=== PATIENT | female | born 1970 | race Caucasian/White ===

== ENCOUNTER → 2019-12-22 14:39 | Outpatient (BNVA) | payer OTHER, SELFPAY | PROVIDERS: Family Provider Nurse Practitioner; PCP Nurse Practitioner Family; Visit Provider Nurse Practitioner Family | DX: E11.9 Type 2 diabetes mellitus without complications (principal); R63.5 Abnormal weight gain; R53.83 Other fatigue; R31.9 Hematuria, unspecified; B00.9 Herpesviral infection, unspecified; I10 Essential (primary) hypertension | CPT/HCPCS: 80053; 80061; 81003; 82306; 82607; 83001; 83002; 83036; 84146; 84443; 85025 ==

== ENCOUNTER 2020-06-03 07:58 | Outpatient (CLI) | payer OTHER, SELFPAY ==
--- NOTE | 2020-06-03 08:00 | USCV_ITS ---
Yesenia Patel Age: 49 Gender: F : 1970 Exam Date: 06/03/2020 08:19 Ordering Phys: Court Ramsey MD ([email or web address]) Technologist: Nancy Brumfield Exam Location: [facility] – [place] Indication: BICUSPID VALVE BP: 128 / 83 HR: 67 Rhythm: Sinus Technical Quality: Adequate MEASUREMENTS (Male / Female) Normal Values 2D ECHO LV Diastolic Diameter PLAX 4.1 cm 4.2 - 5.9 / 3.9 - 5.3 cm LV Systolic Diameter PLAX 2.3 cm LV Chamber Size 3.5 cm IVS Diastolic Thickness 1.1 cm 0.6 - 1.0 / 0.6 - 0.9 cm IVS Systolic Thickness 1.4 cm LVPW Diastolic Thickness 0.9 cm 0.6 - 1.0 / 0.6 - 0.9 cm LVPW Systolic Thickness 1.5 cm RV Chamber Size 2.8 cm LVOT Diameter 2.0 cm LV Ejection Fraction 2D Teich 75.9 % LV Ejection Fraction MOD 2C 60.3 % LV Ejection Fraction 2C AL 60.0 % LA Diameter 2.8 cm LA Width 1.8 cm LA Height 3.0 cm RA Width 3.1 cm RA Height 4.0 cm Aorta at Sinotubular Diameter 2.7 cm M-MODE LV Diastolic Diameter MM 4.4 cm 4.2 - 5.9 / 3.9 - 5.3 cm LV Systolic Diameter MM 3.2 cm LV Ejection Fraction MM Teich 53.5 % IVS Diastolic Thickness MM 1.0 cm 0.6 - 1.0 / 0.6 - 0.9 cm IVS Systolic Thickness MM 1.2 cm LVPW Diastolic Thickness MM 1.1 cm 0.6 - 1.0 / 0.6 - 0.9 cm LVPW Systolic Thickness MM 1.3 cm RV Diastolic Diameter MM 0.9 cm Aortic Annulus Diameter 2.9 cm LA Ao Ratio MM 1.1 MV E Point Septal Separation 0.2 cm DOPPLER AV Peak Velocity 171.0 cm/s LVOT Peak Velocity 90.3 cm/s AV Area Cont Eq vti 2.1 cm squared AV Area Cont Eq pk 1.7 cm squared MV Area PHT 4.4 cm squared Mitral E to A Ratio 1.2 MV E' Velocity 48.0 cm/s Mitral E to MV E' Ratio 6.7 Mitral E to LV E' Lateral Ratio 6.6 Mitral E to LV E' Septal Ratio 6.8 TR Peak Velocity 167.3 cm/s TR Peak Gradient 11.2 mmHg TR Mean Velocity 110.9 cm/s TR Mean Gradient 5.9 mmHg TR Velocity Time Integral 38.5 cm TV Peak E Velocity 73.0 cm/s Right Atrial Pressure 3.0 mmHg Pulmonary Artery Systolic Pressu 14.2 mmHg PV Peak Velocity 80.0 cm/s RV Acceleration Time 0.2 s RV Ejection Time 0.3 s RV AcT/ET 0.5 FINDINGS Left Ventricle Normal left ventricular size and systolic function, EF 61 %. No regional wall motion abnormalities. Right Ventricle The right ventricle is normal in size and function. Right Atrium The right atrium is normal in size. Left Atrium The left atrium is normal in size. Mitral Valve Thickened mitral valve. Mild mitral annular calcification. Aortic Valve Aortic valve leaflets could not be visualized properly. Possibly bicuspid with a peak velocity of 1.71 m/s Tricuspid Valve No gross abnormalities noted Pulmonic Valve No gross abnormalities noted Pericardium Normal pericardium without effusion. Aorta Normal ascending aorta dimension. CONCLUSIONS Normal left ventricular size and systolic function, EF 61 %. No regional wall motion abnormalities. Thickened mitral valve. Mild mitral annular calcification. Aortic valve leaflets could not be visualized well. Possibly bicuspid. Peak velocity across the valve was 1. 71 m/s No significant stenotic or regurgitant lesions. Normal cardiac chamber sizes. No intracardiac shunts, based on color flow Doppler examination. Compared to the previous study from 04/19/2015, there may not be a significant change Dr Court Ramsey MD FACC (Electronically Signed) Final Date: 03 June 2020 10:25 S
== END 2020-06-03 07:59 | disposition home or self-care (01) ==
LOC: RAD 08:03
PROVIDERS: PCP Nurse Practitioner Family; Visit Provider Internal Medicine Cardiovascular Disease
DX: Q23.1 Congenital insufficiency of aortic valve (principal); I05.9 Rheumatic mitral valve disease, unspecified
CPT/HCPCS: 93306

== ENCOUNTER → 2022-05-08 10:41 | Outpatient (BNVA) | payer OTHER, SELFPAY | PROVIDERS: PCP Nurse Practitioner Family; Visit Provider Internal Medicine Cardiovascular Disease | DX: Q23.1 Congenital insufficiency of aortic valve (principal); R06.02 Shortness of breath; R00.2 Palpitations; N18.9 Chronic kidney disease, unspecified; R25.2 Cramp and spasm; I10 Essential (primary) hypertension; E11.65 Type 2 diabetes mellitus with hyperglycemia; R42 Dizziness and giddiness | CPT/HCPCS: 36415; 80048; 83735; 84443 ==

== ENCOUNTER 2022-11-30 07:57 | Outpatient (CLI) | payer OTHER, SELFPAY ==
--- NOTE | 2022-11-30 08:00 | USCV_ITS ---
Yesenia Patel Age: 52 Gender: F : 1970 Exam Date: 11/30/2022 08:19 Ordering Phys: Court Ramsey MD ([email or web address]) Technologist: CT Exam Location: [facility] – [place] Indication: BICUSP VALVE BP: 135 / 83 HR: 73 Rhythm: Sinus Technical Quality: Adequate MEASUREMENTS (Male / Female) Normal Values 2D ECHO LV Diastolic Diameter PLAX 4.0 cm 4.2 - 5.9 / 3.9 - 5.3 cm LV Systolic Diameter PLAX 2.4 cm IVS Diastolic Thickness 1.2 cm 0.6 - 1.0 / 0.6 - 0.9 cm IVS Systolic Thickness 1.5 cm LVPW Diastolic Thickness 0.9 cm 0.6 - 1.0 / 0.6 - 0.9 cm LVPW Systolic Thickness 1.7 cm LVOT Diameter 2.0 cm LV Ejection Fraction 2D Teich 67.1 % LV Ejection Fraction MOD 2C 65.8 % LV Ejection Fraction 2C AL 65.9 % LA Diameter 2.1 cm Aorta at Sinotubular Diameter 2.3 cm IVC Diameter 1.2 cm M-MODE Aortic Annulus Diameter 2.8 cm LA Ao Ratio MM 0.8 MV E Point Septal Separation 0.7 cm DOPPLER AV Peak Velocity 150.0 cm/s LVOT Peak Velocity 142.0 cm/s AV Area Cont Eq vti 3.4 cm squared AV Area Cont Eq pk 2.9 cm squared MV Peak Velocity 85.0 cm/s MV Area PHT 5.0 cm squared Mitral E to A Ratio 0.9 MV E' Velocity 34.0 cm/s Mitral E to MV E' Ratio 9.0 Mitral E to LV E' Lateral Ratio 8.9 Mitral E to LV E' Septal Ratio 9.3 TR Peak Velocity 131.0 cm/s TR Peak Gradient 6.9 mmHg TV Peak E Velocity 71.0 cm/s Right Atrial Pressure 3.0 mmHg Pulmonary Artery Systolic Pressu 9.9 mmHg PV Peak Velocity 126.0 cm/s RV Acceleration Time 0.3 s FINDINGS Left Ventricle Normal left ventricular size and systolic function, EF 60 %. No regional wall motion abnormalities. Grade I/IV diastolic dysfunction (abnormal relaxation filling pattern), normal to mildly elevated filling pressures. Normal left ventricular size and systolic function, EF 60 %. Mild left ventricular hypertrophy. Right Ventricle Normal right ventricular size and systolic function. Right Atrium Normal right atrial size. Left Atrium The left atrium is normal in size. Mitral Valve No gross abnormalities noted Aortic Valve The leaflets could not be visualized well. Peak velocity across the valve is 1.5 m/s Tricuspid Valve Structurally normal tricuspid valve. Pulmonic Valve No gross abnormalities noted Pericardium No pericardial effusion. Aorta Normal aortic annulus size. IVC Normal inferior vena cava. CONCLUSIONS Normal left ventricular size and systolic function, EF 60 %. No regional wall motion abnormalities. Grade I/IV diastolic dysfunction (abnormal relaxation filling pattern), normal to mildly elevated filling pressures. Normal left ventricular size and systolic function, EF 60 %. Mild left ventricular hypertrophy. Aortic valve leaflets could not be visualized well. Peak velocity across the valve is 1.5 m/s. Normal chamber sizes. There is no pericardial effusion. There are no intracardiac masses. Compared to the study from 06/03/2020, no significant change in the aortic valve peak velocity. Dr Court Ramsey MD FACC (Electronically Signed) Final Date: 01 December 2022 17:57 S
== END 2022-11-30 07:58 | disposition home or self-care (01) ==
PROVIDERS: PCP Nurse Practitioner Family; Visit Provider Internal Medicine Cardiovascular Disease
DX: R06.09 Other forms of dyspnea (principal)
CPT/HCPCS: 93306

== ENCOUNTER 2023-04-27 01:43 | Inpatient (IN) | payer OTHER, SELFPAY ==
[2023-04-27] VITALS (13 sets, daily range): BP systolic 119–152; BP diastolic 66–87; PULSE 44–86; RESP 15–22; TEMP 36.3–36.9; O2SAT 96–98; BMI 28.3
--- NOTE | 2023-04-27 01:51 | XRR_ITS ---
PROCEDURE INFORMATION: Exam: XR Chest Exam date and time: 04/27/2023 1:56 AM Age: 52 years old Clinical indication: Prior surgery; Surgery date: 6+ months; Surgery type: Breast reduction; Patient HX: Epigastric pain with n/v TECHNIQUE: Imaging protocol: Radiologic exam of the chest. Views: 1 view. COMPARISON: CR XR chest 1V [id number] 10/23/2017 7:50 PM FINDINGS: Lungs: Unremarkable. No consolidation. Pleural spaces: Unremarkable. No pleural effusion. No pneumothorax. Heart/Mediastinum: Unremarkable. No cardiomegaly. Bones/joints: Degenerative changes are noted in the bones. XR/XR chest 1V portable [id number] IMPRESSION: No acute cardiopulmonary disease.
--- NOTE | 2023-04-27 02:01 | ECG_ITS ---
[facility] Test Date: 2023-04-27 Pat Name: Yesenia Patel Department: Room: Gender: Female Blood Coordinator: : 1970 Requested By: Ovidio Singh Order Number: [id number] Lasha MD: Essence Carrillo M.D. Measurements Intervals [place] Rate: 79 P: 63 RI: 204 QRS: 90 QRSD: 98 T: 59 QT: 377 QTc: 432 Interpretive Statements SINUS RHYTHM Compared to ECG 10/23/2017 22:04:55 No significant changes Electronically Signed On 04-27-2023 12:11:23 CDT by Essence Carrillo M.D. [id number] f
--- NOTE | 2023-04-27 02:02 | CTR_ITS ---
PROCEDURE INFORMATION: Exam: CT Abdomen And Pelvis With Contrast Exam date and time: 04/27/2023 2:29 AM Age: 52 years old Clinical indication: Nausea and vomiting; Abdominal pain; Prior surgery; Surgery date: 6+ months; Surgery type: Breast reduction. Hysterectomy; Patient HX: Epigastric pain with n/v. TECHNIQUE: Imaging protocol: Computed tomography of the abdomen and pelvis with contrast. Radiation optimization: All CT scans at this facility use at least one of these dose optimization techniques: automated exposure control; mA and/or kV adjustment per patient size (includes targeted exams where dose is matched to clinical indication); or iterative reconstruction. Contrast material: OMNI 350; Contrast volume: 100 ml; Contrast route: INTRAVENOUS (IV); REPORTING DATA: Count of CT and Cardiac NM exams in prior 12 months: This patient has received 0 known CTs and 0 known cardiac nuclear medicine studies in the 12 months prior to the current study. COMPARISON: CR (CHEST, ) 04/27/2023 1:56 AM RADIATION DOSE METRICS: Total DLP (mGy-cm): 1141.62 FINDINGS: Liver: There is a small area of geographic relative hypodensity/hypoenhancement along the falciform ligament most likely representing focal fatty infiltration. Gallbladder and bile ducts: The gallbladder is distended. Pancreas: Normal. No ductal dilation. Spleen: Normal. No splenomegaly. Adrenal glands: Normal. No mass. Kidneys and ureters: The kidneys enhance symmetrically and there is no hydronephrosis. Probable parapelvic cysts are noted in the left. This could be confirmed with delayed postcontrast CT of the abdomen. Stomach and bowel: The colon is relatively contracted with scattered stool in the cecum and ascending segments. Appendix: No evidence of appendicitis. Intraperitoneal space: Unremarkable. No free air. No significant fluid collection. Vasculature: Unremarkable. No abdominal aortic aneurysm. Lymph nodes: Unremarkable. No enlarged lymph nodes. Urinary bladder: The urinary bladder is contracted. Reproductive: Gynecologic structures are not well seen and may be atrophic or surgically absent. There is a 4-5 mm enhancing nodule in the apex of the cervix at the level of the oversewn cuff on the left please correlate clinically . Consider MRI of the pelvis with and without intravenous contrast to further assess. Bones/joints: Mild degenerative change is noted in the bones. There is a questionable vague lucency in the right side of L5. Please correlate with nuclear bone scan. Soft tissues: Unremarkable. CT/CT abdomen pelvis w con* [id number] IMPRESSION: No acute intra-abdominal process. Query small focal fatty infiltration of the liver. Probable left-sided parapelvic renal cysts versus caliectasis may be differentiated with delayed postcontrast CT imaging of the abdomen. Apparent hysterectomy with a small enhancing nodule along the left apex of the cervical cuff. Please correlate with MRI of the pelvis with and without intravenous contrast. Vague lucency within the right side of L5. Recommend nuclear bone scan to further assess.
--- NOTE | 2023-04-27 02:05 | W.ED.ABDPA2 ---
HPI - Abdominal Pain General: Chief Complaint: Abdominal Pain Stated Complaint: ABD PAIN Time Seen by Provider: 04/27/23 01:47 Source: patient and family History of Present Illness: 52-year-old female with sudden onset abdominal pain around an hour ago. She is nauseated, and has been vomiting. No known starting event. She has been having these pains on and off, but not nearly as severe, according to her . She presents by ambulance. She was given 50 mcg of fentanyl in route, without relief. No fever. MD elicited complaint: abdominal pain Associated Symptoms: Reports diarrhea, nausea and vomiting; Denies chills, fever(s) and hematochezia Review of Systems Const: Denies: fever(s), chills or body aches Card: Denies: chest pain or palpitations Resp: Denies: dyspnea, productive cough, non-productive cough or wheezing GI: Reports: abdominal pain, nausea, vomiting and diarrhea; Denies: hematochezia : Denies: difficulty voiding Skin/Breast: Denies: rash Neuro: Denies: headache(s), weakness in extremities, dizziness or confusion PFSH ED PFSH: Medical History (Updated 04/27/23 @ 04:04 by Ovidio Cancino DO) Benign essential HTN Bicuspid aortic valve Herpes Leg swelling Palpitations Type 2 diabetes mellitus Surgical History Hx of breast reduction, elective S/P hysterectomy Family History Mother Cancer THYROID Diabetes CAD (coronary artery disease) Stroke Brother CAD (coronary artery disease) Diabetes Denies family history of Clotting disorder Dementia Chronic kidney disease (CKD) Suicide Anesthesia complication Bleeding disorder Lung disease Social History Smoking and tobacco status: former smoker Second hand smoke exposure: No Alcohol intake: never Substance/Drug Use: never Household members: spouse Marital status: Physical Exam Const: COMMON NORMALS: no acute distress GENERAL APPEARANCE: cooperative and ill appearing HENMT: COMMON NORMALS: normocephalic, atraumatic and Normal external nose present HEAD & SCALP: normocephalic and atraumatic FACE & SINUS: normal facial exam and face symmetric NOSE: Normal external nose present Eye: COMMON NORMALS: Equal, round and reactive pupils present and EOMs intact bilaterally PUPIL: Yes Equal, round and reactive pupils present Neck/C-Spine: GENERAL: Yes trachea midline Chest: CHEST: Yes Symmetrical chest wall rise Resp: COMMON NORMALS: normal respiratory effort, No retractions, No use of accessory muscles and clear to auscultation bilaterally AUSCULTATION: clear to auscultation bilaterally Cardio: COMMON NORMALS: regular rate and regular rhythm RATE: regular rate RHYTHM: regular rhythm GI: COMMON NORMALS: Normal to inspection, nondistended, normoactive bowel sounds present and Soft to palpation PALPATION: Yes Soft to palpation and Yes Tenderness to palpation present (GI) Extremity: COMMON NORMALS: no pedal edema Neuro: ISAÍAS COMA SCALE: document GCS findings Isaías coma scale eye opening: Spontaneous [place] coma scale verbal response: Orientated Isaías coma scale motor response: Obey commands Isaías coma scale total score: 15 SENSORY EXAM: Yes extremities (intact) Psych: COMMON NORMALS: speech normal SPEECH: Yes normal speech Skin: COMMON NORMALS: no rashes or lesions noted GENERAL SKIN EXAM: no rashes or lesions noted Course Vital Signs: Vital signs: Vital Signs Temperature 98.3 F 04/27/23 01:45 Pulse Rate 78 04/27/23 01:53 Respiratory Rate 20 H 04/27/23 01:53 Blood Pressure 147/87 04/27/23 01:53 Pulse Oximetry 98 04/27/23 01:53 MDM - Abdominal Pain Medical Decision Making 52-year-old female with epigastric pain vomiting. No fever. She is bradycardic now with heart rates in the 45-60s. She is very tender in her epigastrium. CBC is normal. BMP is normal. Liver enzymes are essentially normal. Lipase is greater than 4000. Chest x-ray is negative. CT shows no acute intra-abdominal process. No definite stranding around the pancreas. Gallbladder is mildly distended. She is improved to some degree after Dilaudid, Haldol, and Zofran, but still very nauseated, continuing to vomit, and still in pain. She will be admitted for pancreatitis. This could be pancreatitis related to Ozempic as she started that a couple of months ago, versus another unknown cause, but does not appear to be obstructive given her normal bilirubin of 0.4. Lab Data 04/27/23 01:30 04/27/23 01:30 Labs/Radiology: Radiology Impressions Chest X-Ray 04/27/23 01:51 IMPRESSION: No acute cardiopulmonary disease. Abdomen/Pelvis CT 04/27/23 02:02 IMPRESSION: No acute intra-abdominal process. Query small focal fatty infiltration of the liver. Probable left-sided parapelvic renal cysts versus caliectasis may be differentiated with delayed postcontrast CT imaging of the abdomen. Apparent hysterectomy with a small enhancing nodule along the left apex of the cervical cuff. Please correlate with MRI of the pelvis with and without intravenous contrast. Vague lucency within the right side of L5. Recommend nuclear bone scan to further assess. Laboratory Results WBC 10.09 10^3/uL (3.29-11.43) 04/27/23 01:30 RBC 4.89 10^6/uL (3.85-5.65) 04/27/23 01:30 Hgb 13.80 g/dL (11.27-16.99) 04/27/23 01:30 Hct 40.8 % (36-47) 04/27/23 01:30 MCV 83.4 fl (85-98) L 04/27/23 01:30 MCH 28.2 pg (27-33) 04/27/23 01:30 MCHC 33.8 g/dL (30-55) 04/27/23 01:30 RDW 13.2 % (12.1-15.1) 04/27/23 01:30 Plt Count 310 10^3/cmm (157-399) 04/27/23 01:30 MPV 10.3 fL (7.4-10.4) 04/27/23 01:30 Neut % (Auto) 49.0 % 04/27/23 01:30 Lymph % (Auto) 40.6 % 04/27/23 01:30 [place]cock % (Auto) 7.9 % 04/27/23 01:30 Eos % (Auto) 1.6 % 04/27/23 01:30 Baso % (Auto) 0.6 % 04/27/23 01:30 Neut # (Auto) 4.94 10^3/uL (1.8-7.7) 04/27/23 01:30 Lymph # (Auto) 4.1 10^3/uL (0.8-4.8) 04/27/23 01:30 Hitchcock # (Auto) 0.8 10^3/uL (0.2-0.9) 04/27/23 01:30 Eos # (Auto) 0.2 10^3/uL (0.0-0.8) 04/27/23 01:30 Baso # (Auto) 0.1 10^3/uL (0.0-0.1) 04/27/23 01:30 Nucleated RBC % (auto) 0 % 04/27/23 01:30 Nucleated RBCs # 0.0 /100WBC 04/27/23 01:30 PT 12.00 SECONDS (12.1-14.9) L 04/27/23 01:30 INR 0.86 (0.8-1.2) 04/27/23 01:30 Sodium 139 mmol/L (136-145) 04/27/23 01:30 Potassium 3.9 mmol/L (3.5-5.1) 04/27/23 01:30 Chloride 102 mmol/L (98-107) 04/27/23 01:30 Carbon Dioxide 23 mmol/L (22-29) 04/27/23 01:30 Anion Gap 17.9 (5-19) 04/27/23 01:30 BUN 12 mg/dL (6-20) 04/27/23 01:30 Creatinine 0.8 mg/dL (0.5-0.9) 04/27/23 01:30 GFR Calculation 75.9 mL/min (90-130) L 04/27/23 01:30 Glucose 136 mg/dL (65-115) H 04/27/23 01:30 Calculated Osmolality 290 mOsm/kg (285-295) 04/27/23 01:30 Calcium 9.7 mg/dL (8.5-10.5) 04/27/23 01:30 Total Bilirubin 0.4 mg/dL (0.15-1.2) 04/27/23 01:30 AST 41 U/L (0-32) H 04/27/23 01:30 ALT 34 U/L (0-33) H 04/27/23 01:30 Alkaline Phosphatase 144 U/L (35-105) H 04/27/23 01:30 Troponin T Baseline 6 ng/L (0-10) 04/27/23 01:30 NT-Pro-B Natriuret Pep 36 pg/mL (0-125) 04/27/23 01:30 Total Protein 7.2 g/dL (6.6-8.7) 04/27/23 01:30 Albumin 4.4 g/dL (3.5-5.2) 04/27/23 01:30 Globulin 2.8 g/dL (1.3-4.6) 04/27/23 01:30 Lipase > 4040 U/L (13-60) H 04/27/23 01:30 Urine Color Yellow (Yellow) 04/27/23 03:30 Urine Appearance Clear (CLEAR) 04/27/23 03:30 Urine pH 6.5 (5-7) 04/27/23 03:30 Ur Specific [place] 1.015 (1.005-1.030) 04/27/23 03:30 Urine Protein Trace (Negative) 04/27/23 03:30 Urine Glucose (UA) 1+ (Normal) H 04/27/23 03:30 Urine Ketones 1+ (Negative) H 04/27/23 03:30 Urine Blood Neg (Negative) 04/27/23 03:30 Urine Nitrate Negative (Negative) 04/27/23 03:30 Urine Bilirubin Neg (Negative) 04/27/23 03:30 Urine Urobilinogen Neg mg/dL (Negative) 04/27/23 03:30 Ur Leukocyte Esterase Negative (Negative) 04/27/23 03:30 Urine RBC Rare /hpf (0-2) 04/27/23 03:30 Urine WBC Rare /hpf (0-5) 04/27/23 03:30 Ur Squamous Epith Cells 5-10 /hpf (0-5) H 04/27/23 03:30 Amorphous Sediment Not Reportable 04/27/23 03:30 Urine Bacteria Trace /hpf (NONE) 04/27/23 03:30 Urine Opiates Screen Positive ng/mL (Negative) H 04/27/23 03:30 Ur Barbiturates Screen Negative ng/mL (Negative) 04/27/23 03:30 Ur Phencyclidine Scrn Negative ng/mL (Negative) 04/27/23 03:30 Ur Amphetamines Screen Negative ng/mL (Negative) 04/27/23 03:30 U Benzodiazepines Scrn Positive ng/mL (Negative) H 04/27/23 03:30 Urine Cocaine Screen Negative ng/mL (Negative) 04/27/23 03:30 U Marijuana (THC) Screen Negative ng/mL (Negative) 04/27/23 03:30 XR interpretation done by ED provider, pending radiology final review Discharge Plan Discharge Patient Disposition: Admitted As Inpatient Clinical Impression: Pancreatitis Condition: Stable Coding Level of Care Code ED Clinical Operations Specialist for Candice Stewart
[2023-04-27] MEDS: ondansetron 2 mg/ML SDV 2 mL 4 MG IVP ×2 (02:14→06:29)
[2023-04-27 02:16] LABS: Basophils # 0.1 10^3/uL (0.0-0.1); Basophils % 0.6 %; Eosinophils # 0.2 10^3/uL (0.0-0.8); Eosinophils % 1.6 %; Hematocrit 40.8 % (36-47); Lymphocytes # 4.1 10^3/uL (0.8-4.8); Lymphocytes % 40.6 %; Mean Corpuscular HGB Conc 33.8 g/dL (30-55); Mean Corpuscular Hemoglobin 28.2 pg (27-33); Mean Corpuscular Volume 83.4 fl (85-98); Mean Platelet Volume 10.3 fL (7.4-10.4); Monocytes # 0.8 10^3/uL (0.2-0.9); Monocytes % 7.9 %; Neutrophils # 4.94 10^3/uL (1.8-7.7); Nucleated Red Blood Cells % 0 %; Platelet Count 310 10^3/cmm (157-399); Red Blood Count 4.89 10^6/uL (3.85-5.65); Red Cell Distribution Width 13.2 % (12.1-15.1); White Blood Count 10.09 10^3/uL (3.29-11.43)
[2023-04-27] MEDS: HYDROmorphone 1 mg/mL INJ 1 mL 0.5 MG IVP (02:17)
[2023-04-27] MEDS: iohexol 350 mg/mL 500 mL Btl (per mL) IV (02:30)
[2023-04-27 02:34] LABS: Troponin(5th) Baseline 6 ng/L (0-10)
[2023-04-27 02:44] LABS: Alanine Aminotransferase 34 U/L (0-33); Albumin Level 4.4 g/dL (3.5-5.2); Alkaline Phosphatase 144 U/L (35-105); Anion Gap 17.9 (5-19); Aspartate Amino Transferase 41 U/L (0-32); Blood Urea Nitrogen 12 mg/dL (6-20); Calcium 9.7 mg/dL (8.5-10.5); Carbon Dioxide 23 mmol/L (22-29); Chloride 102 mmol/L (98-107); Globulin 2.8 g/dL (1.3-4.6); Glomerular Filtration Rate 75.9 mL/min (90-130); Glucose 136 mg/dL (65-115); NT Pro B Type Natriuretic Pept 36 pg/mL (0-125); Osmolality Calculated 290 mOsm/kg (285-295); Potassium 3.9 mmol/L (3.5-5.1); Sodium 139 mmol/L (136-145); Total Bilirubin 0.4 mg/dL (0.15-1.2); Total Protein 7.2 g/dL (6.6-8.7)
[2023-04-27] MEDS: haloperidol inj 5 mg/mL INJ 1 mL 3 MG IVP (02:44)
[2023-04-27] MEDS: sodium chloride 0.9% 1,000 ML 999 ML IV (03:33)
[2023-04-27 03:39] LABS: INR 0.86 (0.8-1.2)
[2023-04-27 03:46] LABS: Add Urine Microscopic? YES; Bacteria Urine TRACE /hpf; Bilirubin Urine Neg (Negative); Blood Urine Neg (Negative); Glucose Urine UA 1+ (Normal); Ketones Urine 1+ (Negative); Leukocyte Esterase Urine Negative (Negative); Nitrate Urine Negative (Negative); Protein Urine Trace (Negative); RBC Urine RARE /hpf (0-2); Specific Gravity, Urine 1.015 (1.005-1.030); Urine Appearance Clear (CLEAR); Urine Color Yellow (Yellow); Urobilinogen Urine Neg (Negative); WBC Urine RARE /hpf (0-5); pH Urine 6.5 (5-7)
[2023-04-27 03:47] LABS: Add Urine Culture? No; Amphetamines Screen Urine Negative (Negative); Barbiturates Screen Urine Negative (Negative); Benzodiazepines Screen Urine Positive (Negative); Cocaine Screen Urine Negative (Negative); Opiate Screen Urine Positive (Negative); PCP Screen Urine Negative (Negative); THC Screen Urine Negative (Negative)
[2023-04-27 04:12] LABS: Troponin 5 2HR Delta 0 ABS# (0-10)
--- NOTE | 2023-04-27 05:14 | ECG_ITS ---
[facility] Test Date: 2023-04-27 Pat Name: Yesenia Patel Department: Room: 259 Gender: Female Drawbridge Operator: : 1970 Requested By: Ovidio Singh Order Number: [id number] Colby MD: Essence Carrillo M.D. Measurements Intervals [place] Rate: 56 P: 58 [place]: 213 QRS: 73 QRSD: 101 T: 60 QT: 437 QTc: 425 Interpretive Statements SINUS BRADYCARDIA WITH SINUS ARRHYTHMIA WITH FIRST DEGREE AV BLOCK Compared to ECG 04/27/2023 02:01:46 First degree AV block now present Sinus rhythm no longer present Electronically Signed On 04-27-2023 12:12:06 CDT by Essence Carrillo M.D. [id number]
--- NOTE | 2023-04-27 05:26 | P.HP_ITS ---
Providers/Chief Complaint Admitting Physician: Barbara Laguerre MD Primary Care Provider: Stefanie Roy APN Chief Complaint: ABD PAIN History of Present Illness Yesenia Patel is a 52 year old female with history of type II diabetes hypertension presented with complaint of nausea vomiting and severe abdominal pain since 12 hours. She reports pain in epigastric and right upper quadrant severe 10/10 crampy radiating to back aggravated by nausea and vomiting no relieving factors. She denies any alcohol abuse. She did not have similar complaints in the past. On further questioning she mentions she was recently started on Ozempic 3 months ago and since then she has been having off-and-on gastric issues. She denies any history of fever cold cough chest pain or urina ry complaints. Also reports eating catered food 2 days ago. Review of Systems Narrative: As per HPI Medications/Allergies Home Medications Medication Instructions Recorded Confirmed Last Taken Type bupropion HCl 150 mg 24 hr tablet, See Rx Instructions .Route 11/25/20 04/27/23 04/26/23 21:00 Rx extended release .COMPLEX #30 tabs acyclovir 400 mg tablet 400 mg PO TID PRN fever blister 05/09/21 04/27/23 Unknown History albuterol sulfate 90 mcg/actuation 1 puff inhalation Q4H PRN 05/08/22 04/27/23 Unknown History aerosol inhaler Shortness Of Breath lisinopril 40 mg tablet 20 mg PO BEDTIME 05/08/22 04/27/23 04/26/23 21:00 History semaglutide 0.25 mg or 0.5 mg (2 0.5 mg SUBCUT Q7D 04/27/23 04/27/23 04/22/23 History mg/3 mL) subcutaneous pen injector (Ozempic) Allergies Allergy/AdvReac Type Severity Reaction Status Date / Time codeine AdvReac Severe NAUSEA Verified 11/05/22 10:14 PFSH Acute PFSH: Medical History Benign essential HTN Bicuspid aortic valve Herpes Leg swelling Palpitations Type 2 diabetes mellitus Surgical History Hx of breast reduction, elective S/P hysterectomy Family History Mother Cancer THYROID Diabetes CAD (coronary artery disease) Stroke Brother CAD (coronary artery disease) Diabetes Denies family history of Clotting disorder Dementia Chronic kidney disease (CKD) Suicide Anesthesia complication Bleeding disorder Lung disease Social History Smoking and tobacco status: former smoker Second hand smoke exposure: No Alcohol intake: never Substance/Drug Use: never Household members: spouse Marital status: Vitals/I&O/Wt Last Vital Signs Temp 98.3 F 04/27/23 01:45 Pulse 79 04/27/23 04:54 Resp 22 H 04/27/23 04:24 BP 119/66 04/27/23 04:24 Pulse Ox 96 04/27/23 04:54 O2 Del Method Room Air 04/27/23 04:59 04/26/23 04/26/23 04/27/23 14:59 22:59 06:59 Intake Total 1000 / 1000 Balance 1000 / 1000 Weight last 48 hrs Weight 74.843 kg Physical Exam Narrative: She is alert awake oriented x3 in moderate acute distress due to pain Chest clear to auscultation bilaterally Cardiovascular normal heart sounds regular rhythm Abdomen soft mildly distended tender in epigastric and right upper quadrant normal bowel sounds Extremities no pedal edema noted Data 04/27/23 01:30 04/27/23 01:30 CT Abd/Pel: Radiologist's impression: MPRESSION: No acute intra-abdominal process. ? Query small focal fatty infiltration of the liver. ? Probable left-sided parapelvic renal cysts versus caliectasis may be differentiated with delayed postcontrast CT imaging of the abdomen. ? Apparent hysterectomy with a small enhancing nodule along the left apex of the cervical cuff.? Please correlate with MRI of the pelvis with and without intravenous contrast. ? Vague lucency within the right side of L5.? Recommend nuclear bone scan to further assess. CXR: Radiologist's impression: No acute findings EKG 1: EKG computer-generated impression: SINUS BRADYCARDIA WITH SINUS ARRHYTHMIA WITH FIRST DEGREE AV BLOCK A&P Assessment and plan (1) Pancreatitis: Plan 52-year-old female with history of type 2 diabetes hypertension presented with complaint of nausea vomiting and severe abdominal pain since 12 hours and found to have lipase of more than 4000, likely secondary to acute pancreatitis although CT abdomen was negative for any acute findings. In view of elevated lipase but negative CT abdomen acute pancreatitis likely precipitated by Ozempic. Will discontinue Ozempic, low-dose correction scale insulin for now N.p.o. for now except medications Resume home medications IV Protonix 40 mg every 12 hours IV fluids normal saline at 100 mL/h Subcutaneous Lovenox 30 mg daily for DVT prophylaxis She is full code Attestations Medical Necessity Statement*: She needs continued hospitalization for more than 2 midnights for management of acute pancreatitis Time Spent in Patient Care: 30 minutes Coding Level of Care Code Acute Code for [facility] Fwd Diagnoses Pancreatitis K85.90 Time Spent (min) 30
[2023-04-27] MEDS: buPROPion XL (24 HR) 150 mg Tablet PO (06:22)
[2023-04-27] MEDS: enoxaparin 30 mg/0.3 mL Syringe SUBCUT (06:22)
[2023-04-27] MEDS: sodium chloride 0.9% 1,000 ML 100 ML IV ×2 (06:28→17:35)
[2023-04-27] MEDS: pantoprazole 40 mg SDV IVP ×2 (06:29→17:34)
[2023-04-27 06:43] LABS: Glucose Point of Care 170 mg/dL (70-110)
[2023-04-27] MEDS: insulin lispro 100 unit/1 mL SUBCUT (08:15)
[2023-04-27 09:09] LABS: Troponin 5 6HR Delta 0 ng/L (0-12)
[2023-04-27 09:53] LABS: Glucose Point of Care 113 mg/dL (70-110)
[2023-04-27] MEDS: morphine 4 mg/mL SDV 1 mL 2 MG IVP ×2 (10:07→18:02)
--- NOTE | 2023-04-27 12:31 | PM.MISC ---
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
--- NOTE | 2023-04-27 12:32 | USR_ITS ---
PROCEDURE INFORMATION: Exam: US Abdomen, Limited; Right Upper Quadrant Exam date and time: 04/27/2023 1:12 PM Age: 52 years old Clinical indication: Condition or disease; Pancreatic condition; Pancreatitis; Additional info: Pancreatitsi TECHNIQUE: Imaging protocol: Real time ultrasound of the abdomen with image documentation. Limited exam focused on the right upper quadrant. COMPARISON: CT abdomen pelvis w con* [id number] 04/27/2023 2:29 AM FINDINGS: Liver: Normal. No masses. Gallbladder: No gallstones. There is no gallbladder wall thickening. Suggestion of mild pericholecystic fluid. Biliary ducts: Normal. No stones. No dilation. Visualized common duct measures 5 mm in diameter. Pancreas: Visualized pancreas is unremarkable. Right kidney: Normal. No mass. No hydronephrosis. Measures 11.6 cm in length. Aorta: Visualized aorta and IVC demonstrate normal caliber. US/US gall bladder [id number] IMPRESSION: Suggestion of mild pericholecystic fluid. Otherwise unremarkable exam.
[2023-04-27 16:55] LABS: Glucose Point of Care 74 mg/dL (70-110)
[2023-04-27 21:00] LABS: Glucose Point of Care 94 mg/dL (70-110)
[2023-04-27] MEDS: NON-FORMULARY MEDICATION PO (21:23)
[2023-04-27 21:36] LABS: Glucose Point of Care 107 mg/dL (70-110)
[2023-04-28] MEDS: sodium chloride 0.9% 1,000 ML 100 ML IV ×2 (03:12→14:06)
[2023-04-28 04:00] VITALS: BP 149/77; PULSE 67; RESP 17; TEMP 36.7; O2SAT 96
[2023-04-28 04:08] LABS: Basophils % 0.5 %; Eosinophils # 0.1 10^3/uL (0.0-0.8); Eosinophils % 0.8 %; Hematocrit 34.7 % (36-47); Lymphocytes # 2.1 10^3/uL (0.8-4.8); Lymphocytes % 26.7 %; Mean Corpuscular HGB Conc 32.9 g/dL (30-55); Mean Corpuscular Hemoglobin 28.4 pg (27-33); Mean Corpuscular Volume 86.5 fl (85-98); Mean Platelet Volume 9.7 fL (7.4-10.4); Monocytes # 0.6 10^3/uL (0.2-0.9); Monocytes % 8.1 %; Neutrophils # 5.06 10^3/uL (1.8-7.7); Neutrophils % 63.6 %; Nucleated Red Blood Cells % 0 %; Platelet Count 195 10^3/cmm (157-399); Red Blood Count 4.01 10^6/uL (3.85-5.65); Red Cell Distribution Width 13.3 % (12.1-15.1); White Blood Count 7.94 10^3/uL (3.29-11.43)
[2023-04-28 04:39] LABS: Glucose Point of Care 108 mg/dL (70-110)
[2023-04-28 04:41] LABS: Alanine Aminotransferase 87 U/L (0-33); Albumin Level 3.3 g/dL (3.5-5.2); Alkaline Phosphatase 92 U/L (35-105); Anion Gap 10.5 (5-19); Aspartate Amino Transferase 39 U/L (0-32); Blood Urea Nitrogen 4 mg/dL (6-20); Calcium 8.1 mg/dL (8.5-10.5); Carbon Dioxide 24 mmol/L (22-29); Chloride 108 mmol/L (98-107); Globulin 2.4 g/dL (1.3-4.6); Glomerular Filtration Rate 88.6 mL/min (90-130); Glucose 107 mg/dL (65-115); Magnesium 1.9 mg/dL (1.7-2.3); Osmolality Calculated 285 mOsm/kg (285-295); Potassium 3.5 mmol/L (3.5-5.1); Sodium 139 mmol/L (136-145); Total Bilirubin 0.4 mg/dL (0.15-1.2); Total Protein 5.7 g/dL (6.6-8.7)
[2023-04-28] MEDS: enoxaparin 40 mg/0.4 mL Syringe SUBCUT (05:21)
[2023-04-28 05:29] VITALS: RESP 16
[2023-04-28] MEDS: morphine 4 mg/mL SDV 1 mL 2 MG IVP (05:29)
[2023-04-28] MEDS: pantoprazole 40 mg SDV IVP ×2 (06:16→17:47)
[2023-04-28 06:24] LABS: Glucose Point of Care 118 mg/dL (70-110)
[2023-04-28 07:32] VITALS: BP 125/73; PULSE 72; RESP 16; TEMP 36.4; O2SAT 97
[2023-04-28 11:06] LABS: Glucose Point of Care 109 mg/dL (70-110)
[2023-04-28 12:00] VITALS: BP 135/83; PULSE 73; RESP 16; TEMP 36.8; O2SAT 97
[2023-04-28] MEDS: acetaminophen 325 mg Tablet 650 MG PO ×2 (14:48→22:37)
[2023-04-28 16:00] VITALS: BP 146/79; PULSE 67; RESP 16; TEMP 36.8; O2SAT 97
--- NOTE | 2023-04-28 16:06 | PM.PN ---
Subjective Subjective: Reports still having some nausea and abdominal pain. She has been able to tolerate some of her clear liquid diet. Vitals/I&O/Wt Last Vital Signs Temp 98.2 F 04/28/23 12:00 Pulse 73 04/28/23 12:00 Resp 16 04/28/23 12:00 BP 135/83 04/28/23 12:00 Pulse Ox 97 04/28/23 12:00 O2 Del Method Room Air 04/28/23 12:00 04/28/23 04/28/23 04/28/23 06:59 14:59 22:59 Intake Total 961.667 / 0909.534 4728 / 1480 Balance 961.667 / 3369.386 0898 / 1480 Weight last 48 hrs Weight 165 lb Physical Exam Narrative: General: Cooperative patient in no apparent distress. Well developed. HEENT: Normocephalic, Atraumatic. External ears normal. Nasal passages patent without drainage. MMM. Heart: RRR. Resp: LCTA. No respiratory distress, no use of accessory muscles. Abd: Soft, nondistended, generalized tenderness throughout. Extremities: No edema. Skin: No rash or lesions on exposed areas. Data 04/28/23 03:49 04/28/23 03:49 A&P Assessment and plan (1) Pancreatitis: Plan 52-year-old female admitted for acute pancreatitis. Continue close inpatient monitoring. We will continue clear liquid diet for now, and advance diet as tolerated. IV fluids, pain medication. Will switch or oral pain medication prior to discharge. Discontinue Ozempic. Recommend that she not take any further doses and discuss with PCP on discharge. Resume home medications when tolerating oral intake. Labs this morning ok Will recheck in a.m. Discharge to home when pain is controlled on oral pain medication, and when able to tolerate oral diet. Code Status: Full IVF: NS at 100 DVT PPx: Lovenox GI PPx: Protonix ABx: None Diet: Clear liquid Discharge plan: Home when able. Attestations Medical Necessity Statement*: Continue inpatient treatment for acute pancreatitis, IV fluids, IV pain medication with transition to oral when tolerated. Coding Level of Care Code Acute Code for [facility]g Fwd Straight Forward/Low MDM includes number and complexity of problems actively addressed during encounter, amount and/or complexity of data reviewed/ordered and described risk of complication, morbidity or mortality of management as documented Diagnoses Pancreatitis K85.90
[2023-04-28 16:41] LABS: Glucose Point of Care 93 mg/dL (70-110)
[2023-04-28 19:25] VITALS: BP 135/84; PULSE 74; RESP 18; TEMP 36.9; O2SAT 98
[2023-04-28 19:52] LABS: Glucose Point of Care 90 mg/dL (70-110)
[2023-04-28] MEDS: NON-FORMULARY MEDICATION PO (21:27)
[2023-04-29] VITALS: BP 143/78; PULSE 62; RESP 18; TEMP 36.9; O2SAT 98
[2023-04-29] MEDS: sodium chloride 0.9% 1,000 ML 100 ML IV ×2 (00:02→10:18)
[2023-04-29 04:32] VITALS: BP 129/74; PULSE 69; RESP 16; TEMP 37.2; O2SAT 97
[2023-04-29] MEDS: pantoprazole 40 mg SDV IVP (05:22)
[2023-04-29] MEDS: enoxaparin 40 mg/0.4 mL Syringe SUBCUT (05:23)
[2023-04-29 06:40] LABS: Glucose Point of Care 104 mg/dL (70-110)
[2023-04-29 07:23] VITALS: BP 131/73; PULSE 60; RESP 15; TEMP 36.6; O2SAT 95
[2023-04-29] MEDS: acetaminophen 325 mg Tablet 650 MG PO (10:15)
--- NOTE | 2023-04-29 10:29 | PM.DCS ---
Discharge Providers Date of Admission: 04/27/23 04:05 Date of Discharge: April 29, 2023 Attending Provider at Admission: Barbara Laguerre MD Attending Provider at Discharge: Mika Lai MD Primary Care Provider: Stefanie Roy APN Diagnoses at Discharge Discharge Diagnosis (1) Pancreatitis: Status: Acute Reason for Visit Reason for Visit: ABD PAIN Hospital Course Hospital Course 52-year-old female who was admitted to the hospital for management evaluation of pancreatitis, which was Ozempic induced, after 48 hours of conservative management patient was able to tolerate diet, nausea and vomiting improved, she was given IV fluids, she required opioids during hospitalization, at the time of discharge she will get morphine and Zofran. I have asked her to stop taking Ozempic and follow-up with PCP for further recommendations for her diabetes management. She did have high alkaline phosphatase with abnormal liver enzymes, gallbladder ultrasound did not show any signs of gallstones, pericholecystic fluid without any active signs of infection. She remained afebrile. She is being discharged with stable hemodynamics Physical Exam Narrative: Awake and alert GCS 15 Abdomen soft S1, S2 Pleasant cooperative is at the bedside Discharge Data Studies Completed and Pending Completed Studies During Hospitalization Category Date Time Status CT abdomen pelvis w con* [id number] Urgent Cat Scan 04/27/23 02:02 Completed XR chest 1V portable [id number] Stat Exams 04/27/23 01:51 Completed US gall bladder [id number] Routine Ultrasound 04/27/23 12:32 Completed Radiology Impressions Chest X-Ray 04/27/23 01:51 IMPRESSION: No acute cardiopulmonary disease. Abdomen/Pelvis CT 04/27/23 02:02 IMPRESSION: No acute intra-abdominal process. Query small focal fatty infiltration of the liver. Probable left-sided parapelvic renal cysts versus caliectasis may be differentiated with delayed postcontrast CT imaging of the abdomen. Apparent hysterectomy with a small enhancing nodule along the left apex of the cervical cuff. Please correlate with MRI of the pelvis with and without intravenous contrast. Vague lucency within the right side of L5. Recommend nuclear bone scan to further assess. Gallbladder Ultrasound 04/27/23 12:32 IMPRESSION: Suggestion of mild pericholecystic fluid. Otherwise unremarkable exam. Laboratory Results WBC 7.94 10^3/uL (3.29-11.43) 04/28/23 03:49 RBC 4.01 10^6/uL (3.85-5.65) 04/28/23 03:49 Hgb 11.40 g/dL (11.27-16.99) 04/28/23 03:49 Hct 34.7 % (36-47) L 04/28/23 03:49 MCV 86.5 fl (85-98) 04/28/23 03:49 MCH 28.4 pg (27-33) 04/28/23 03:49 MCHC 32.9 g/dL (30-55) 04/28/23 03:49 RDW 13.3 % (12.1-15.1) 04/28/23 03:49 Plt Count 195 10^3/cmm (157-399) D 04/28/23 03:49 MPV 9.7 fL (7.4-10.4) 04/28/23 03:49 Neut % (Auto) 63.6 % 04/28/23 03:49 Lymph % (Auto) 26.7 % 04/28/23 03:49 [place] % (Auto) 8.1 % 04/28/23 03:49 Eos % (Auto) 0.8 % 04/28/23 03:49 Baso % (Auto) 0.5 % 04/28/23 03:49 Neut # (Auto) 5.06 10^3/uL (1.8-7.7) 04/28/23 03:49 Lymph # (Auto) 2.1 10^3/uL (0.8-4.8) 04/28/23 03:49 [place] # (Auto) 0.6 10^3/uL (0.2-0.9) 04/28/23 03:49 Eos # (Auto) 0.1 10^3/uL (0.0-0.8) 04/28/23 03:49 Baso # (Auto) 0.0 10^3/uL (0.0-0.1) 04/28/23 03:49 Nucleated RBC % (auto) 0 % 04/28/23 03:49 Nucleated RBCs # 0.0 /100WBC 04/28/23 03:49 PT 12.00 SECONDS (12.1-14.9) L 04/27/23 01:30 INR 0.86 (0.8-1.2) 04/27/23 01:30 Sodium 139 mmol/L (136-145) 04/28/23 03:49 Potassium 3.5 mmol/L (3.5-5.1) 04/28/23 03:49 Chloride 108 mmol/L (98-107) H 04/28/23 03:49 Carbon Dioxide 24 mmol/L (22-29) 04/28/23 03:49 Anion Gap 10.5 (5-19) 04/28/23 03:49 BUN 4 mg/dL (6-20) L 04/28/23 03:49 Creatinine 0.7 mg/dL (0.5-0.9) 04/28/23 03:49 GFR Calculation 88.6 mL/min (90-130) L 04/28/23 03:49 Glucose 107 mg/dL (65-115) 04/28/23 03:49 POC Glucose 104 mg/dL (70-110) 04/29/23 06:31 Calculated Osmolality 285 mOsm/kg (285-295) 04/28/23 03:49 Calcium 8.1 mg/dL (8.5-10.5) L 04/28/23 03:49 Magnesium 1.9 mg/dL (1.7-2.3) 04/28/23 03:49 Total Bilirubin 0.4 mg/dL (0.15-1.2) 04/28/23 03:49 AST 39 U/L (0-32) H 04/28/23 03:49 ALT 87 U/L (0-33) H 04/28/23 03:49 Alkaline Phosphatase 92 U/L (35-105) 04/28/23 03:49 Troponin T Baseline 6 ng/L (0-10) 04/27/23 01:30 Troponin T 120 Minute 6.00 ng/L (0-10) 04/27/23 03:45 Delta Troponin T 0 ABS# (0-10) 04/27/23 03:45 Troponin T Hi Sens 6Hr 6.00 ng/L (0-10) 04/27/23 07:36 Troponin T Hi Sens 6Hr Delta 0 ng/L (0-12) 04/27/23 07:36 NT-Pro-B Natriuret Pep 36 pg/mL (0-125) 04/27/23 01:30 Total Protein 5.7 g/dL (6.6-8.7) L 04/28/23 03:49 Albumin 3.3 g/dL (3.5-5.2) L 04/28/23 03:49 Globulin 2.4 g/dL (1.3-4.6) 04/28/23 03:49 Lipase > 4040 U/L (13-60) H 04/27/23 01:30 Urine Color Yellow (Yellow) 04/27/23 03:30 Urine Appearance Clear (CLEAR) 04/27/23 03:30 Urine pH 6.5 (5-7) 04/27/23 03:30 Ur Specific [place] 1.015 (1.005-1.030) 04/27/23 03:30 Urine Protein Trace (Negative) 04/27/23 03:30 Urine Glucose (UA) 1+ (Normal) H 04/27/23 03:30 Urine Ketones 1+ (Negative) H 04/27/23 03:30 Urine Blood Neg (Negative) 04/27/23 03:30 Urine Nitrate Negative (Negative) 04/27/23 03:30 Urine Bilirubin Neg (Negative) 04/27/23 03:30 Urine Urobilinogen Neg mg/dL (Negative) 04/27/23 03:30 Ur Leukocyte Esterase Negative (Negative) 04/27/23 03:30 Urine RBC Rare /hpf (0-2) 04/27/23 03:30 Urine WBC Rare /hpf (0-5) 04/27/23 03:30 Ur Squamous Epith Cells 5-10 /hpf (0-5) H 04/27/23 03:30 Amorphous Sediment Not Reportable 04/27/23 03:30 Urine Bacteria Trace /hpf (NONE) 04/27/23 03:30 Urine Opiates Screen Positive ng/mL (Negative) H 04/27/23 03:30 Ur Barbiturates Screen Negative ng/mL (Negative) 04/27/23 03:30 Ur Phencyclidine Scrn Negative ng/mL (Negative) 04/27/23 03:30 Ur Amphetamines Screen Negative ng/mL (Negative) 04/27/23 03:30 U Benzodiazepines Scrn Positive ng/mL (Negative) H 04/27/23 03:30 Urine Cocaine Screen Negative ng/mL (Negative) 04/27/23 03:30 U Marijuana (THC) Screen Negative ng/mL (Negative) 04/27/23 03:30 Vitals Last Vital Signs Temp 97.8 F 04/29/23 07:23 Pulse 60 04/29/23 07:23 Resp 15 04/29/23 07:23 BP 131/73 04/29/23 07:23 Pulse Ox 95 04/29/23 07:23 O2 Del Method Room Air 04/29/23 07:23 Discharge Plan Discharge Patient Disposition: Home Condition: Stable Prescriptions: New morphine 15 mg tablet 15 mg PO BID PRN (Reason: pain) Qty: 10 0RF ondansetron HCl 4 mg tablet 4 mg PO DAILY Qty: 10 0RF Continued acyclovir 400 mg tablet 400 mg PO TID PRN (Reason: fever blister) albuterol sulfate 90 mcg/actuation HFA aerosol inhaler 1 puff inhalation Q4H PRN (Reason: Shortness Of Breath) lisinopril 40 mg tablet 20 mg PO BEDTIME bupropion HCl 150 mg tablet extended release 24 hr See Rx Instructions .ROUTE .COMPLEX Qty: 30 0RF Dose Instruction: TAKE 1 TABLET BY MOUTH EVERY MORNING Rx Instructions: TAKE 1 TABLET BY MOUTH EVERY MORNING Discontinued Ozempic 0.25 mg or 0.5 mg (2 mg/3 mL) Pen Injector 0.5 mg SUBCUT Q7D Discharge Orders: Discharge Order (Routine); Ordered 04/29/23 Ordered By: Mika Lai Referrals: Stefanie Roy APN [Primary Care Provider] - Patient Instructions: Opioid Safety, Pain Management Discharge Attestations Time Spent in Discharge Care*: greater than 30 min Quality Metrics Clinical Quality Measures [ No reported AMI, CVA or VTE this stay] Coding Level of Care Code Acute Code for Chg Fwd Diagnoses Pancreatitis K85.90
[2023-04-29 11:56] LABS: Glucose Point of Care 91 mg/dL (70-110)
[2023-04-29 11:57] VITALS: BP 138/80; PULSE 60; RESP 16; O2SAT 98
== END 2023-04-29 13:05 | disposition home or self-care (01) | DRG 440 ==
LOC: ER 04:04 → MEDSURG 04:39
PROVIDERS: Admitting Provider Internal Medicine; Emergency Provider Emergency Medicine; PCP Nurse Practitioner Family; Visit Provider Internal Medicine
DX: K85.30 Drug induced acute pancreatitis without necrosis or infection (principal); E11.9 Type 2 diabetes mellitus without complications; Z79.85 Long-term (current) use of injectable non-insulin antidiabetic drugs; I10 Essential (primary) hypertension; E86.0 Dehydration; Z87.891 Personal history of nicotine dependence; T50.995A Adverse effect of other drugs, medicaments and biological substances, initial encounter; R94.5 Abnormal results of liver function studies
CPT/HCPCS: 36415; 36416; 71045; 74177; 76705; 80053; 80306; 81001; 82962; 83690; 83735; 83880; 84484; 85025; 85610; 93005; 96372; 96374; 96375; 99285; C9113; J1170; J1630; J1650; J1815; J2270; J2405; J7030; Q9967

== ENCOUNTER → 2023-06-20 08:06 | Outpatient (BNVA) | payer OTHER, SELFPAY | PROVIDERS: PCP Nurse Practitioner Family; Visit Provider Student in an Organized Health Care Education/Training Program | DX: M25.512 Pain in left shoulder (principal); M75.42 Impingement syndrome of left shoulder | CPT/HCPCS: 73030 ==

== ENCOUNTER 2023-07-01 06:00 | Outpatient (RCR) | payer OTHER, SELFPAY | END 2023-07-11 23:59 | disposition home or self-care (01) | LOC: TPT 06:00 | PROVIDERS: Visit Provider Student in an Organized Health Care Education/Training Program | DX: M75.42 Impingement syndrome of left shoulder (principal) | CPT/HCPCS: 97110; 97140; 97162 ==

== ENCOUNTER → 2023-07-16 10:18 | Outpatient (BNVA) | payer OTHER, SELFPAY | PROVIDERS: PCP Nurse Practitioner Family; Visit Provider Nurse Practitioner Family | DX: E11.65 Type 2 diabetes mellitus with hyperglycemia (principal); R93.7 Abnormal findings on diagnostic imaging of other parts of musculoskeletal system; R19.09 Other intra-abdominal and pelvic swelling, mass and lump | CPT/HCPCS: 80053; 80061; 82043; 83036; 84443; 85025 ==

== ENCOUNTER 2023-07-17 12:24 | Outpatient (RCR) | payer OTHER, SELFPAY | END 2023-08-11 23:59 | disposition home or self-care (01) | LOC: TPT 12:24 | PROVIDERS: PCP Nurse Practitioner Family; Visit Provider Student in an Organized Health Care Education/Training Program | DX: M75.42 Impingement syndrome of left shoulder (principal) | CPT/HCPCS: 97110 ==

== ENCOUNTER 2023-08-12 06:00 | Outpatient (RCR) | payer OTHER, SELFPAY | END 2023-08-30 23:59 | disposition home or self-care (01) | LOC: TPT 06:00 | PROVIDERS: PCP Nurse Practitioner Family; Visit Provider Student in an Organized Health Care Education/Training Program | DX: M75.42 Impingement syndrome of left shoulder (principal) | CPT/HCPCS: 97110 ==

== ENCOUNTER 2023-08-20 06:59 | Outpatient (CLI) | payer OTHER, SELFPAY ==
--- NOTE | 2023-08-20 07:15 | MR_ITS ---
WS: [id number] MRI PELVIS WITH AND WITHOUT CONTRAST. COMPARISON: CT 04/27/2023 Multiplanar, multisequence imaging is performed with and without contrast. Multiplanar imaging. History: Status post hysterectomy. Hyperdense nodule is noted near the LEFT cervical cuff. Seen on pr ior CT. Reidentified is the 4 mm nodule described by recent CT adjacent to the LEFT cervical cuff. This is of increased signal on the T1 and T2 sequences without enhancement. I suspect this is probably a small complex cyst such as a nabothian cyst. Not increased in size since the prior study. This may be a hyp erdense cyst and not actually enhancing as noted on the CT as a noncontrast study was not performed. Prior hysterectomy. There is no ascites or adenopathy within the pelvis. The visualized urinary bladd er is normal. The visualized soft tissues are otherwise normal muscle. Normal sacrum. Diffusion imagi ng is negative. IMPRESSION: 1. No solid enhancing masses within the pelvis. 2. Recently described hyperdense nodule associated with the LEFT cervical cuff does not enhance. Susp ect this is a complex nabothian cyst or a small complex cyst. No enhancement or interval change since 04/27/2023. 3. No ascites or adenopathy. 4. Prior hysterectomy.
[2023-08-20] MEDS: gadobenate dimeglumine 20 mL vial IV (09:16)
--- NOTE | 2023-08-20 09:30 | NM_ITS ---
WS: [id number] NUCLEAR MEDICINE BONE SCAN Radiopharmaceutical: 26.3 Tc-99m MDP mCi IV Injection site: Antecubital Postinjection imaging delay: 1 hr CLINICAL INFORMATION: R93.7 - Abnormal findings on diagnostic imaging of other ... COMPARISON: CT abdomen pelvis 04/27/2023 FINDINGS: Bone lesions: There are no osseous lesions suspicious for metastatic disease. No suspicious foci of r adiotracer uptake to correlate with the vague lucency RIGHT L5 described on the prior CT abdomen pelv is. Soft tissue contours: Normal. Kidneys: Normal. Other findings: None. IMPRESSION: No evidence of osseous metastatic disease.
== END 2023-08-20 07:00 | disposition home or self-care (01) ==
LOC: RAD 07:01
PROVIDERS: PCP Nurse Practitioner Family; Visit Provider Nurse Practitioner Family
DX: R93.7 Abnormal findings on diagnostic imaging of other parts of musculoskeletal system (principal); R19.09 Other intra-abdominal and pelvic swelling, mass and lump
CPT/HCPCS: 72197; 78306; A9561; A9577

== ENCOUNTER → 2024-01-29 11:26 | Outpatient (BNVA) | payer OTHER, SELFPAY | PROVIDERS: PCP Nurse Practitioner Family; Visit Provider Nurse Practitioner Family | DX: E11.65 Type 2 diabetes mellitus with hyperglycemia (principal); I10 Essential (primary) hypertension; B00.9 Herpesviral infection, unspecified | CPT/HCPCS: 80053; 80061; 82607; 83036; 84443; 85025 ==

== ENCOUNTER 2024-02-24 22:56 | Inpatient (IN) | payer OTHER, SELFPAY ==
[2024-02-24 22:59] VITALS: BP 154/89; PULSE 72; RESP 18; TEMP 36.6; O2SAT 100; BMI 25.7
[2024-02-24 23:06] VITALS: BP 154/89; PULSE 57; RESP 24; O2SAT 100
--- NOTE | 2024-02-24 23:13 | ED_ITS ---
HPI - Abdominal Pain 2 General: Chief Complaint: Abdominal Pain Stated Complaint: abd pain Time Seen by Provider: 02/24/24 22:59 History of Present Illness: Patient brought in by EMS for abdominal pain, patient was given fentanyl on the way here so she is pretty sedate. Failure said she has a history of pancreatitis with her most recent bout about a year ago which was severe other night she may have had about a couple weeks ago that was more mild. Patient went [facility] the [facility] and ate a hamburger about an hour after that she started having a severe upper abdominal pain. Review of Systems 2 General: Reports: 10 or more systems reviewed and unremarkable except in HPI and below PFSH ED 2 PFSH: Medical History Pancreatitis Palpitations Leg swelling Bicuspid aortic valve Benign essential HTN Herpes Type 2 diabetes mellitus Surgical History S/P hysterectomy Hx of breast reduction, elective Family History Mother Cancer THYROID Diabetes CAD (coronary artery disease) Stroke Brother CAD (coronary artery disease) Diabetes Denies family history of Clotting disorder Dementia Chronic kidney disease (CKD) Suicide Anesthesia complication Bleeding disorder Lung disease Social History Smoking and tobacco/nicotine status: former use of tobacco/nicotine Second hand smoke exposure: No Alcohol intake: current Alcohol intake frequency: holidays/special occasions only Substance/Drug Use: never Household members: spouse Marital status: Physical Exam 2 Const: COMMON NORMALS: no acute distress, average body habitus, no limitations, healthy appearing, alert and well nourished HENMT: COMMON NORMALS: normocephalic, atraumatic, hearing grossly normal bilaterally, external ears normal and Normal nasal mucous membranes and turbinates present HEAD & SCALP: normocephalic and atraumatic NOSE: Normal nasal mucous membranes and turbinates present EXTERNAL EAR: Yes external ears normal Neck/C-Spine: COMMON NORMALS: no JVD Chest: COMMONS NORMALS: normal inspection of the chest and normal palpation of entire chest wall Resp: COMMON NORMALS: normal respiratory effort, No retractions, No use of accessory muscles and clear to auscultation bilaterally AUSCULTATION: clear to auscultation bilaterally Cardio: COMMON NORMALS: no JVD, regular rate, regular rhythm, S1 normal heart sound present, S2 normal heart sound present, No gallops present (Cardio), No clicks present (Cardio), No murmurs present (Cardio) and No rub (Cardio) R ATE: regular rate RHYTHM: regular rhythm HEART SOUNDS: S1 normal heart sound present and S2 normal heart sound present GI: COMMON NORMALS: Normal to inspection, nondistended, normoactive bowel sounds present, Soft to palpation, No hepatosplenomegaly present and no masses; negative for non-tender (Moderate tenderness to epigastric/right upper quadrant area) PALPATION: Yes Soft to palpation and Yes No hepatosplenomegaly present Neuro: SENSORIUM/ORIENTATION: Yes alert Course 2 Vital Signs: Vital signs: Vital Signs Temperature 97.9 F 02/24/24 22:59 Pulse Rate 58 L 02/25/24 02:30 Respiratory Rate 18 02/25/24 02:30 Blood Pressure 117/69 02/25/24 02:30 Pulse Oximetry 95 02/25/24 02:30 Oxygen Delivery Me thod Nasal Cannula 02/25/24 01:12 Oxygen Flow Rate 3 02/25/24 01:12 MDM - Abdominal Pain Medical Decision Making Presents to the ER with upper abdominal pain, lab work was obtained as well as abdomen pelvis CT scan, right upper quadrant ultrasound is pending, lipase was elevated at approximately 6200, CT scan showed mild peripancreatic edema consistent with pancreatitis, Dr. Moran was consulted we will place patient in [facility]. Differential Diagnosis Likely abdominal pain Lab Data I reviewed the patient's lab results. 02/24/24 23:07 02/24/24 23:07 Labs/Radiology: Radiology Impressions Abdomen/Pelvis CT 02/25/24 00:32 IMPRESSION: 1. Mild peripancreatic edema. Correlate with pancreatitis. 2. Nonspecific periportal edema and gallbladder wall thickening may be reactive to pancreatitis. 3. Left adnexal cystic lesions, not present on prior CT and incompletely imaged on recent MR. Recommend further evaluation with nonemergent pelvic ultrasound. COMMENTS: Consistent with the [employer]'s Incidental Findings Committee white paper (J Am Neal Radiol 2018): Any incidental renal lesion less than 1 cm or classified as too small to characterize, or any incidental cystic renal lesion characterized as simple-appearing, is likely benign. No follow-up imaging is recommended for these lesions per consensus recommendations based on imaging criteria. Laboratory Results WBC 9.05 10^3/uL (3.29-11.43) 02/24/24 23:07 RBC 4.55 10^6/uL (3.85-5.65) 02/24/24 23:07 Hgb 13.20 g/dL (11.27-16.99) 02/24/24 23:07 Hct 40.1 % (36-47) 02/24/24 23:07 MCV 88.1 fl (85-98) 02/24/24 23:07 MCH 29.0 pg (27-33) 02/24/24 23:07 MCHC 32.9 g/dL (30-55) 02/24/24 23:07 RDW 13.8 % (12.1-15.1) 02/24/24 23:07 Plt Count 261 10^3/cmm (157-399) 02/24/24 23:07 MPV 10.4 fL (7.4-10.4) 02/24/24 23:07 Neut % (Auto) 55.3 % 02/24/24 23:07 Lymph % (Auto) 33.4 % 02/24/24 23:07 Anson % (Auto) 8.8 % 02/24/24 23:07 Eos % (Auto) 1.5 % 02/24/24 23:07 Baso % (Auto) 0.7 % 02/24/24 23:07 Neut # (Auto) 5.00 10^3/uL (1.8-7.7) 02/24/24 23:07 Lymph # (Auto) 3.0 10^3/uL (0.8-4.8) 02/24/24 23:07 Anson # (Auto) 0.8 10^3/uL (0.2-0.9) 02/24/24 23:07 Eos # (Auto) 0.1 10^3/uL (0.0-0.8) 02/24/24 23:07 Baso # (Auto) 0.1 10^3/uL (0.0-0.1) 02/24/24 23:07 Nucleated RBC % (auto) 0 % 02/24/24 23:07 Nucleated RBCs # 0.0 /100WBC 02/24/24 23:07 Sodium 138 mmol/L (136-145) 02/24/24 23:07 Potassium 3.7 mmol/L (3.5-5.1) 02/24/24 23:07 Chloride 102 mmol/L (98-107) 02/24/24 23:07 Carbon Dioxide 24 mmol/L (22-29) 02/24/24 23:07 Anion Gap 15.7 (5-19) 02/24/24 23:07 BUN 14 mg/dL (6-20) 02/24/24 23:07 Creatinine 0.7 mg/dL (0.5-0.9) 02/24/24 23:07 GFR Calculation 88.2 mL/min (90-130) L 02/24/24 23:07 Glucose 105 mg/dL (65-115) 02/24/24 23:07 Calculated Osmolality 287 mOsm/kg (285-295) 02/24/24 23:07 Calcium 9.1 mg/dL (8.5-10.5) 02/24/24 23:07 Total Bilirubin 0.4 mg/dL (0.15-1.2) 02/24/24 23:07 AST 29 U/L (0-32) 02/24/24 23:07 ALT 24 U/L (0-33) 02/24/24 23:07 Alkaline Phosphatase 145 U/L (35-105) H 02/24/24 23:07 Total Protein 6.9 g/dL (6.6-8.7) 02/24/24 23:07 Albumin 4.0 g/dL (3.5-5.2) 02/24/24 23:07 Globulin 2.9 g/dL (1.3-4.6) 02/24/24 23:07 Triglycerides 52 mg/dL (0-150) 02/24/24 23:07 Lipase 6204 U/L (13-60) H 02/24/24 23:07 All radiology interpretation(s) finalized by discharge Discharge Plan Discharge Patient Disposition: Admitted As Inpatient Clinical Impression: Pancreatitis Qualifiers: Chronicity: acute Pancreatitis type: unspecified pancreatitis type Acute pancreatitis complication: no infection or necrosis Qualified Code(s): K85.90 - Acute pancreatitis without necrosis or infection, unspecified Condition: Stable Coding Level of Care Code ED Sheet Roller Operator for Chg Fwd
[2024-02-24 23:24] LABS: Basophils # 0.1 10^3/uL (0.0-0.1); Basophils % 0.7 %; Eosinophils # 0.1 10^3/uL (0.0-0.8); Eosinophils % 1.5 %; Hematocrit 40.1 % (36-47); Lymphocytes % 33.4 %; Mean Corpuscular HGB Conc 32.9 g/dL (30-55); Mean Corpuscular Volume 88.1 fl (85-98); Mean Platelet Volume 10.4 fL (7.4-10.4); Monocytes # 0.8 10^3/uL (0.2-0.9); Monocytes % 8.8 %; Neutrophils % 55.3 %; Nucleated Red Blood Cells % 0 %; Platelet Count 261 10^3/cmm (157-399); Red Blood Count 4.55 10^6/uL (3.85-5.65); Red Cell Distribution Width 13.8 % (12.1-15.1); White Blood Count 9.05 10^3/uL (3.29-11.43)
[2024-02-24 23:33] LABS: Alanine Aminotransferase 24 U/L (0-33); Alkaline Phosphatase 145 U/L (35-105); Anion Gap 15.7 (5-19); Aspartate Amino Transferase 29 U/L (0-32); Blood Urea Nitrogen 14 mg/dL (6-20); Calcium 9.1 mg/dL (8.5-10.5); Carbon Dioxide 24 mmol/L (22-29); Chloride 102 mmol/L (98-107); Globulin 2.9 g/dL (1.3-4.6); Glomerular Filtration Rate 88.2 mL/min (90-130); Glucose 105 mg/dL (65-115); Osmolality Calculated 287 mOsm/kg (285-295); Potassium 3.7 mmol/L (3.5-5.1); Sodium 138 mmol/L (136-145); Total Bilirubin 0.4 mg/dL (0.15-1.2); Total Protein 6.9 g/dL (6.6-8.7)
[2024-02-25] VITALS (17 sets, daily range): BP systolic 64–133; BP diastolic 54–115; PULSE 47–69; RESP 12–24; TEMP 36.4–36.6; O2SAT 95–100; BMI 21.4
[2024-02-25 00:23] LABS: Lipase 6204 U/L (13-60)
--- NOTE | 2024-02-25 00:32 | CTR_ITS ---
PROCEDURE INFORMATION: Exam: CT Abdomen And Pelvis With Contrast Exam date and time: 02/25/2024 12:55 AM Age: 53 years old Clinical indication: Nausea and vomiting; Prior surgery; Surgery date: 6+ months; Surgery type: Hyst; Additional info: Elevated lipase, n/v, HX of pancreatitis TECHNIQUE: Imaging protocol: Computed tomography of the abdomen and pelvis with contrast. Radiation optimization: All CT scans at this facility use at least one of these dose optimization techniques: automated exposure control; mA and/or kV adjustment per patient size (includes targeted exams where dose is matched to clinical indication); or iterative reconstruction. Contrast material: OMNI 350; Contrast volume: 100 ml; Contrast route: INTRAVENOUS (IV); COMPARISON: MR pelvis wo/w con [id number] 08/20/2023 7:59 AM RADIATION DOSE METRICS: Total DLP (mGy-cm): 403.9 FINDINGS: Lungs: Mild right posterior lower lobe atelectasis. Heart: Heart size is within normal limits. There is no pericardial effusion or pericardial thickening. Liver: Mild periportal edema. No hepatic masses are identified. Gallbladder and biliary ducts: Nonspecific mild diffuse gallbladder wall thickening. No radiopaque calcifications. No pericholecystic inflammatory changes. Pancreas: Mild peripancreatic edema. Spleen: The spleen is normal. Adrenal glands: The adrenal glands are normal. Kidneys and ureters: There is normal enhancement of the kidneys. No renal calcifications are identified. There is no hydronephrosis. There are bilateral subcentimeter renal low-density lesions which are too small for accurate characterization, likely representing simple cysts. Stomach and bowel: There is no large or small bowel obstruction. There is no evidence of bowel wall thickening. Appendix: A normal appendix is identified. Intraperitoneal space: No inflammatory changes are identified. There is no free fluid or fluid collection seen. There is no pneumoperitoneum. Vasculature: The aorta is normal in course and caliber. No significant atherosclerotic calcifications are present. The aorta is normal in course and caliber. No significant atherosclerotic calcifications are present. Lymph nodes: No enlarged lymph nodes are identified. Urinary bladder: The bladder is unremarkable. Reproductive: The uterus is absent. Stable 8 mm hyperdensity in the region of the left vaginal cuff. Poorly evaluated cystic lesions in the left adnexa , the larger measuring up to 2.2 cm. Questionable internal enhancement in the larger component. This structure is not present on prior CT from 04/27/2023. These appear to represent simple cysts on recent MR though are incompletely imaged. Bones/joints: No acute osseous abnormalities are seen. Soft tissues: Asymmetric increased soft tissue density in the left lateral inferior breast, likely stable compared to 2022. Correlate with routine mammography and ultrasound if indicated. The soft tissues are within normal limits. CT/CT abdomen pelvis w con* [id number] IMPRESSION: 1. Mild peripancreatic edema. Correlate with pancreatitis. 2. Nonspecific periportal edema and gallbladder wall thickening may be reactive to pancreatitis. 3. Left adnexal cystic lesions, not present on prior CT and incompletely imaged on recent MR. Recommend further evaluation with nonemergent pelvic ultrasound. COMMENTS: Consistent with the [employer]'s Incidental Findings Committee white paper (J Am Neal Radiol 2018): Any incidental renal lesion less than 1 cm or classified as too small to characterize, or any incidental cystic renal lesion characterized as simple-appearing, is likely benign. No follow-up imaging is recommended for these lesions per consensus recommendations based on imaging criteria.
[2024-02-25] MEDS: iohexol 350 mg/mL 500 mL Btl (per mL) IV (00:58)
[2024-02-25 01:03] LABS: Triglycerides 52 mg/dL (0-150)
[2024-02-25] MEDS: ondansetron 2 mg/ML SDV 2 mL 4 MG IVP ×3 (02:13→21:34)
[2024-02-25] MEDS: morphine 4 mg/mL SDV 1 mL IVP (02:19)
--- NOTE | 2024-02-25 03:20 | USR_ITS ---
PROCEDURE INFORMATION: Exam: US Abdomen, Limited; Right Upper Quadrant Exam date and time: 02/25/2024 3:32 AM Age: 53 years old Clinical indication: Abdominal pain; Epigastric; ; Patient HX: Past history of pancreatitis; Additional info: Ruq US, pancreatitis, posible cholycystitis on CT TECHNIQUE: Imaging protocol: Real time ultrasound of the abdomen with image documentation. Limited exam focused on the right upper quadrant. COMPARISON: US gall bladder [id number] 04/27/2023 1:12 PM FINDINGS: Liver: Normal. No masses. Patent main portal vein with normal direction of flow. Gallbladder: Distended gallbladder containing stones. Mild gallbladder wall thickening measuring 0.4 cm. Trace pericholecystic fluid seen. Equivocal sonographic Conway's sign, patient medicated. Biliary ducts: Normal. No stones. No dilation. Pancreas: Visualized pancreas is unremarkable. Right kidney: Normal. No mass. No hydronephrosis. US/US abdomen limited [id number] IMPRESSION: Imaging findings concerning for acute calculus cholecystitis. Further evaluation with HIDA scan should be considered in the adequate clinical setting.
[2024-02-25 03:44] LABS: Urine Appearance Slightly Cloudy (CLEAR); Urine Color Yellow (Yellow)
[2024-02-25 03:45] LABS: Add Urine Culture? No; Add Urine Microscopic? YES; Amorphous Sediment Urine 2+ /hpf; Bacteria Urine 1+ /hpf; Bilirubin Urine Neg (Negative); Blood Urine Trace (Negative); Glucose Urine UA Norm (Normal); Ketones Urine 1+ (Negative); Leukocyte Esterase Urine Negative (Negative); Nitrate Urine Negative (Negative); Protein Urine Trace (Negative); RBC Urine 0-4 /hpf (0-2); Specific Gravity, Urine 1.005 (1.005-1.030); Squamous Epithelial Cell Urine 0-4 /hpf (0-5); Urobilinogen Urine 4 mg/dL (Negative); pH Urine 7 (5-7)
--- NOTE | 2024-02-25 04:22 | PM.HP ---
Providers/Chief Complaint Admitting Physician: Karolina Moran MD Primary Care Provider: MARIANNA Jaquez Chief Complaint: abd pain History of Present Illness Yesenia Patel is a 53 year old female With past medical history of HTN, type 2 diabetes mellitus previously on Ozempic and had an episode of pancreatitis few months ago presented to the hospital today with abdominal pain. She states she had pain a few days ago but it was mild however today after eating a hamburger she had excruciating abdominal pain which brought her to the ER. Significant other at bedside who provides most of the history. Patient was brought in via EMS and was given fentanyl and route. She is quite drowsy however able to answer some questions. Says she is comfortable at this time. Patient laying in position holding her abdomen. She was on Ozempic in the past however that was stopped and she was switched to Mounjaro. Patient has been on Mounjaro for the last 6 months or so. Labs mainly unremarkable, lipase 6200 CT abdomen pelvis shows mild peripancreatic edema, correlate with pancreatitis. Nonspecific periportal edema and gallbladder wall thickening may be reactive to pancreatitis. Left adnexal cystic lesions not present on prior CT and incompletely imaged on recent MR. Recommend further evaluation with nonemergent pelvic ultrasound. Medications/Allergies Home Medications Medication Instructions Recorded Confirmed Last Taken Type bupropion HCl 150 mg 24 hr tablet, See Rx Instructions .Route 11/25/20 01/29/24 04/26/23 21:00 Rx extended release .COMPLEX #30 tabs lisinopril 40 mg tablet 20 mg PO BEDTIME 05/08/22 01/29/24 04/26/23 21:00 History albuterol sulfate 90 mcg/actuation 2 puff inhalation Q6H PRN 11/19/23 01/29/24 Unknown Rx aerosol inhaler (Ventolin HFA) shortness of breath or wheezing #8.5 grams tirzepatide 2.5 mg/0.5 mL See Rx Instructions .Route 12/04/23 01/29/24 Unknown Rx subcutaneous pen injector .COMPLEX #2 mL acyclovir 400 mg tablet See Rx Instructions .Route 01/29/24 01/29/24 Unknown Rx .COMPLEX #30 tabs Allergies Allergy/AdvReac Type Severity Reaction Status Date / Time hydromorphone [From Dilaudid] Allergy Unknown Verified 01/29/24 10:59 codeine AdvReac Severe NAUSEA Verified 01/29/24 10:59 PFSH Acute PFSH: Medical History Pancreatitis Palpitations Leg swelling Bicuspid aortic valve Benign essential HTN Herpes Type 2 diabetes mellitus Surgical History S/P hysterectomy Hx of breast reduction, elective Family History Mother Cancer THYROID Diabetes CAD (coronary artery disease) Stroke Brother CAD (coronary artery disease) Diabetes Denies family history of Clotting disorder Dementia Chronic kidney disease (CKD) Suicide Anesthesia complication Bleeding disorder Lung disease Social History Smoking and tobacco/nicotine status: former use of tobacco/nicotine Second hand smoke exposure: No Alcohol intake: current Alcohol intake frequency: holidays/special occasions only Substance/Drug Use: never Household members: spouse Marital status: Vitals/I&O/Wt Last Vital Signs Temp 97.9 F 02/24/24 22:59 Pulse 53 L 02/25/24 03:00 Resp 12 02/25/24 03:00 BP 131/72 02/25/24 03:00 Pulse Ox 96 02/25/24 03:00 O2 Del Method Nasal Cannula 02/25/24 01:12 O2 Flow Rate 3 02/25/24 01:12 Weight last 48 hrs Weight 68.039 kg Physical Exam Narrative: General: Alert oriented however unable to answer many questions as she is very drowsy secondary to fentanyl that was given earlier. She is able to answer some questions. Most of history obtained from partner at bedside. patient seen laying in position in bed, no acute respiratory distress HEENT: Normocephalic, atraumatic, EOMI, Cardio: Regular rate rhythm, normal S1-S2 Respiratory: Clear to auscultation bilaterally no wheezes no rhonchi. GI: Abdomen soft, nontender, nondistended, bowel sounds + Extremities: No edema Data 02/24/24 23:07 02/24/24 23:07 A&P Assessment and plan (1) Hypertension: Qualifiers: Hypertension type: unspecified Qualified Code(s): I10 - Essential (primary) hypertension (2) Benign essential HTN: (3) Type 2 diabetes mellitus: Qualifiers: Diabetes mellitus intermediate frame tender insulin use: without retirement use Diabetes mellitus complication status: with hyperglycemia Qualified Code(s): E11.65 - Type 2 diabetes mellitus with hyperglycemia (4) Pancreatitis: Qualifiers: Acute pancreatitis complication: no infection or necrosis Chronicity: acute Pancreatitis type: unspecified pancreatitis type Qualified Code(s): K85.90 - Acute pancreatitis without necrosis or infection, unspecified Plan #Acute pancreatitis #Previously on Ozempic and now on Mounjaro. This is patient's second occurrence. #Hypertension ? CT abdomen pelvis reviewed evidence of pancreatitis, mild gallbladder wall thickening present, no gallstones seen ? Check gallbladder ultrasound ? Will empirically place on Zosyn at this time ? Normal saline 150 cc/h ? Protonix 40 IV daily ? Heparin SQ twice daily ? Wean off oxygen as able. Patient on 2 L right now saturating 100% ? UA shows 1+ bacteria. ? Strict n.p.o. at this time ? Morphine 4 mg every 4 hours as needed. Patient allergic to Dilaudid. - Will advise patient to stop Mounjaro and not to take medications of same class again. -Accu-Cheks every 6 hours. Full code DVT prophylaxis: Heparin SQ twice daily Attestations Medical Necessity Statement*: Greater than 2 midnight stay for management of acute pancreatitis Diagnoses Hypertension, unspecified type I10 Hypertension type: unspecified Benign essential HTN I10 Type 2 diabetes mellitus with hyperglycemia, without long-term current use of insulin E11.65 Diabetes mellitus intermediate frame tender insulin use: without intermediate frame tender use Diabetes mellitus complication status: with hyperglycemia Pancreatitis K85.90 Acute pancreatitis complication: no infection or necrosis Chronicity: acute Pancreatitis type: unspecified pancreatitis type
[2024-02-25] MEDS: sodium chloride 0.9% 1,000 ML 150 ML IV ×2 (04:35→15:55)
[2024-02-25] MEDS: pantoprazole 40 mg SDV IVP (04:36)
[2024-02-25] MEDS: heparin 5,000 unit/mL INJ 1 mL 5000 UNIT SUBCUT ×2 (04:45→15:57)
[2024-02-25 05:11] LABS: Cholesterol 142 mg/dL (0-200); HDL Cholesterol 79 mg/dL (60-100); LDL Cholesterol Calculated 57 mg/dL (50-129); Lactic Sepsis W/Reflex 0.7 mmol/L (0.5-2.2); Triglycerides 29 mg/dL (0-150); VLDL Cholestrol Calculation 6 mg/dL (0-30)
[2024-02-25 05:18] LABS: Procalcitonin 0.04 ng/mL (0-0.5)
[2024-02-25] MEDS: piperacillin-tazobactam 3.375 GM in sodium chloride 0.9% (plus) 50 ML IV ×2 (07:48→15:57)
[2024-02-25] MEDS: morphine 4 mg/mL SDV 1 mL 2 MG IVP ×3 (07:55→17:14)
[2024-02-25 08:00] LABS: Glucose Point of Care 119 mg/dL (70-110)
--- NOTE | 2024-02-25 16:25 | P.CONIM_ITS ---
Providers/Reason For Consult 2 Consulting Physician/Specialty*: Dr. Prabhakar Vazquez, DO/General surgery Reason for Consult*: Acute calculus cholecystitis and gallstone pancreatitis Attending Physician: Everette Camilo MD Primary Care Provider: MARIANNA Jaquez History of Present Illness History of Present Illness Yesenia Patel is a 53 year old female in the hospital with a 1 week history of epigastric and right upper quadrant abdominal pain radiating to her back. Pain is sharp and constant. Patient makes pain worse. Nothing seems to make the pain better. She does have a history of pancreatitis in the past which was attributed to medications. She reports that she drinks alcohol socially. Denies any nausea or emesis. Denies any diarrhea, constipation, hematochezia and/or melena. Review of Systems 2 General: Reports: 10 or more systems reviewed and unremarkable except in HPI and below Medications/Allergies Home Medications Medication Instructions Recorded Confirmed Last Taken Type albuterol sulfate 90 mcg/actuation 2 puff inhalation Q6H PRN 11/19/23 02/25/24 Unknown Rx aerosol inhaler (Ventolin HFA) shortness of breath or wheezing #8.5 grams acyclovir 400 mg tablet 400 mg PO TID 02/25/24 02/25/24 Unknown History bupropion HCl 150 mg 24 hr tablet, 150 mg PO QAM 02/25/24 02/25/24 02/23/24 History extended release lisinopril 20 mg tablet 20 mg PO DAILY PRN DIRECTED 02/25/24 02/25/24 Unknown History tirzepatide 2.5 mg/0.5 mL 2.5 mg SUBCUT Q7D 02/25/24 02/25/24 02/17/24 History subcutaneous pen injector Allergies Allergy/AdvReac Type Severity Reaction Status Date / Time hydromorphone [From Dilaudid] Allergy Unknown Verified 01/29/24 10:59 codeine AdvReac Severe NAUSEA Verified 01/29/24 10:59 Current Medications Generic Name Dose Route Start Last Admin Trade Name Freq PRN Reason Stop Dose Admin Acetaminophen 650 mg 02/25/24 04:16 02/27/24 04:37 Acetaminophen 325 Mg Tablet PO 650 mg Q6H PRN Administration Mild/Mod Pain Or Temp >/= 101 Heparin Sodium (Porcine) 5,000 unit 02/25/24 04:30 02/27/24 04:37 Heparin 5,000 Unit/Ml Inj 1 Ml SUBCUT 5,000 unit Q12H JESSI Administration Sodium Chloride 1,000 mls @ 100 mls/hr 02/25/24 04:30 02/27/24 05:34 Sodium Chloride 0.9% IV 100 mls/hr .Q10H JESSI Administration Piperacillin Sod/Tazobactam 50 mls @ 12.5 mls/hr 02/25/24 07:30 02/27/24 03:34 Sod 3.375 gm/ Sodium Chloride IV Infused Q8H JESSI Infusion Protocol Morphine Sulfate 2 mg 02/25/24 07:05 02/27/24 04:44 Morphine 4 Mg/Ml Sdv 1 Ml IVP 2 mg Q4H PRN Administration SEVERE PAIN Ondansetron HCl 4 mg 02/25/24 04:16 02/27/24 04:47 Ondansetron 2 Mg/Ml Sdv 2 Ml IVP 4 mg Q8H PRN Administration vomiting, or N/V if npo Pantoprazole Sodium 40 mg 02/25/24 04:30 02/27/24 04:37 Pantoprazole 40 Mg Sdv IVP 40 mg Q24H JESSI Administration PFSH Acute 2 PFSH: Medical History Pancreatitis Palpitations Leg swelling Bicuspid aortic valve Benign essential HTN Herpes Type 2 diabetes mellitus Surgical History S/P hysterectomy Hx of breast reduction, elective Family History Mother Cancer THYROID Diabetes CAD (coronary artery disease) Stroke Brother CAD (coronary artery disease) Diabetes Denies family history of Clotting disorder Dementia Chronic kidney disease (CKD) Suicide Anesthesia complication Bleeding disorder Lung disease Social History Smoking and tobacco/nicotine status: former use of tobacco/nicotine Second hand smoke exposure: No Alcohol intake: current Alcohol intake frequency: holidays/special occasions only Substance/Drug Use: never Household members: spouse Marital status: Vitals/I&O/Wt Last Vital Signs Temp 98.0 F 02/27/24 04:00 Pulse 55 L 02/27/24 06:00 Resp 16 02/27/24 04:44 BP 114/67 02/27/24 04:00 Pulse Ox 97 02/27/24 04:44 O2 Del Method Room Air 02/27/24 04:00 O2 Flow Rate 3 02/25/24 01:12 02/26/24 02/26/24 02/27/24 14:59 22:59 06:59 Intake Total 853.333 / 564.141 8630.000 / 2143.333 995 / 3138.333 Balance 853.333 / 215.911 8712.000 / 2143.333 995 / 3138.333 Weight last 48 hrs Weight 125 lb Weight 151 lb 6 oz Weight 125 lb Physical Exam 2 Narrative: General : Patient is well developed , no acute distress, oriented x3 Head : Normal cephalic, a-traumatic. Ears : Pinnae and external canal are normal. Hearing is normal. Eyes : PERRLA, Sclera and injection are normal. No conjunctival discharge. Nose : Mucous membranes are without erythema. Throat : buccal mucosa is normal, gums are without significant recession or hypertrophy. Lungs : Equal chest rise bilaterally, no use of accessory muscles, trachea is midline. Cor : Rate and rhythm are normal. Abdomen : Soft, ND, tender over epigastrium and right upper quadrant, negative Conway's, no g/r/m Extremities : No edema, no cyanosis or clubbing, dorsalis pedis pulses are present bilaterally, non-tender to palpation of calves. Upper extremities are normal bilaterally. Back : non-tender to palpation, no CVA tenderness. Neuro : CN II - XII intact, Upper and lower extremities have equal and full strength Data 02/27/24 04:23 02/27/24 04:23 A&P Assessment and plan (1) Acute calculous cholecystitis: (2) Gallstone pancreatitis: Plan IV fluids N.p.o. Plan is to keep patient n.p.o. today and advance her to clear liquids tomorrow if her pain improves. Hopefully her pancreatitis will cool down a little bit and allow us to perform laparoscopic cholecystectomy on Laparoscopic cholecystectomy The risks and benefits of the procedure, including but not limited to, bleeding, infection, scar, numbness, pain, damage to surrounding structures, damage to common bile duct requiring additional surgery, conversion to an open procedure, were explained to the patient. He is understanding of the risks and wishes to proceed. Medical management per hospitalist Coding Level of Care Code 36184 Diagnoses Acute calculous cholecystitis K80.00 Gallstone pancreatitis K85.10
[2024-02-25 17:48] LABS: Glucose Point of Care 85 mg/dL (70-110)
--- NOTE | 2024-02-25 19:08 | P.PN_ITS ---
Subjective 2 Subjective: Patient was seen this morning, she continues to complain of abdominal pain, feels nauseous, no lightheadedness, no dizziness, she tells me that she last used Mounjaro about 2 weeks ago, but last night she did have a hamburger, that brought on her symptomatology Vitals/I&O/Wt Last Vital Signs Temp 97.5 F L 02/25/24 15:22 Pulse 47 L 02/25/24 17:22 Resp 16 02/25/24 17:14 BP 105/64 02/25/24 17:22 Pulse Ox 97 02/25/24 17:22 O2 Del Method Room Air 02/25/24 17:22 O2 Flow Rate 3 02/25/24 01:12 02/25/24 02/25/24 02/25/24 06:59 14:59 22:59 Intake Total 1050 / 1050 Balance 1050 / 1050 Weight last 48 hrs Weight 56.699 kg Weight 68.039 kg Physical Exam 2 Const: COMMON NORMALS: no acute distress and patient oriented x3 Resp: COMMON NORMALS: normal respiratory effort, No retractions, No use of accessory muscles and clear to auscultation bilaterally AUSCULTATION: clear to auscultation bilaterally Cardio: COMMON NORMALS: regular rate, regular rhythm, S1 normal heart sound present and S2 normal heart sound present RATE: regular rate RHYTHM: r egular rhythm HEART SOUNDS: S1 normal heart sound present and S2 normal heart sound present GI: OTHER: Abdomen soft, slightly distended, no guarding, no rebound, no rigidity, does have diffuse tenderness Extremity: COMMON NORMALS: no pedal edema Neuro: COMMON NORMALS: patient oriented x3 Psych: COMMON NORMALS: mental status grossly normal Data 02/24/24 23:07 02/24/24 23:07 A&P Assessment and plan (1) Hypertension: Qualifiers: Hypertension type: unspecified Qualified Code(s): I10 - Essential (primary) hypertension (2) Benign essential HTN: (3) Type 2 diabetes mellitus: Qualifiers: Diabetes mellitus manager long term care insulin use: without care home use Diabetes mellitus complication status: with hyperglycemia Qualified Code(s): E11.65 - Type 2 diabetes mellitus with hyperglycemia (4) Pancreatitis: Qualifiers: Acute pancreatitis complication: no infection or necrosis Chronicity: a cute Pancreatitis type: unspecified pancreatitis type Qualified Code(s): K 85.90 - Acute pancreatitis without necrosis or infection, unspecified Plan #Acute pancreatitis #Previously on Ozempic and now on Mounjaro. #Hypertension # Suspect gallstone pancreatitis, given ultrasound findings ? CT abdomen pelvis reviewed evidence of pancreatitis, mild gallbladder wall thickening present, no gallstones seen ? Check gallbladder ultrasound US/US abdomen limited [id number] IMPRESSION: Imaging findings concerning for acute calculus cholecystitis. Further evaluation with HIDA scan should be considered in the adequate clinical setting. ? Will empirically place on Zosyn at this time ? Normal saline 150 cc/h ? Protonix 40 IV daily ? Heparin SQ twice daily ? Wean off oxygen as able. Patient on 2 L right now saturating 100% ? UA shows 1+ bacteria. ? Strict n.p.o. at this time ? Morphine 4 mg every 4 hours as needed. Patient allergic to Dilaudid. - Will advise patient to stop Mounjaro and not to take medications of same class again. -Accu-Cheks every 6 hours. Full code DVT prophylaxis: Heparin SQ twice daily Plan for today, concern for gallstone pancreatitis, spoke to general surgery, continue IV fluids, continue broad-spectrum antibiotic therapy Attestations 2 Medical Necessity Statement*: Patient requires hospitalization for pancreatitis, concerns for gallstone pancreatitis, on IV antibiotics, IV fluids, pain control, general surgery consultation, spoke to general surgery spoke to patient spoke to nursing staff Diagnoses Hypertension, unspecified type I10 Hypertension type: unspecified Benign essential HTN I10 Type 2 diabetes mellitus with hyperglycemia, without long-term current use of insulin E11.65 Diabetes mellitus care home insulin use: without care home use Diabetes mellitus complication status: with hyperglycemia Pancreatitis K85.90 Acute pancreatitis complication: no infection or necrosis Chronicity: acute Pancreatitis type: unspecified pancreatitis type
[2024-02-25] MEDS: acetaminophen 325 mg Tablet 650 MG PO (20:18)
[2024-02-26] VITALS (11 sets, daily range): BP systolic 91–149; BP diastolic 54–73; PULSE 40–58; RESP 16–20; TEMP 36.5–36.9; O2SAT 96–99
[2024-02-26] MEDS: piperacillin-tazobactam 3.375 GM in sodium chloride 0.9% (plus) 50 ML IV ×4 (00:15→23:14)
[2024-02-26] MEDS: sodium chloride 0.9% 1,000 ML 100 ML IV ×3 (00:20→20:07)
[2024-02-26] MEDS: pantoprazole 40 mg SDV IVP (03:48)
[2024-02-26] MEDS: heparin 5,000 unit/mL INJ 1 mL 5000 UNIT SUBCUT ×2 (03:48→17:30)
[2024-02-26] MEDS: morphine 4 mg/mL SDV 1 mL 2 MG IVP ×2 (03:48→10:42)
[2024-02-26 05:13] LABS: Basophils % 0.5 %; Eosinophils % 0.5 %; Hematocrit 36.7 % (36-47); Lymphocytes # 1.7 10^3/uL (0.8-4.8); Lymphocytes % 28.9 %; Mean Corpuscular HGB Conc 31.3 g/dL (30-55); Mean Corpuscular Hemoglobin 29.1 pg (27-33); Mean Corpuscular Volume 92.9 fl (85-98); Mean Platelet Volume 10.3 fL (7.4-10.4); Monocytes # 0.4 10^3/uL (0.2-0.9); Neutrophils # 3.73 10^3/uL (1.8-7.7); Neutrophils % 63.9 %; Nucleated Red Blood Cells % 0 %; Platelet Count 176 10^3/cmm (157-399); Red Blood Count 3.95 10^6/uL (3.85-5.65); Red Cell Distribution Width 13.9 % (12.1-15.1); White Blood Count 5.84 10^3/uL (3.29-11.43)
[2024-02-26 05:13] LABS: Glucose Point of Care 84 mg/dL (70-110)
[2024-02-26 05:47] LABS: Procalcitonin 0.04 ng/mL (0-0.5)
[2024-02-26 05:49] LABS: Alanine Aminotransferase 74 U/L (0-33); Albumin Level 3.3 g/dL (3.5-5.2); Alkaline Phosphatase 93 U/L (35-105); Anion Gap 17.9 (5-19); Aspartate Amino Transferase 34 U/L (0-32); Blood Urea Nitrogen 9 mg/dL (6-20); Calcium 8.3 mg/dL (8.5-10.5); Carbon Dioxide 19 mmol/L (22-29); Chloride 108 mmol/L (98-107); Creatinine Clr Calc Pharmacy 90.4876; Globulin 1.7 g/dL (1.3-4.6); Glomerular Filtration Rate 88.2 mL/min (90-130); Glucose 83 mg/dL (65-115); Magnesium 1.9 mg/dL (1.7-2.3); Osmolality Calculated 290 mOsm/kg (285-295); Potassium 3.9 mmol/L (3.5-5.1); Sodium 141 mmol/L (136-145); Total Bilirubin 0.6 mg/dL (0.15-1.2)
[2024-02-26 05:50] LABS: C Reactive Protein 7.8 mg/L (0.0-4.9)
--- NOTE | 2024-02-26 08:00 | P.PN_ITS ---
Subjective 2 Subjective: Patient seen and examined. Abdominal pain much improved. Denies any nausea or vomiting Vitals/I&O/Wt Last Vital Signs Temp 98.0 F 02/27/24 04:00 Pulse 55 L 02/27/24 06:00 Resp 16 02/27/24 04:44 BP 114/67 02/27/24 04:00 Pulse Ox 97 02/27/24 04:44 O2 Del Method Room Air 02/27/24 04:00 O2 Flow Rate 3 02/25/24 01:12 02/26/24 02/27/24 02/27/24 22:59 06:59 14:59 Intake Total 1290.000 / 2143.333 995 / 3138.333 Balance 1290.000 / 2143.333 995 / 3138.333 Weight last 48 hrs Weight 125 lb Weight 151 lb 6 oz Weight 125 lb Physical Exam 2 Narrative: General: No acute distress, awake alert and oriented x 3 Abdomen: Soft, nondistended, mild epigastric tenderness Data 02/27/24 04:23 02/27/24 04:23 A&P Assessment and plan (1) Acute calculous cholecystitis: (2) Gallstone pancreatitis: Plan IV fluids Clear liquid diet N.p.o. after midnight Laparoscopic cholecystectomy The risks and benefits of the procedure, including but not limited to, bleeding, infection, scar, numbness, pain, damage to surrounding structures, damage to common bile duct requiring additional surgery, conversion to an open procedure, were explained to the patient. He is understanding of the risks and wishes to proceed. Medical management per hospitalist Attestations 2 Medical Necessity Statement*: Per primary Coding Level of Care Code 24096 Diagnoses Acute calculous cholecystitis K80.00 Gallstone pancreatitis K85.10
--- NOTE | 2024-02-26 09:49 | PC.CHAP ---
Pastoral Care Encounter/Spiritual Assessment Type of Contact [] Declined jira administrator visit [] Patient/Family/Request visit [] Outpatient visit [] Follow-up visit [] Physician referral [] Code/Alert [] Routine visit [] Staff referral [] Actively dying [x] Patient sleeping [] Family support [] [] Out of room [] Palliative care [] [] Receiving care in room [] Pre-surgical visit [] Trauma [] Long length of stay [] ICU visit [] Other: Relational/Emotional Strength [] Patient feels connected with others/family/visitors/staff [] Distress [] Loneliness/isolation [] Abandonment Spirituality of Patient [] Person of Le [] Attends Scientologist of their Le [] Believes in Prayer [] Reads Bible or Shinto materials [] There are Spiritual issues to be addressed Shelf Filler Interventions [] Prayer [] Active listening [] Non-anxious presence [] Spiritual/emotional support [] Crisis/trauma care [] Spiritual counseling [] Bereavement support [] Provided bereavement packet [] Provided Bible/devotional materials [] Provided toy/stuffed animal, coloring book to patient or family member [] Provided Communion [] Anointing/[place] [] Salvation [] Completed spiritual assessment [] Other: Impact on Illness or Injury [] Angry [] Fearful [] Anxious [] Often cries [] Exhaustion [] Unable to work [] Unable to attend confucianist [] Unable to walk/stand [] Unable to read [] Unable to drive [] Unable to eat/drink [] Unable to sleep [] Unable to be with family [] Patient intubated [] Other: Summary Time spent with patient
[2024-02-26] MEDS: ondansetron 2 mg/ML SDV 2 mL 4 MG IVP (10:43)
--- NOTE | 2024-02-26 13:51 | P.PN_ITS ---
Subjective 2 Subjective: Patient was seen this morning, continues to have abdominal pain, no fevers, no chills, no nausea, no vomiting, Vitals/I&O/Wt Last Vital Signs Temp 97.9 F 02/26/24 11:23 Pulse 51 L 02/26/24 11:23 Resp 16 02/26/24 11:23 BP 112/56 02/26/24 11:23 Pulse Ox 97 02/26/24 11:23 O2 Del Method Room Air 02/26/24 11:23 O2 Flow Rate 3 02/25/24 01:12 02/25/24 02/26/24 02/26/24 22:59 06:59 14:59 Intake Total 560 / 1610 540 / 2150 853.333 / 853.333 Balance 560 / 1610 540 / 2150 853.333 / 853.333 Weight last 48 hrs Weight 68.663 kg Weight 56.699 kg Weight 68.039 kg Physical Exam 2 Const: COMMON NORMALS: no acute distress and patient oriented x3 Resp: COMMON NORMALS: normal respiratory effort, No retractions, No use of accessory muscles and clear to auscultation bilaterally AUSCULTATION: clear to auscultation bilaterally Cardio: COMMON NORMALS: regular rate, regular rhythm, S1 normal heart sound present and S2 normal heart sound present RATE: regular rate RHYTHM: r egular rhythm HEART SOUNDS: S1 normal heart sound present and S2 normal heart sound present GI: OTHER: Abdomen soft, slightly distended, scattered bowel sounds, diffuse tenderness, no guarding, no rebound, no rigidity Extremity: COMMON NORMALS: no pedal edema Neuro: COMMON NORMALS: patient oriented x3 Data 02/26/24 04:36 02/26/24 04:36 A&P Assessment and plan (1) Hypertension: Qualifiers: Hypertension type: unspecified Qualified Code(s): I10 - Essential (primary) hypertension (2) Benign essential HTN: (3) Type 2 diabetes mellitus: Qualifiers: Diabetes mellitus jail insulin use: without service car driver use Diabetes mellitus complication status: with hyperglycemia Qualified Code(s): E11.65 - Type 2 diabetes mellitus with hyperglycemia (4) Pancreatitis: Qualifiers: Acute pancreatitis complication: no infection or necrosis Chronicity: a cute Pancreatitis type: unspecified pancreatitis type Qualified Code(s): K 85.90 - Acute pancreatitis without necrosis or infection, unspecified Plan #Acute pancreatitis #Previously on Ozempic and now on Mounjaro. #Hypertension # Suspect gallstone pancreatitis, given ultrasound findings ? CT abdomen pelvis reviewed evidence of pancreatitis, mild gallbladder wall thickening present, no gallstones seen ? Check gallbladder ultrasound US/US abdomen limited [id number] IMPRESSION: Imaging findings concerning for acute calculus cholecystitis. Further evaluation with HIDA scan should be considered in the adequate clinical setting. ? Will empirically place on Zosyn at this time ? Normal saline 150 cc/h ? Protonix 40 IV daily ? Heparin SQ twice daily ? Wean off oxygen as able. Patient on 2 L right now saturating 100% ? UA shows 1+ bacteria. ? Strict n.p.o. at this time ? Morphine 4 mg every 4 hours as needed. Patient allergic to Dilaudid. - Will advise patient to stop Mounjaro and not to take medications of same class again. -Accu-Cheks every 6 hours. Full code DVT prophylaxis: Heparin SQ twice daily Plan for today, concern for gallstone pancreatitis, continue IV fluids, continue broad-spectrum antibiotic therapy, plans on possible surgical invention tomorrow, cholecystectomy Attestations 2 Medical Necessity Statement*: Patient requires hospitalization for pancreatitis concern for gallstone pancreatitis Diagnoses Hypertension, unspecified type I10 Hypertension type: unspecified Benign essential HTN I10 Type 2 diabetes mellitus with hyperglycemia, without long-term current use of insulin E11.65 Diabetes mellitus service car driver insulin use: without jail use Diabetes mellitus complication status: with hyperglycemia Pancreatitis K85.90 Acute pancreatitis complication: no infection or necrosis Chronicity: acute Pancreatitis type: unspecified pancreatitis type
[2024-02-26] MEDS: acetaminophen 325 mg Tablet 650 MG PO ×2 (14:57→21:12)
[2024-02-26 21:23] LABS: Glucose Point of Care 75 mg/dL (70-110)
[2024-02-26 21:23] LABS: Glucose Point of Care 95 mg/dL (70-110)
[2024-02-26 21:44] LABS: Glucose Point of Care 89 mg/dL (70-110)
[2024-02-27] VITALS (21 sets, daily range): BP systolic 102–136; BP diastolic 28–80; PULSE 47–74; RESP 14–98; TEMP 36.1–36.9; O2SAT 96–100
--- NOTE | 2024-02-27 02:39 | ECG_ITS ---
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 Measurements Intervals [place] Rate: 52 P: 60 [place]: 194 QRS: 80 QRSD: 92 T: 70 QT: 458 QTc: 428 Interpretive Statements SINUS BRADYCARDIA WITH SINUS ARRHYTHMIA Compared to ECG 04/27/2023 05:14:30 First degree AV block no longer present Electronically Signed On 02-27-2024 22:21:[address] Ramsey M.D. [id number]
[2024-02-27 04:06] LABS: Glucose Point of Care 89 mg/dL (70-110)
[2024-02-27] MEDS: pantoprazole 40 mg SDV IVP (04:37)
[2024-02-27] MEDS: heparin 5,000 unit/mL INJ 1 mL 5000 UNIT SUBCUT ×2 (04:37→15:49)
[2024-02-27] MEDS: acetaminophen 325 mg Tablet 650 MG PO (04:37)
[2024-02-27] MEDS: morphine 4 mg/mL SDV 1 mL 2 MG IVP ×3 (04:44→23:36)
[2024-02-27] MEDS: ondansetron 2 mg/ML SDV 2 mL 4 MG IVP ×3 (04:47→23:56)
[2024-02-27 04:51] LABS: Basophils % 0.6 %; Eosinophils # 0.1 10^3/uL (0.0-0.8); Eosinophils % 0.9 %; Hematocrit 35.5 % (36-47); Lymphocytes # 1.8 10^3/uL (0.8-4.8); Lymphocytes % 27.1 %; Mean Corpuscular HGB Conc 32.1 g/dL (30-55); Mean Corpuscular Hemoglobin 29.2 pg (27-33); Mean Corpuscular Volume 90.8 fl (85-98); Mean Platelet Volume 10.7 fL (7.4-10.4); Monocytes # 0.5 10^3/uL (0.2-0.9); Monocytes % 8.3 %; Neutrophils # 4.07 10^3/uL (1.8-7.7); Neutrophils % 62.8 %; Nucleated Red Blood Cells % 0 %; Platelet Count 168 10^3/cmm (157-399); Red Blood Count 3.91 10^6/uL (3.85-5.65); Red Cell Distribution Width 13.6 % (12.1-15.1); White Blood Count 6.49 10^3/uL (3.29-11.43)
[2024-02-27 05:13] LABS: Alanine Aminotransferase 52 U/L (0-33); Albumin Level 3.2 g/dL (3.5-5.2); Alkaline Phosphatase 86 U/L (35-105); Aspartate Amino Transferase 19 U/L (0-32); Blood Urea Nitrogen 5 mg/dL (6-20); Carbon Dioxide 21 mmol/L (22-29); Chloride 107 mmol/L (98-107); Creatinine Clr Calc Pharmacy 90.4876; Globulin 2.3 g/dL (1.3-4.6); Glomerular Filtration Rate 88.2 mL/min (90-130); Glucose 82 mg/dL (65-115); Osmolality Calculated 284 mOsm/kg (285-295); Sodium 139 mmol/L (136-145); Total Bilirubin 0.6 mg/dL (0.15-1.2); Total Protein 5.5 g/dL (6.6-8.7)
[2024-02-27 05:17] LABS: C Reactive Protein 13.9 mg/L (0.0-4.9)
[2024-02-27 05:18] LABS: Procalcitonin 0.04 ng/mL (0-0.5)
[2024-02-27] MEDS: sodium chloride 0.9% 1,000 ML 100 ML IV ×2 (05:34→15:48)
[2024-02-27 06:23] LABS: Glucose Point of Care 82 mg/dL (70-110)
--- NOTE | 2024-02-27 07:01 | PM.PN ---
Vitals/I&O/Wt Last Vital Signs Temp 98.0 F 02/27/24 04:00 Pulse 55 L 02/27/24 06:00 Resp 16 02/27/24 04:44 BP 114/67 02/27/24 04:00 Pulse Ox 97 02/27/24 04:44 O2 Del Method Room Air 02/27/24 04:00 O2 Flow Rate 3 02/25/24 01:12 02/26/24 02/27/24 02/27/24 22:59 06:59 14:59 Intake Total 1290.000 / 2143.333 995 / 3138.333 Balance 1290.000 / 2143.333 995 / 3138.333 Weight last 48 hrs Weight 125 lb Weight 151 lb 6 oz Weight 125 lb Data 02/27/24 04:23 02/27/24 04:23 A&P Assessment and plan (1) Acute calculous cholecystitis: (2) Gallstone pancreatitis: Plan IV fluids Laparoscopic cholecystectomy The risks and benefits of the procedure, including but not limited to, bleeding, infection, scar, numbness, pain, damage to surrounding structures, damage to common bile duct requiring additional surgery, conversion to an open procedure, were explained to the patient. He is understanding of the risks and wishes to proceed. Medical management per hospitalist Attestations Medical Necessity Statement*: Per Primary Coding Level of Care Code Acute Code for [facility] Fwd Diagnoses Acute calculous cholecystitis K80.00 Gallstone pancreatitis K85.10
[2024-02-27] MEDS: piperacillin-tazobactam 3.375 GM in sodium chloride 0.9% (plus) 50 ML IV ×3 (08:23→23:56)
--- NOTE | 2024-02-27 11:14 | P.ANESASSM_ITS ---
Pre-Anesthetic Assessment Height/Weight: Height 1.63 m Weight 56.699 kg Temp Pulse Resp BP Pulse Ox O2 Del Method O2 Flow Rate 98.4 F 56 L 14 103/59 99 Room Air 3 02/27/24 07:40 02/27/24 07:40 02/27/24 07:40 02/27/24 07:40 02/27/24 07:40 02/27/24 08:34 02/25/24 01:12 Operation Date: 02/27/24 11:15 Proposed Procedures p Laparoscopic Cholecystectomy(Not Applicable) - Prabhakar Vazquez DO Familial anesthetic complications: none Was Beta Sangita taken within 24 hours: N/A Was Clonidine taken within 24 hours: N/A Last intake: Intake Last Liquid Date 02/27/24 Last Liquid Time 00:00 Last Solid Date 02/27/24 Last Solid Time 00:00 Social No alcohol and No tobacco Exam alert, oriented x 3, clear to auscultation bilaterally and regular rate & rhythm Airway Mallampati: Class II Dentition: full CV/HEM Hypertension bicuspid valve Metabolic Diabetes Mellitus Anesthetic Plan ASA status: 3 Anesthesia: General Risk of > 500 ml blood loss (7ml/kg in children): No Medications/Allergies Home Medications Medication Instructions Recorded Confirmed Last Taken Type albuterol sulfate 90 mcg/actuation 2 puff inhalation Q6H PRN 11/19/23 02/25/24 Unknown Rx aerosol inhaler (Ventolin HFA) shortness of breath or wheezing #8.5 grams acyclovir 400 mg tablet 400 mg PO TID 02/25/24 02/25/24 Unknown History bupropion HCl 150 mg 24 hr tablet, 150 mg PO QAM 02/25/24 02/25/24 02/23/24 History extended release lisinopril 20 mg tablet 20 mg PO DAILY PRN DIRECTED 02/25/24 02/25/24 Unknown History tirzepatide 2.5 mg/0.5 mL 2.5 mg SUBCUT Q7D 02/25/24 02/25/24 02/17/24 History subcutaneous pen injector Allergies Allergy/AdvReac Type Severity Reaction Status Date / Time hydromorphone [From Dilaudid] Allergy Unknown Verified 01/29/24 10:59 codeine AdvReac Severe NAUSEA Verified 01/29/24 10:59 Current Medications Generic Name Dose Route Start Last Admin Trade Name Freq PRN Reason Stop Dose Admin Acetaminophen 650 mg 02/25/24 04:16 02/27/24 04:37 Acetaminophen 325 Mg Tablet PO 650 mg Q6H PRN Administration Mild/Mod Pain Or Temp >/= 101 Heparin Sodium (Porcine) 5,000 unit 02/25/24 04:30 02/27/24 04:37 Heparin 5,000 Unit/Ml Inj 1 Ml SUBCUT 5,000 unit Q12H JESSI Administration Sodium Chloride 1,000 mls @ 100 mls/hr 02/25/24 04:30 02/27/24 05:34 Sodium Chloride 0.9% IV 100 mls/hr .Q10H JESSI Administration Piperacillin Sod/Tazobactam 50 mls @ 12.5 mls/hr 02/25/24 07:30 02/27/24 08:23 Sod 3.375 gm/ Sodium Chloride IV 12.5 mls/hr Q8H JESSI Administration Protocol Morphine Sulfate 2 mg 02/25/24 07:05 02/27/24 04:44 Morphine 4 Mg/Ml Sdv 1 Ml IVP 2 mg Q4H PRN Administration SEVERE PAIN Ondansetron HCl 4 mg 02/25/24 04:16 02/27/24 04:47 Ondansetron 2 Mg/Ml Sdv 2 Ml IVP 4 mg Q8H PRN Administration vomiting, or N/V if npo Pantoprazole Sodium 40 mg 02/25/24 04:30 02/27/24 04:37 Pantoprazole 40 Mg Sdv IVP 40 mg Q24H JESSI Administration PFSH Anesthesia Medical History Pancreatitis Palpitations Leg swelling Bicuspid aortic valve Benign essential HTN Herpes Type 2 diabetes mellitus Surgical History S/P hysterectomy Hx of breast reduction, elective Family History Mother Cancer THYROID Diabetes CAD (coronary artery disease) Stroke Brother CAD (coronary artery disease) Diabetes Denies family history of Clotting disorder Dementia Chronic kidney disease (CKD) Suicide Anesthesia complication Bleeding disorder Lung disease Social History Smoking and tobacco/nicotine status: former use of tobacco/nicotine Second hand smoke exposure: No Alcohol intake: current Alcohol intake frequency: holidays/special occasions only Substance/Drug Use: never Household members: spouse Marital status: Data Anesthesia 02/27/24 04:23 02/27/24 04:23 Short CBC 02/26/24 02/27/24 Range/Units 04:36 04:23 WBC 5.84 6.49 (3.29-11.43) 10^3/uL Hgb 11.50 11.40 (11.27-16.99) g/dL Hct 36.7 35.5 L (36-47) % MCV 92.9 90.8 (85-98) fl Plt Count 176 D 168 (157-399) 10^3/cmm Neut % (Auto) 63.9 62.8 % Neut # (Auto) 3.73 4.07 (1.8-7.7) 10^3/uL BMP 02/26/24 02/27/24 04:36 04:23 Sodium 141 139 Potassium 3.9 4.0 Chloride 108 H 107 Carbon Dioxide 19 L 21 L BUN 9 5 L Creatinine 0.7 0.7 Glucose 83 82 Calcium 8.3 L 8.0 L Liver Function 02/26/24 02/27/24 Range/Units 04:36 04:23 Total Bilirubin 0.6 0.6 (0.15-1.2) mg/dL AST 34 H 19 (0-32) U/L ALT 74 H 52 H (0-33) U/L Alkaline Phosphatase 93 86 (35-105) U/L Albumin 3.3 L 3.2 L (3.5-5.2) g/dL Coags 02/26/24 02/27/24 04:36 04:23 C-Reactive Protein 7.8 H 13.9 H Cardiac Studies: 2 Echocardiogram 11/30/22 Echocardiogram Ultrasound 06/03/20 Cardiac Event Monitor 05/08/22
[2024-02-27] MEDS: lidocaine-epi 2% PF 1:200,000 20 mL SDV XX (11:57)
--- NOTE | 2024-02-27 12:20 | P.OP_ITS ---
Operative Report Date of procedure: February 27, 2024 Surgeon: Prabhakar Vazquez DO Brief History: This very pleasant 53-year-old female who presented to the hospital with abdominal pain. She was diagnosed with recurrent pancreatitis from gallstone pancreatitis with acute calculous cholecystitis. Laparoscopic cholecystectomy was indicated. The risk and benefits were explained and documented. Procedure: Preoperative diagnosis: Acute calculous cholecystitis with gallstone pancreatitis Postoperative diagnosis: Same Procedure performed: Laparoscopic cholecystectomy Surgeon: Dr. Prabhakar Vazquez DO Estimated blood loss: 5 mL Specimens: Gallbladder to pathology Complications: None apparent Description of procedure: Patient was wheeled into the operative room and placed on the OR table in a supine position. Abdomen was inspected prepped and draped in usual sterile fashion. Time-out was performed and all present were in agreement. A 15 blade scalp was used to make a stab incision in the left upper quadrant and intra- abdominal insufflation was achieved using a Veress needle. After localizing the tissue incisions were made and a 5 millimeter trocar was placed into the u mbilicus as well as 2 in the right upper quadrant. A 12 millimeter trocar was placed in the epigastrium. Gallbladder was grasped and elevated. The gallbladder was very edematous. The triangle of Calot was carefully dissected using blunt dissection and electrocautery until the triangle of Calot clearly identified. The cystic duct was clipped proximally and double clipped distally. The duct was then ligated proximally. The cystic artery was doubly clipped and ligated. The gallbladder was then removed from the liver bed using electrocautery. The gallbladder was removed from the abdomen using an Endo- Catch bag through the epigastric incision. The liver bed was inspected and no bleeding was seen. The abdomen was irrigated and suctioned. All ports removed. Skin was washed and dried. Incisions were closed with 4-0 Monocryl in a subcuticular interrupted fashion. Skin glue was applied. Patient tolerated the procedure well.
[2024-02-27] MEDS: fentaNYL 50 mcg/mL INJ 2mL IVP (12:50)
--- NOTE | 2024-02-27 13:20 | ANE.PACU2 ---
Inpatient post-anesthesia follow up: Airway intact: Yes Vital signs: Temperature 97 F Pulse Rate 72 Respiratory Rate 16 Blood Pressure 102/60 Pulse Oximetry 99 Oxygen Delivery Me thod Room Air Oxygen Flow Rate 6 Fraction of Inspir ed Oxygen Hydration adequate: Yes Nausea and vomiting: No Pain level: 1 Mental status: Baseline
--- NOTE | 2024-02-27 13:36 | PM.PN ---
Subjective Subjective: Patient was seen this morning, preoperatively, denies Vitals/I&O/Wt Last Vital Signs Temp 97 F L 02/27/24 12:35 Pulse 72 02/27/24 13:15 Resp 16 02/27/24 13:15 BP 102/60 02/27/24 13:15 Pulse Ox 99 02/27/24 13:15 O2 Del Method Room Air 02/27/24 13:15 O2 Flow Rate 6 02/27/24 12:55 02/26/24 02/27/24 02/27/24 22:59 06:59 14:59 Intake Total 1290.000 / 2143.333 995 / 3138.333 1490 / 1490 Output Total 10 / 10 Balance 1290.000 / 2143.333 995 / 3138.333 1480 / 1480 Weight last 48 hrs Weight 56.699 kg Weight 68.663 kg Weight 56.699 kg Physical Exam Const: COMMON NORMALS: no acute distress and patient oriented x3 Resp: COMMON NORMALS: normal respiratory effort, No retractions, No use of accessory muscles and clear to auscultation bilaterally AUSCULTATION: clear to auscultation bilaterally Cardio: COMMON NORMALS: regular rate, regular rhythm, S1 normal heart sound present and S2 normal heart sound present RATE: regular rate RHYTHM: regular rhythm HEART SOUNDS: S1 normal heart sound present and S2 normal heart sound present GI: COMMON NORMALS: Normal to inspection, nondistended, normoactive bowel sounds present and non-tender Extremity: COMMON NORMALS: no pedal edema Neuro: COMMON NORMALS: patient oriented x3 Psych: COMMON NORMALS: mental status grossly normal Data 02/28/24 06:20 02/28/24 06:20 A&P Assessment and plan (1) Hypertension: Qualifiers: Hypertension type: unspecified Qualified Code(s): I10 - Essential (primary) hypertension (2) Benign essential HTN: (3) Type 2 diabetes mellitus: Qualifiers: Diabetes mellitus complication status: with hyperglycemia 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 #Hypertension # Suspect gallstone pancreatitis, given ultrasound findings ? CT abdomen pelvis reviewed evidence of pancreatitis, mild gallbladder wall thickening present, no gallstones seen ? Check gallbladder ultrasound US/US abdomen limited [id number] IMPRESSION: Imaging findings concerning for acute calculus cholecystitis. Further evaluation with HIDA scan should be considered in the adequate clinical setting. ? Will empirically place on Zosyn at this time ? Normal saline 150 cc/h ? Protonix 40 IV daily ? Heparin SQ twice daily ? Wean off oxygen as able. Patient on 2 L right now saturating 100% ? UA shows 1+ bacteria. ? Strict n.p.o. ? Morphine 4 mg every 4 hours as needed. Patient allergic to Dilaudid. - Will advise patient to stop Mounjaro and not to take medications of same class again. -Accu-Cheks every 6 hours. 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
[2024-02-27] MEDS: TRAMadol 50 mg Tablet PO (19:29)
[2024-02-27 20:30] LABS: Glucose Point of Care 196 mg/dL (70-110)
[2024-02-28] VITALS (7 sets, daily range): BP systolic 108–129; BP diastolic 55–70; PULSE 59–68; RESP 14–16; TEMP 36.6–37; O2SAT 94–96
[2024-02-28] MEDS: pantoprazole 40 mg SDV IVP (05:57)
[2024-02-28] MEDS: heparin 5,000 unit/mL INJ 1 mL 5000 UNIT SUBCUT (05:57)
[2024-02-28] MEDS: morphine 4 mg/mL SDV 1 mL 2 MG IVP (05:57)
[2024-02-28 06:29] LABS: Basophils % 0.1 %; Hematocrit 35.2 % (36-47); Lymphocytes # 1.1 10^3/uL (0.8-4.8); Lymphocytes % 9.9 %; Mean Corpuscular HGB Conc 33.8 g/dL (30-55); Mean Corpuscular Hemoglobin 29.3 pg (27-33); Mean Corpuscular Volume 86.7 fl (85-98); Mean Platelet Volume 10.3 fL (7.4-10.4); Monocytes # 0.9 10^3/uL (0.2-0.9); Monocytes % 8.1 %; Neutrophils # 9.27 10^3/uL (1.8-7.7); Neutrophils % 81.5 %; Nucleated Red Blood Cells % 0 %; Platelet Count 209 10^3/cmm (157-399); Red Blood Count 4.06 10^6/uL (3.85-5.65); Red Cell Distribution Width 13.1 % (12.1-15.1); White Blood Count 11.38 10^3/uL (3.29-11.43)
[2024-02-28 06:59] LABS: Blood Urea Nitrogen 6 mg/dL (6-20); C Reactive Protein 21.6 mg/L (0.0-4.9); Carbon Dioxide 19 mmol/L (22-29); Chloride 105 mmol/L (98-107); Creatinine Clr Calc Pharmacy 97.1885; Glomerular Filtration Rate 105.4 mL/min (90-130); Sodium 135 mmol/L (136-145)
[2024-02-28 07:00] LABS: Alanine Aminotransferase 51 U/L (0-33); Albumin Level 3.2 g/dL (3.5-5.2); Alkaline Phosphatase 84 U/L (35-105); Aspartate Amino Transferase 22 U/L (0-32); Calcium 8.2 mg/dL (8.5-10.5); Globulin 2.4 g/dL (1.3-4.6); Glucose 146 mg/dL (65-115); Osmolality Calculated 280 mOsm/kg (285-295); Procalcitonin 0.07 ng/mL (0-0.5); Total Bilirubin 0.4 mg/dL (0.15-1.2); Total Protein 5.6 g/dL (6.6-8.7)
[2024-02-28] MEDS: piperacillin-tazobactam 3.375 GM in sodium chloride 0.9% (plus) 50 ML IV (08:00)
[2024-02-28 08:26] LABS: Lipase 15 U/L (13-60)
[2024-02-28] MEDS: TRAMadol 50 mg Tablet PO (10:56)
[2024-03-02 07:32] LABS: Glucose Point of Care 168 mg/dL (70-110)
[2024-03-02 07:33] LABS: Glucose Point of Care 108 mg/dL (70-110)
--- NOTE | 2024-03-10 14:13 | P.DS_ITS ---
Discharge Providers Date of Admission: 02/25/24 03:30 Date of Discharge: March 10, 2024 Attending Provider at Admission: Karolina Moran MD Attending Provider at Discharge: Everette Camilo MD Primary Care Provider: MARIANNA Jaquez Diagnoses at Discharge Discharge Diagnosis (1) Hypertension: Status: Acute Qualifiers: Hypertension type: unspecified Qualified Code(s): I10 - Essential (primary) hypertension (2) Benign essential HTN: Status: Acute (3) Type 2 diabetes mellitus: Status: Acute Qualifiers: Diabetes mellitus superintendent terminal insulin use: without residential use Diabetes mellitus complication status: with hyperglycemia Qualified Code(s): E11.65 - Type 2 diabetes mellitus with hyperglycemia (4) Pancreatitis: Status: Resolved Qualifiers: Acute pancreatitis complication: no infection or necrosis Chronicity: acute Pancreatitis type: unspecified pancreatitis type Qualified Code(s): K85.90 - Acute pancreatitis without necrosis or infection, unspecified Reason for Visit Reason for Visit: abd pain Hospital Course Hospital Course mirna Patel is a 53 year old female With past medical history of HTN, type 2 diabetes mellitus previously on Ozempic and had an episode of pancreatitis few months ago presented to the hospital today with abdominal pain. She states she had pain a few days ago but it was mild however today after eating a hamburger she had excruciating abdominal pain which brought her to the ER. Significant other at bedside who provides most of the history. Patient was brought in via EMS and was given fentanyl and route. She is quite drowsy however able to answer some questions. Says she is comfortable at this time. Patient laying in position holding her abdomen. She was on Ozempic in the past however that was stopped and she was switched to Mounjaro. Patient has been on Mounjaro for the last 6 months or so. Labs mainly unremarkable, lipase 6200 CT abdomen pelvis shows mild peripancreatic edema, correlate with pancreatitis. Nonspecific periportal edema and gallbladder wall thickening may be reactive to pancreatitis. Left adnexal cystic lesions not present on prior CT and incompletely imaged on recent MR. Recommend further evaluation with nonemergent pelvic ultrasound. Patient was admitted to [facility] for gallstone pancreatitis, received IV antibiotics, IV hydration, n.p.o., general surgery was consulted, once clinically improved she underwent cholecystectomy, she did well after surgery, will be discharged with close follow-up with general surgery as outpatient. On discharge patient was advised to completely abstain from GLP-1 analog. Physical Exam Const: COMMON NORMALS: no acute distress and patient oriented x3 Resp: COMMON NORMALS: normal respiratory effort, No retractions, No use of accessory muscles and clear to auscultation bilaterally AUSCULTATION: clear to auscultation bilaterally Cardio: COMMON NORMALS: regular rate, regular rhythm, S1 normal heart sound present and S2 normal heart sound present RATE: regular rate RHYTHM: regular rhythm HEART SOUNDS: S1 normal heart sound present and S2 normal heart sound present GI: COMMON NORMALS: Normal to inspection, nondistended, normoactive bowel sounds present and non-tender Extremity: COMMON NORMALS: no pedal edema Neuro: COMMON NORMALS: patient oriented x3 Psych: COMMON NORMALS: mental status grossly normal Discharge Data Studies Completed and Pending Completed Studies During Hospitalization Category Date Time Status CT abdomen pelvis w con* [id number] Stat Cat Scan 02/25/24 00:32 Completed Pathology: Surgical [PTH] Routine Pth 02/27/24 12:16 Completed US abdomen limited [id number] Stat Ultrasound 02/25/24 03:20 Completed Radiology Impressions Abdomen/Pelvis CT 02/25/24 00:32 IMPRESSION: 1. Mild peripancreatic edema. Correlate with pancreatitis. 2. Nonspecific periportal edema and gallbladder wall thickening may be reactive to pancreatitis. 3. Left adnexal cystic lesions, not present on prior CT and incompletely imaged on recent MR. Recommend further evaluation with nonemergent pelvic ultrasound. COMMENTS: Consistent with the [employer]'s Incidental Findings Committee white paper (J Am Neal Radiol 2018): Any incidental renal lesion less than 1 cm or classified as too small to characterize, or any incidental cystic renal lesion characterized as simple-appearing, is likely benign. No follow-up imaging is recommended for these lesions per consensus recommendations based on imaging criteria. Abdomen Ultrasound 02/25/24 03:20 IMPRESSION: Imaging findings concerning for acute calculus cholecystitis. Further evaluation with HIDA scan should be considered in the adequate clinical setting. Laboratory Results WBC 11.38 10^3/uL (3.29-11.43) 02/28/24 06:20 RBC 4.06 10^6/uL (3.85-5.65) 02/28/24 06:20 Hgb 11.90 g/dL (11.27-16.99) 02/28/24 06:20 Hct 35.2 % (36-47) L 02/28/24 06:20 MCV 86.7 fl (85-98) 02/28/24 06:20 MCH 29.3 pg (27-33) 02/28/24 06:20 MCHC 33.8 g/dL (30-55) D 02/28/24 06:20 RDW 13.1 % (12.1-15.1) 02/28/24 06:20 Plt Count 209 10^3/cmm (157-399) 02/28/24 06:20 MPV 10.3 fL (7.4-10.4) 02/28/24 06:20 Neut % (Auto) 81.5 % 02/28/24 06:20 Lymph % (Auto) 9.9 % 02/28/24 06:20 [place] % (Auto) 8.1 % 02/28/24 06:20 Eos % (Auto) 0.0 % 02/28/24 06:20 Baso % (Auto) 0.1 % 02/28/24 06:20 Neut # (Auto) 9.27 10^3/uL (1.8-7.7) H 02/28/24 06:20 Lymph # (Auto) 1.1 10^3/uL (0.8-4.8) 02/28/24 06:20 [place] # (Auto) 0.9 10^3/uL (0.2-0.9) 02/28/24 06:20 Eos # (Auto) 0.0 10^3/uL (0.0-0.8) 02/28/24 06:20 Baso # (Auto) 0.0 10^3/uL (0.0-0.1) 02/28/24 06:20 Nucleated RBC % (auto) 0 % 02/28/24 06:20 Nucleated RBCs # 0.0 /100WBC 02/28/24 06:20 Sodium 135 mmol/L (136-145) L 02/28/24 06:20 Potassium 4.0 mmol/L (3.5-5.1) 02/28/24 06:20 Chloride 105 mmol/L (98-107) 02/28/24 06:20 Carbon Dioxide 19 mmol/L (22-29) L 02/28/24 06:20 Anion Gap 15.0 (5-19) 02/28/24 06:20 BUN 6 mg/dL (6-20) 02/28/24 06:20 Creatinine 0.6 mg/dL (0.5-0.9) 02/28/24 06:20 GFR Calculation 105.4 mL/min (90-130) 02/28/24 06:20 Glucose 146 mg/dL (65-115) H 02/28/24 06:20 POC Glucose 108 mg/dL (70-110) 02/28/24 11:14 Calculated Osmolality 280 mOsm/kg (285-295) L 02/28/24 06:20 Lactic Acid 0.7 mmol/L (0.5-2.2) 02/25/24 04:44 Calcium 8.2 mg/dL (8.5-10.5) L 02/28/24 06:20 Magnesium 1.9 mg/dL (1.7-2.3) 02/26/24 04:36 Total Bilirubin 0.4 mg/dL (0.15-1.2) 02/28/24 06:20 AST 22 U/L (0-32) 02/28/24 06:20 ALT 51 U/L (0-33) H 02/28/24 06:20 Alkaline Phosphatase 84 U/L (35-105) 02/28/24 06:20 C-Reactive Protein 21.6 mg/L (0.0-4.9) H 02/28/24 06:20 Total Protein 5.6 g/dL (6.6-8.7) L 02/28/24 06:20 Albumin 3.2 g/dL (3.5-5.2) L 02/28/24 06:20 Globulin 2.4 g/dL (1.3-4.6) 02/28/24 06:20 Triglycerides 29 mg/dL (0-150) 02/25/24 04:44 Cholesterol 142 mg/dL (0-200) 02/25/24 04:44 LDL Cholesterol, Calc 57 mg/dL (50-129) 02/25/24 04:44 Total VLDL Cholesterol 6 mg/dL (0-30) 02/25/24 04:44 HDL Cholesterol 79 mg/dL (60-100) 02/25/24 04:44 Cholesterol/HDL Ratio 1.80 mg/dL (0.0-4.40) 02/25/24 04:44 Lipase 15 U/L (13-60) 02/28/24 06:20 Procalcitonin 0.07 ng/mL (0-0.5) 02/28/24 06:20 Urine Color Yellow (Yellow) 02/25/24 03:22 Urine Appearance Slightly cloudy (CLEAR) 02/25/24 03:22 Urine pH 7 (5-7) 02/25/24 03:22 Ur Specific [place] 1.005 (1.005-1.030) 02/25/24 03:22 Urine Protein Trace (Negative) 02/25/24 03:22 Urine Glucose (UA) Norm (Normal) 02/25/24 03:22 Urine Ketones 1+ (Negative) H 02/25/24 03:22 Urine Blood Trace (Negative) H 02/25/24 03:22 Urine Nitrate Negative (Negative) 02/25/24 03:22 Urine Bilirubin Neg (Negative) 02/25/24 03:22 Urine Urobilinogen 4 mg/dL (Negative) H 02/25/24 03:22 Ur Leukocyte Esterase Negative (Negative) 02/25/24 03:22 Urine RBC 0-4 /hpf (0-2) H 02/25/24 03:22 Urine WBC None /hpf (0-5) 02/25/24 03:22 Ur Squamous Epith Cells 0-4 /hpf (0-5) H 02/25/24 03:22 Amorphous Sediment 2+ /hpf 02/25/24 03:22 Urine Bacteria 1+ /hpf (NONE) H 02/25/24 03:22 Vitals Last Vital Signs Temp 98.6 F 02/28/24 12:46 Pulse 59 L 02/28/24 12:46 Resp 16 02/28/24 12:46 BP 129/63 02/28/24 12:46 Pulse Ox 94 02/28/24 12:46 O2 Del Method Room Air 02/28/24 11:34 O2 Flow Rate 6 02/27/24 12:55 Discharge Plan Discharge Patient Disposition: Home Condition: Stable Prescriptions: New Colace 100 mg capsule 100 mg PO BID Qty: 14 0RF Continued albuterol sulfate [Ventolin HFA] 90 mcg/actuation HFA aerosol inhaler 2 puff inhalation Q6H PRN (Reason: shortness of breath or wheezing) Qty: 8.5 2RF lisinopril 20 mg tablet 20 mg PO DAILY PRN (Reason: DIRECTED) acyclovir 400 mg tablet 400 mg PO TID Rx Instructions: FOR 10 DAYS bupropion HCl 150 mg tablet extended release 24 hr 150 mg PO QAM Discontinued tirzepatide 2.5 mg/0.5 mL pen injector 2.5 mg SUBCUT Q7D Rx Instructions: ON SATURDAY. Discharge Orders: Discharge Order (Routine); Ordered 02/28/24 Ordered By: Everette Camilo Referrals: Prabhakar Vazquez DO [Physician] - 03/23/24 8:00 am Capri Ramires FNP [Primary Care Provider] - 03/05/24 10:00 am Discharge Diet: Cardiac Discharge Activity: Resume usual activity Patient Instructions: Laxative, Stool Softeners (By mouth), Tramadol (By mouth), Acute Wound Care (DC), GI (Gastrointestinal) Soft Diet (DC), Laparoscopic Cholecystectomy (DC), Opioid Safety, Post Anesthesia Care Activity Restrictions/Additional Instructions: -please hydrate well -monitor for recurrent abdominal pain -donot use monjaro, or tirzepatide or any other glp1 analog -please use tramadol sparingly for pain, donot drive or drink or operate heavy machinery while taking medication Discharge Attestations Time Spent in Discharge Care*: greater than 30 min Quality Metrics Clinical Quality Measures [ No reported AMI, CVA or VTE this stay] Coding Level of Care Code 96419 Total time (in minutes) for Discharge: 45 Diagnoses Hypertension, unspecified type I10 Hypertension type: unspecified Benign essential HTN I10 Type 2 diabetes mellitus with hyperglycemia, without long-term current use of insulin E11.65 Diabetes mellitus residential insulin use: without superintendent terminal use Diabetes mellitus complication status: with hyperglycemia Pancreatitis K85.90 Acute pancreatitis complication: no infection or necrosis Chronicity: acute Pancreatitis type: unspecified pancreatitis type
== END 2024-02-28 12:52 | disposition home or self-care (01) | DRG 439 ==
LOC: ER 02-25 03:23 → ER IP 02-25 03:30 → MEDSURG 02-25 12:55
PROVIDERS: Specialist; Surgery; Admitting Provider Internal Medicine; Emergency Provider Emergency Medicine; PCP Nurse Practitioner Family; Visit Provider Family Medicine
PROC: 0FT44ZZ Resection of Gallbladder, Percutaneous Endoscopic Approach (ICD-10-PCS; CPT 47562; principal; 2024-02-27 11:05)
DX: K85.10 Biliary acute pancreatitis without necrosis or infection (principal); K80.00 Calculus of gallbladder with acute cholecystitis without obstruction; I10 Essential (primary) hypertension; E11.65 Type 2 diabetes mellitus with hyperglycemia; E27.8 Other specified disorders of adrenal gland; Z79.85 Long-term (current) use of injectable non-insulin antidiabetic drugs; Z87.891 Personal history of nicotine dependence
CPT/HCPCS: 36415; 36416; 74177; 76705; 80053; 80061; 81001; 82962; 83605; 83690; 83735; 84145; 84478; 85025; 86140; 88304; 93005; 96372; 97161; 99285; J0131; J0330; J1100; J1644; J1885; J2250; J2270; J2405; J2470; J2543; J2704; J2710; J3010; J3490; J7030; Q9967

== ENCOUNTER 2024-05-05 05:20 | Inpatient (IN) | payer OTHER, SELFPAY ==
[2024-05-05] VITALS (30 sets, daily range): BP systolic 0–152; BP diastolic 0–82; PULSE 47–85; RESP 8–18; TEMP 36.3–36.8; O2SAT 92–100; BMI 22.3
--- NOTE | 2024-05-05 05:22 | ECG_ITS ---
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 Measurements Intervals [place] Rate: 86 P: 61 ID: [id number] QRS: 82 QRSD: 94 T: 70 QT: 388 QTc: 466 Interpretive Statements SINUS RHYTHM MINIMAL ST DEPRESSION [0.025+ mV ST DEPRESSION] Compared to ECG 02/27/2024 02:39:29 ST (T wave) deviation now present Sinus bradycardia no longer present Sinus arrhythmia no longer present Electronically Signed On 05-05-2024 16:56:48 CDT by Elvin Verdin M.D. [email or web address]
--- NOTE | 2024-05-05 05:26 | XRR_ITS ---
PROCEDURE INFORMATION: Exam: XR Chest Exam date and time: 05/05/2024 5:35 AM Age: 53 years old Clinical indication: Other: Overdose TECHNIQUE: Imaging protocol: Radiologic exam of the chest. Views: 1 view. COMPARISON: CR XR chest 1V portable [id number] 04/27/2023 1:56 AM FINDINGS: Lungs: Unremarkable. No consolidation. Pleural spaces: Unremarkable. No pleural effusion. No pneumothorax. Heart/Mediastinum: Unremarkable. No cardiomegaly. Bones/joints: Unremarkable. XR/XR chest 1V portable [id number] IMPRESSION: No acute findings.
--- NOTE | 2024-05-05 05:28 | ED_ITS ---
Documented by User: Jc Ray DO 05/05/24 05:32 HPI - Overdose 2 General: Chief Complaint: Overdose Stated Complaint: OD Time Seen by Provider: 05/05/24 05:26 History of Present Illness: Patient brought in with self-inflicted overdose, EMS said they think she took 9 of her morphine as an unknown amount of lisinopril. It is thought she took them at about 5 AM. Per nursing review of her chart morphine's. could be MS IR 15 mg and lisinopril 20 mg, EMS gave her 4 mg of Zofran, 1 mg of Narcan, patient is sedate but arousable upon arrival to the ER. Related Data Home Medications Medication Instructions Recorded Confirmed bupropion HCl 150 mg 24 hr tablet, 150 mg PO QAM 02/25/24 05/05/24 extended release lisinopril 20 mg tablet 20 mg PO DAILY PRN DIRECTED 02/25/24 05/05/24 Previous Rx's Medication Instructions Recorded albuterol sulfate 90 mcg/actuation 2 puff inhalation Q6H PRN 11/19/23 aerosol inhaler (Ventolin HFA) shortness of breath or wheezing #8.5 grams Allergies Allergy/AdvReac Type Severity Reaction Status Date / Time hydromorphone [From Dilaudid] Allergy Unknown Verified 05/05/24 05:30 codeine AdvReac Severe NAUSEA Verified 05/05/24 05:30 Review of Systems 2 General: Reports: 10 or more systems reviewed and unremarkable except in HPI and below PFSH ED 2 PFSH: Medical History Type 2 diabetes mellitus Pancreatitis Palpitations Leg swelling Bicuspid aortic valve Benign essential HTN Herpes Surgical History History of cholecystectomy February 2024 S/P hysterectomy Hx of breast reduction, elective Family History Mother Cancer THYROID Diabetes CAD (coronary artery disease) Stroke Brother CAD (coronary artery disease) Diabetes Denies family history of Clotting disorder Dementia Chronic kidney disease (CKD) Suicide Anesthesia complication Bleeding disorder Lung disease Social History Smoking and tobacco/nicotine status: never used tobacco/nicotine Second hand smoke exposure: No Alcohol intake: current Alcohol intake frequency: holidays/special occasions only Substance/Drug Use: never Household members: spouse Marital status: Physical Exam 2 Const: COMMON NORMALS: average body habitus, alert (To verbal stimuli) and well nourished HENMT: COMMON NORMALS: normocephalic, atraumatic, hearing grossly normal bilaterally, external ears normal, Normal external nose present and moist oral mucous membranes HEAD & SCALP: normocephalic and atraumatic NOSE: Normal external nose present EXTERNAL EAR: Yes external ears normal Eye: COMMON NORMALS: Equal, round and reactive pupils present, EOMs intact bilaterally, conjunctivae normal and no scleral icterus CONJUNCTIVA: Yes conjunctivae normal PUPIL: Yes Equal, round and reactive pupils present Neck/C-Spine: COMMON NORMALS: full ROM, no lymphadenopathy, supple, no meningeal signs and no JVD Chest: COMMONS NORMALS: normal inspection of the chest and normal palpation of entire chest wall Resp: COMMON NORMALS: normal respiratory effort, No retractions, No use of accessory muscles and clear to auscultation bilaterally AUSCULTATION: clear to auscultation bilaterally Cardio: COMMON NORMALS: no JVD, regular rate, regular rhythm, S1 normal heart sound present, S2 normal heart sound present, No gallops present (Cardio), No clicks present (Cardio), No murmurs present (Cardio) and No rub (Cardio) R ATE: regular rate RHYTHM: regular rhythm HEART SOUNDS: S1 normal heart sound present and S2 normal heart sound present GI: COMMON NORMALS: Normal to inspection, nondistended, normoactive bowel sounds present, Soft to palpation, non-tender, No hepatosplenomegaly present and no masses PALPATION: Yes Soft to palpation and Yes No hepatosplenomegaly present Neuro: SENSORIUM/ORIENTATION: Yes alert (To verbal stimuli) MENINGEAL SIGNS: Yes no meningeal signs Course 2 Vital Signs: Vital signs: Vital Signs Temperature 97.9 F 05/05/24 05:22 Pulse Rate 50 L 05/05/24 07:30 Respiratory Rate 12 05/05/24 07:30 Blood Pressure 120/65 05/05/24 07:30 Pulse Oximetry 98 05/05/24 07:30 Oxygen Delivery Me thod Room Air 05/05/24 05:38 MDM - Overdose Differential Diagnosis Likely suicide attempt by multiple drug overdose and drug overdose Medical Records I reviewed the patient's medical records. Lab Data I reviewed the patient's lab results. 05/05/24 05:30 05/05/24 05:30 Radiology Impressions Chest X-Ray 05/05/24 05:26 IMPRESSION: No acute findings. Laboratory Results WBC 8.42 10^3/uL (3.29-11.43) 05/05/24 05:30 RBC 4.50 10^6/uL (3.85-5.65) 05/05/24 05:30 Hgb 13.10 g/dL (11.27-16.99) 05/05/24 05:30 Hct 40.3 % (36-47) 05/05/24 05:30 MCV 89.6 fl (85-98) 05/05/24 05:30 MCH 29.1 pg (27-33) 05/05/24 05:30 MCHC 32.5 g/dL (30-55) 05/05/24 05:30 RDW 13.0 % (12.1-15.1) 05/05/24 05:30 Plt Count 220 10^3/cmm (157-399) 05/05/24 05:30 MPV 10.0 fL (7.4-10.4) 05/05/24 05:30 Neut % (Auto) 89.6 % 05/05/24 05:30 Lymph % (Auto) 7.5 % 05/05/24 05:30 [place] % (Auto) 2.6 % 05/05/24 05:30 Eos % (Auto) 0.0 % 05/05/24 05:30 Baso % (Auto) 0.1 % 05/05/24 05:30 Neut # (Auto) 7.54 10^3/uL (1.8-7.7) 05/05/24 05:30 Lymph # (Auto) 0.6 10^3/uL (0.8-4.8) L 05/05/24 05:30 [place] # (Auto) 0.2 10^3/uL (0.2-0.9) 05/05/24 05:30 Eos # (Auto) 0.0 10^3/uL (0.0-0.8) 05/05/24 05:30 Baso # (Auto) 0.0 10^3/uL (0.0-0.1) 05/05/24 05:30 Nucleated RBC % (auto) 0 % 05/05/24 05:30 Nucleated RBCs # 0.0 /100WBC 05/05/24 05:30 PT 12.40 SECONDS (12.1-14.9) 05/05/24 05:30 INR 0.89 (0.8-1.2) 05/05/24 05:30 Specimen Type Arterial 05/05/24 05:42 Sample Site Radial, right 05/05/24 05:42 ABG pH 7.39 (7.35-7.45) 05/05/24 05:42 ABG pCO2 41.6 mmHg (35-45) 05/05/24 05:42 ABG pO2 73.4 mmHg (80.0-100.0) L 05/05/24 05:42 ABG HCO3 25.2 mmol/L (22-26) 05/05/24 05:42 ABG O2 Saturation 95.6 05/05/24 05:42 ABG Base Excess 0.2 mmol/L (-2.0-2.0) 05/05/24 05:42 Drake Test Pos 05/05/24 05:42 A-a O2 Gradient 3.1 mmHg (5-10) L 05/05/24 05:42 Hematocrit 39.9 % (37-47) 05/05/24 05:42 Hgb O2 Saturation 93.6 % (95-100) L 05/05/24 05:42 Carboxyhemoglobin 0.8 %THgb (0.4-20.1) 05/05/24 05:42 Methemoglobin 1.2 % (0.4-1.5) 05/05/24 05:42 Total Hemoglobin 13.0 g/dL (12-16) 05/05/24 05:42 Sodium 140.0 mmol/L (131-143) 05/05/24 05:42 Potassium 3.7 mmol/L (3.5-5.0) 05/05/24 05:42 Glucose 172.0 mg/dL (70-115) H 05/05/24 05:42 Ionized Calcium 1.2 mmol/L (1.1-1.4) 05/05/24 05:42 O2 Delivery Device Nc 05/05/24 05:42 O2 Liters/Min 2.0 % 05/05/24 05:42 Pattern Fitter ID Cl 05/05/24 05:42 Sodium 137 mmol/L (136-145) 05/05/24 05:30 Potassium 4.6 mmol/L (3.5-5.1) 05/05/24 05:30 Chloride 101 mmol/L (98-107) 05/05/24 05:30 Carbon Dioxide 24 mmol/L (22-29) 05/05/24 05:30 Anion Gap 16.6 (5-19) 05/05/24 05:30 BUN 13 mg/dL (6-20) 05/05/24 05:30 Creatinine 0.6 mg/dL (0.5-0.9) 05/05/24 05:30 GFR Calculation 105.4 mL/min (90-130) 05/05/24 05:30 Glucose 179 mg/dL (65-115) H 05/05/24 05:30 Calculated Osmolality 289 mOsm/kg (285-295) 05/05/24 05:30 Calcium 9.6 mg/dL (8.5-10.5) 05/05/24 05:30 Phosphorus 3.7 mg/dL (2.5-4.5) 05/05/24 05:30 Magnesium 2.0 mg/dL (1.7-2.3) 05/05/24 05:30 Total Bilirubin 0.4 mg/dL (0.15-1.2) 05/05/24 05:30 AST 15 U/L (0-32) 05/05/24 05:30 ALT 20 U/L (0-33) 05/05/24 05:30 Alkaline Phosphatase 137 U/L (35-105) H 05/05/24 05:30 Troponin T Baseline < 6 ng/L (0-10) 05/05/24 05:30 Troponin T 120 Minute 6.00 ng/L (0-10) 05/05/24 07:32 Delta Troponin T 0.98667 ABS# (0-10) 05/05/24 07:32 Total Protein 6.8 g/dL (6.6-8.7) 05/05/24 05:30 Albumin 4.3 g/dL (3.5-5.2) 05/05/24 05:30 Globulin 2.5 g/dL (1.3-4.6) 05/05/24 05:30 TSH 0.76 uIU/mL (0.27-4.20) 05/05/24 05:30 Urine Color Yellow (Yellow) 05/05/24 07:10 Urine Appearance Clear (CLEAR) 05/05/24 07:10 Urine pH 6.0 (5-7) 05/05/24 07:10 Ur Specific [place] 1.017 (1.005-1.030) 05/05/24 07:10 Urine Protein Negative (Negative) 05/05/24 07:10 Urine Glucose (UA) Trace (Normal) H 05/05/24 07:10 Urine Ketones 1+ (Negative) H 05/05/24 07:10 Urine Blood Negative (Negative) 05/05/24 07:10 Urine Nitrate Negative (Negative) 05/05/24 07:10 Urine Bilirubin Negative (Negative) 05/05/24 07:10 Urine Urobilinogen 1.0 mg/dL (Negative) 05/05/24 07:10 Ur Leukocyte Esterase Negative (Negative) 05/05/24 07:10 Urine RBC 0-2 /hpf (0-2) 05/05/24 07:10 Urine WBC 0-5 /hpf (0-5) 05/05/24 07:10 Ur Squamous Epith Cells 0-5 /hpf (0-5) 05/05/24 07:10 Amorphous Sediment Not Reportable 05/05/24 07:10 Urine Bacteria None seen /hpf (NONE) 05/05/24 07:10 Hyaline Casts 2.46 /lpf 05/05/24 07:10 Salicylates < 0.3 mg/dL (3-10) L 05/05/24 05:30 Urine Opiates Screen Positive ng/mL (Negative) H 05/05/24 07:10 Acetaminophen < 5.0 ug/mL (10-30) L 05/05/24 05:30 Ur Barbiturates Screen Negative ng/mL (Negative) 05/05/24 07:10 Ur Phencyclidine Scrn Negative ng/mL (Negative) 05/05/24 07:10 Ur Amphetamines Screen Negative ng/mL (Negative) 05/05/24 07:10 U Benzodiazepines Scrn Positive ng/mL (Negative) H 05/05/24 07:10 Urine Cocaine Screen Negative ng/mL (Negative) 05/05/24 07:10 U Marijuana (THC) Screen Negative ng/mL (Negative) 05/05/24 07:10 Ethyl Alcohol < 10 mg/dL (0-10) 05/05/24 05:30 All radiology interpretation(s) finalized by discharge EKG Data EKG 1: I personally reviewed and interpreted this EKG as follows: EKG interpretation date: 05/05/24 EKG interpretation time: 05:22 Interpretation: Patient here 86 bpm, AL interval 197, QRS duration 94, QTc 431, sinus rhythm Discharge Plan Discharge Patient Disposition: Admitted As Inpatient Clinical Impression: Suicide attempt by multiple drug overdose, Bicuspid aortic valve, Type 2 diabetes mellitus Condition: Stable Prescriptions: No Action albuterol sulfate [Ventolin HFA] 90 mcg/actuation HFA aerosol inhaler 2 puff inhalation Q6H PRN (Reason: shortness of breath or wheezing) Qty: 8.5 2RF lisinopril 20 mg tablet 20 mg PO DAILY PRN (Reason: DIRECTED) bupropion HCl 150 mg tablet extended release 24 hr 150 mg PO QAM Referrals: Capri Ramires FNP [Primary Care Provider] - Sign Out Sign Out Data: Patient Sign Out occurred on 05/05/24 at 08:04. Patient's care was discussed, and care was transferred from Jc Ray DO to Michoacano Hector DO. Coding Level of Care Code ED Neurology Physician for Chg Fwd Documented by User: [place]oacano Hector DO 05/05/24 08:14 HPI - Overdose 2 General: Chief Complaint: Overdose Stated Complaint: OD Time Seen by Provider: 05/05/24 05:26 Related Data Home Medications Medication Instructions Recorded Confirmed bupropion HCl 150 mg 24 hr tablet, 150 mg PO QAM 02/25/24 05/05/24 extended release lisinopril 20 mg tablet 20 mg PO DAILY PRN DIRECTED 02/25/24 05/05/24 Previous Rx's Medication Instructions Recorded albuterol sulfate 90 mcg/actuation 2 puff inhalation Q6H PRN 11/19/23 aerosol inhaler (Ventolin HFA) shortness of breath or wheezing #8.5 grams Allergies Allergy/AdvReac Type Severity Reaction Status Date / Time hydromorphone [From Dilaudid] Allergy Unknown Verified 05/05/24 05:30 codeine AdvReac Severe NAUSEA Verified 05/05/24 05:30 PFSH ED 2 PFSH: Medical History Type 2 diabetes mellitus Pancreatitis Palpitations Leg swelling Bicuspid aortic valve Benign essential HTN Herpes Surgical History History of cholecystectomy February 2024 S/P hysterectomy Hx of breast reduction, elective Family History Mother Cancer THYROID Diabetes CAD (coronary artery disease) Stroke Brother CAD (coronary artery disease) Diabetes Denies family history of Clotting disorder Dementia Chronic kidney disease (CKD) Suicide Anesthesia complication Bleeding disorder Lung disease Social History Smoking and tobacco/nicotine status: never used tobacco/nicotine Second hand smoke exposure: No Alcohol intake: current Alcohol intake frequency: holidays/special occasions only Substance/Drug Use: never Household members: spouse Marital status: Course 2 Vital Signs: Vital signs: Vital Signs Temperature 97.9 F 05/05/24 05:22 Pulse Rate 50 L 05/05/24 07:30 Respiratory Rate 12 05/05/24 07:30 Blood Pressure 120/65 05/05/24 07:30 Pulse Oximetry 98 05/05/24 07:30 Oxygen Delivery Me thod Room Air 05/05/24 05:38 MDM - Overdose Medical Decision Making Care assumed at change of shift. Patient seen and examined he is somewhat sedate but does answer questions appropriately is easily arousable ambulates to and from restroom and 1 moved to a different room does not not have any difficulties. She had also taken an unknown number of lisinopril. Her vital signs of all been stable. She did receive Narcan and route but has not required any further treatment blood pressure has been normotensive. At this point she is 10 hours out from ingestion of morphine that was all immediate release. Will admit on a 96-hour hold to the [facility] for she should have a repeat BMP tomorrow to reevaluate kidney function. Lab Data 05/05/24 05:30 05/05/24 05:30 Radiology Impressions Chest X-Ray 05/05/24 05:26 IMPRESSION: No acute findings. Laboratory Results WBC 8.42 10^3/uL (3.29-11.43) 05/05/24 05:30 RBC 4.50 10^6/uL (3.85-5.65) 05/05/24 05:30 Hgb 13.10 g/dL (11.27-16.99) 05/05/24 05:30 Hct 40.3 % (36-47) 05/05/24 05:30 MCV 89.6 fl (85-98) 05/05/24 05:30 MCH 29.1 pg (27-33) 05/05/24 05:30 MCHC 32.5 g/dL (30-55) 05/05/24 05:30 RDW 13.0 % (12.1-15.1) 05/05/24 05:30 Plt Count 220 10^3/cmm (157-399) 05/05/24 05:30 MPV 10.0 fL (7.4-10.4) 05/05/24 05:30 Neut % (Auto) 89.6 % 05/05/24 05:30 Lymph % (Auto) 7.5 % 05/05/24 05:30 [place] % (Auto) 2.6 % 05/05/24 05:30 Eos % (Auto) 0.0 % 05/05/24 05:30 Baso % (Auto) 0.1 % 05/05/24 05:30 Neut # (Auto) 7.54 10^3/uL (1.8-7.7) 05/05/24 05:30 Lymph # (Auto) 0.6 10^3/uL (0.8-4.8) L 05/05/24 05:30 [place] # (Auto) 0.2 10^3/uL (0.2-0.9) 05/05/24 05:30 Eos # (Auto) 0.0 10^3/uL (0.0-0.8) 05/05/24 05:30 Baso # (Auto) 0.0 10^3/uL (0.0-0.1) 05/05/24 05:30 Nucleated RBC % (auto) 0 % 05/05/24 05:30 Nucleated RBCs # 0.0 /100WBC 05/05/24 05:30 PT 12.40 SECONDS (12.1-14.9) 05/05/24 05:30 INR 0.89 (0.8-1.2) 05/05/24 05:30 Specimen Type Arterial 05/05/24 05:42 Sample Site Radial, right 05/05/24 05:42 ABG pH 7.39 (7.35-7.45) 05/05/24 05:42 ABG pCO2 41.6 mmHg (35-45) 05/05/24 05:42 ABG pO2 73.4 mmHg (80.0-100.0) L 05/05/24 05:42 ABG HCO3 25.2 mmol/L (22-26) 05/05/24 05:42 ABG O2 Saturation 95.6 05/05/24 05:42 ABG Base Excess 0.2 mmol/L (-2.0-2.0) 05/05/24 05:42 Drake Test Pos 05/05/24 05:42 A-a O2 Gradient 3.1 mmHg (5-10) L 05/05/24 05:42 Hematocrit 39.9 % (37-47) 05/05/24 05:42 Hgb O2 Saturation 93.6 % (95-100) L 05/05/24 05:42 Carboxyhemoglobin 0.8 %THgb (0.4-20.1) 05/05/24 05:42 Methemoglobin 1.2 % (0.4-1.5) 05/05/24 05:42 Total Hemoglobin 13.0 g/dL (12-16) 05/05/24 05:42 Sodium 140.0 mmol/L (131-143) 05/05/24 05:42 Potassium 3.7 mmol/L (3.5-5.0) 05/05/24 05:42 Glucose 172.0 mg/dL (70-115) H 05/05/24 05:42 Ionized Calcium 1.2 mmol/L (1.1-1.4) 05/05/24 05:42 O2 Delivery Device Nc 05/05/24 05:42 O2 Liters/Min 2.0 % 05/05/24 05:42 Pattern Fitter ID Cl 05/05/24 05:42 Sodium 137 mmol/L (136-145) 05/05/24 05:30 Potassium 4.6 mmol/L (3.5-5.1) 05/05/24 05:30 Chloride 101 mmol/L (98-107) 05/05/24 05:30 Carbon Dioxide 24 mmol/L (22-29) 05/05/24 05:30 Anion Gap 16.6 (5-19) 05/05/24 05:30 BUN 13 mg/dL (6-20) 05/05/24 05:30 Creatinine 0.6 mg/dL (0.5-0.9) 05/05/24 05:30 GFR Calculation 105.4 mL/min (90-130) 05/05/24 05:30 Glucose 179 mg/dL (65-115) H 05/05/24 05:30 Calculated Osmolality 289 mOsm/kg (285-295) 05/05/24 05:30 Calcium 9.6 mg/dL (8.5-10.5) 05/05/24 05:30 Phosphorus 3.7 mg/dL (2.5-4.5) 05/05/24 05:30 Magnesium 2.0 mg/dL (1.7-2.3) 05/05/24 05:30 Total Bilirubin 0.4 mg/dL (0.15-1.2) 05/05/24 05:30 AST 15 U/L (0-32) 05/05/24 05:30 ALT 20 U/L (0-33) 05/05/24 05:30 Alkaline Phosphatase 137 U/L (35-105) H 05/05/24 05:30 Troponin T Baseline < 6 ng/L (0-10) 05/05/24 05:30 Troponin T 120 Minute 6.00 ng/L (0-10) 05/05/24 07:32 Delta Troponin T 0.63881 ABS# (0-10) 05/05/24 07:32 Total Protein 6.8 g/dL (6.6-8.7) 05/05/24 05:30 Albumin 4.3 g/dL (3.5-5.2) 05/05/24 05:30 Globulin 2.5 g/dL (1.3-4.6) 05/05/24 05:30 TSH 0.76 uIU/mL (0.27-4.20) 05/05/24 05:30 Urine Color Yellow (Yellow) 05/05/24 07:10 Urine Appearance Clear (CLEAR) 05/05/24 07:10 Urine pH 6.0 (5-7) 05/05/24 07:10 Ur Specific [place] 1.017 (1.005-1.030) 05/05/24 07:10 Urine Protein Negative (Negative) 05/05/24 07:10 Urine Glucose (UA) Trace (Normal) H 05/05/24 07:10 Urine Ketones 1+ (Negative) H 05/05/24 07:10 Urine Blood Negative (Negative) 05/05/24 07:10 Urine Nitrate Negative (Negative) 05/05/24 07:10 Urine Bilirubin Negative (Negative) 05/05/24 07:10 Urine Urobilinogen 1.0 mg/dL (Negative) 05/05/24 07:10 Ur Leukocyte Esterase Negative (Negative) 05/05/24 07:10 Urine RBC 0-2 /hpf (0-2) 05/05/24 07:10 Urine WBC 0-5 /hpf (0-5) 05/05/24 07:10 Ur Squamous Epith Cells 0-5 /hpf (0-5) 05/05/24 07:10 Amorphous Sediment Not Reportable 05/05/24 07:10 Urine Bacteria None seen /hpf (NONE) 05/05/24 07:10 Hyaline Casts 2.46 /lpf 05/05/24 07:10 Salicylates < 0.3 mg/dL (3-10) L 05/05/24 05:30 Urine Opiates Screen Positive ng/mL (Negative) H 05/05/24 07:10 Acetaminophen < 5.0 ug/mL (10-30) L 05/05/24 05:30 Ur Barbiturates Screen Negative ng/mL (Negative) 05/05/24 07:10 Ur Phencyclidine Scrn Negative ng/mL (Negative) 05/05/24 07:10 Ur Amphetamines Screen Negative ng/mL (Negative) 05/05/24 07:10 U Benzodiazepines Scrn Positive ng/mL (Negative) H 05/05/24 07:10 Urine Cocaine Screen Negative ng/mL (Negative) 05/05/24 07:10 U Marijuana (THC) Screen Negative ng/mL (Negative) 05/05/24 07:10 Ethyl Alcohol < 10 mg/dL (0-10) 05/05/24 05:30 Discharge Plan Discharge Patient Disposition: Admitted As Inpatient Clinical Impression: Suicide attempt by multiple drug overdose, Bicuspid aortic valve, Type 2 diabetes mellitus Condition: Stable Prescriptions: No Action albuterol sulfate [Ventolin HFA] 90 mcg/actuation HFA aerosol inhaler 2 puff inhalation Q6H PRN (Reason: shortness of breath or wheezing) Qty: 8.5 2RF lisinopril 20 mg tablet 20 mg PO DAILY PRN (Reason: DIRECTED) bupropion HCl 150 mg tablet extended release 24 hr 150 mg PO QAM Referrals: Capri Ramires FNP [Primary Care Provider] - Sign Out Sign Out Data: Patient Sign Out occurred on 05/05/24 at 08:04. Patient's care was discussed, and care was transferred from Jc Ray DO to Michoacano Hector DO. Coding Level of Care Code ED Neurology Physician for Candice Stewart
[2024-05-05 05:40] LABS: Basophils % 0.1 %; Hematocrit 40.3 % (36-47); Lymphocytes # 0.6 10^3/uL (0.8-4.8); Lymphocytes % 7.5 %; Mean Corpuscular HGB Conc 32.5 g/dL (30-55); Mean Corpuscular Hemoglobin 29.1 pg (27-33); Mean Corpuscular Volume 89.6 fl (85-98); Monocytes # 0.2 10^3/uL (0.2-0.9); Monocytes % 2.6 %; Neutrophils # 7.54 10^3/uL (1.8-7.7); Neutrophils % 89.6 %; Nucleated Red Blood Cells % 0 %; Platelet Count 220 10^3/cmm (157-399); White Blood Count 8.42 10^3/uL (3.29-11.43)
--- NOTE | 2024-05-05 05:42 | PC.NURSE ---
Poison control contacted at this time, info being faxed.
[2024-05-05] MEDS: sodium chloride 0.9% 1,000 ML 999 ML IV (05:43)
[2024-05-05 05:48] LABS: ABG PCO2 41.6 mmHg (35-45); ABG PH Result 7.39 (7.35-7.45); Alveolar-Arterial Oxygen Gradi 3.1 mmHg (5-10); Arterial Blood Gas Hematocrit 39.9 % (37-47); Base Excess ABG 0.2 mmol/L (-2.0-2.0); Blood Gas Allen Test Pos; Blood Gas Operator Identificat CL; Blood Gas Sample Site Radial, right; Blood Gas Sample Type Arterial; Carboxyhemoglobin 0.8 %THgb (0.4-20.1); HCO3 ABG 25.2 mmol/L (22-26); HGB O2 Sat 93.6 % (95-100); Ionized Calcium Level - ABG 1.2 mmol/L (1.1-1.4); Methemoglobin 1.2 % (0.4-1.5); Oxygen Device NC; Oxygen Saturation ABG 95.6; PO2 ABG 73.4 mmHg (80.0-100.0); Potassium Level - ABG 3.7 mmol/L (3.5-5.0)
[2024-05-05 05:54] LABS: INR 0.89 (0.8-1.2)
--- NOTE | 2024-05-05 05:56 | PC.NURSE ---
96 [facility] Pt served with copy of 96 [facility] by this RN and security. Pt sleepy, able to answer question appropriately.
[2024-05-05 06:00] LABS: Troponin(5th) Baseline < 6 ng/L (0-10)
[2024-05-05 06:07] LABS: Alanine Aminotransferase 20 U/L (0-33); Albumin Level 4.3 g/dL (3.5-5.2); Alkaline Phosphatase 137 U/L (35-105); Anion Gap 16.6 (5-19); Aspartate Amino Transferase 15 U/L (0-32); Blood Urea Nitrogen 13 mg/dL (6-20); Calcium 9.6 mg/dL (8.5-10.5); Carbon Dioxide 24 mmol/L (22-29); Chloride 101 mmol/L (98-107); Creatinine Clr Calc Pharmacy 98.7772; Globulin 2.5 g/dL (1.3-4.6); Glomerular Filtration Rate 105.4 mL/min (90-130); Glucose 179 mg/dL (65-115); Osmolality Calculated 289 mOsm/kg (285-295); Phosphorus 3.7 mg/dL (2.5-4.5); Potassium 4.6 mmol/L (3.5-5.1); Sodium 137 mmol/L (136-145); Total Bilirubin 0.4 mg/dL (0.15-1.2); Total Protein 6.8 g/dL (6.6-8.7)
[2024-05-05 06:08] LABS: Acetaminophen < 5.0 ug/mL (10-30); Alcohol Level < 10 mg/dL (0-10); Salicylate < 0.3 mg/dL (3-10)
[2024-05-05 06:16] LABS: Thyroid Stimulating Hormone 0.76 uIU/mL (0.27-4.20)
--- NOTE | 2024-05-05 06:57 | PC.NURSE ---
took over pt care from RYLAN Ramírez at [phone]
[2024-05-05 07:17] LABS: Bilirubin Urine Negative (Negative); Blood Urine Negative (Negative); Glucose Urine UA Trace (Normal); Ketones Urine 1+ (Negative); Leukocyte Esterase Urine Negative (Negative); Nitrate Urine Negative (Negative); Protein Urine Negative (Negative); Specific Gravity, Urine 1.017 (1.005-1.030); Urine Appearance Clear (CLEAR); Urine Color Yellow (Yellow)
--- NOTE | 2024-05-05 07:18 | PC.PHAR ---
Pt unable to verify home medications. Med rec completed by using current med list from [facility] with fill dates and days supply.
[2024-05-05 07:19] LABS: Add Urine Microscopic? YES; Bacteria Urine None Seen /hpf; Hyaline Casts Urine 2.46 /lpf; RBC Urine 0-2 /hpf (0-2); Squamous Epithelial Cell Urine 0-5 /hpf (0-5); WBC Urine 0-5 /hpf (0-5)
[2024-05-05 07:26] LABS: Amphetamines Screen Urine Negative (Negative); Barbiturates Screen Urine Negative (Negative); Benzodiazepines Screen Urine Positive (Negative); Cocaine Screen Urine Negative (Negative); Opiate Screen Urine Positive (Negative); PCP Screen Urine Negative (Negative); THC Screen Urine Negative (Negative)
--- NOTE | 2024-05-05 07:27 | ECG_ITS ---
[facility] Test Date: 2024-05-05 Pat Name: Yesenia Patel Department: Room: Gender: Female [employer] Consultant: : 1970 Requested By: Jc Ray Order Number: [id number] Colby MD: Elvin Verdin M.D. Measurements Intervals [place] Rate: 66 P: 57 [place]: 198 QRS: 69 QRSD: 95 T: 63 QT: 423 QTc: 445 Interpretive Statements SINUS RHYTHM Compared to ECG 05/05/2024 05:22:09 ST (T wave) deviation no longer present Electronically Signed On 05-05-2024 16:56:42 CDT by Elvin Verdin M.D. [id number]
--- NOTE | 2024-05-05 07:37 | PC.NURSE ---
PT ambulated well from room 10 to room 8. PT is alert and oriented x4. PT is calm and cooperative for staff
[2024-05-05 07:57] LABS: Troponin 5 2HR Delta 0.00001 ABS# (0-10)
--- NOTE | 2024-05-05 08:32 | PC.NURSE ---
attempted report to [facility] @ [phone], this nurse was informed that [facility] nurse is on the phone and she will call me back.
--- NOTE | 2024-05-05 10:25 | ECG_ITS ---
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 Measurements Intervals [place] Rate: 46 P: 62 [place]: 175 QRS: 81 QRSD: 97 T: 78 QT: 456 QTc: 399 Interpretive Statements SINUS BRADYCARDIA Compared to ECG 05/05/2024 07:37:52 Sinus rhythm no longer present Electronically Signed On 05-05-2024 16:52:33 CDT by Elvin Verdin M.D. [id number]
[2024-05-05] MEDS: ondansetron 4 MG Tablet PO (11:45)
[2024-05-05 12:03] LABS: Troponin 5 6HR Delta 0.00001 ng/L (0-12)
--- NOTE | 2024-05-05 12:39 | W.PM.NPUH&PS ---
Providers/Chief Complaint Admitting Physician: Sebastien Dixon MD Primary Care Provider: MARIANNA Jaquez Chief Complaint: OD HPI NPU History of Present Illness Yesenia Patel is a 53 year old female with no previous history of inpatient hospitalizations psychiatrically who presented to the emergency department with patient stating that she had taken approximately 5 to 10 pills of 20 mg lisinopril and 9 tablets of MS IR morphine with intention to harm herself. Patient stated that she may have taken these pills approximately 1 hour prior to arriving at the emergency department at 5:30 AM on 05/05/2024. The patient had been given 1 mg of Narcan prior to the arrival in the emergency department. The patient was admitted to the neuropsychiatric unit after being cleared in the emergency department for further evaluation and treatment. The patient on admission had clarified having taken anywhere from 5 to 10 tablets of lisinopril along with her 9 tablets of MS IR 15 mg with suicidal intent. She had reported that she immediately regretted taking these medications. She had reported that she had been feeling more depressed over the past few weeks. She had reported that she had recently from her of 18 years just 2 days ago. She had been at a friend's house relaying her problems and this was a new place that she was residing at for the past 2 days. She reports that she has been struggling with not feeling rested when awakening. She reports low energy and feeling tired constantly. She reports having frequent awakenings at night. She does report feeling more tearful and sad and reported having suicidal thoughts for several days. She had reported prep past episodes of depression but stated that they had been less intense or severe. She had reported finding decreased pleasure in completing previously enjoyable activities. She denied any history of sandra nor did she endorse any psychosis. She denied any significant history of alcohol or illicit drug use. She does report having increased problems with concentration. She had endorsed feeling more hopeless recently. She had reported that she had had more significant medical problems over the past year with 2 separate episodes of acute pancreatitis that were associated with Mounjaro and Ozempic separately. She had reported having a history of anxiety and stated that she had been taking Wellbutrin for years to manage her depression and anxiety. She reported having problems with feeling anxious in particular social situations but did not endorse a history of panic symptoms nor did she endorse any symptoms suggestive of obsessive-compulsive disorder. Inpatient psychiatric history: None Outpatient psychiatric history: She reported at least 3 previous trials on SSRI medications that she could not recall but stated that she had been on Wellbutrin for several years. She had received previous outpatient follow-up with her primary care physician only and has no history of psychotherapy. Substance abuse history: None reported with occasional use of alcohol only. Medical history: Bicuspid aortic valve, type 2 diabetes mellitus, history of medication induced pancreatitis x 2, hypertension, Surgical history: Cholecystectomy, breast reduction Current medications: Wellbutrin XL 150 mg daily, lisinopril 20 mg daily history: None Legal history: None Family psychiatric history: Depression Sister and mother. Social history: Patient was raised in [facility] and is the youngest of 3 siblings. She had reported no problems in school with no history of learning disabilities. She had reported no history of trauma during her childhood or adulthood. She stated that she has been 3 previous times and is currently from her third . She has 3 adult aged children. She had been working for the [employer] and [employer] for many years. She had been recently residing with her until 2 days ago at which time she moved in with a friend. Meds NPU Home Medications Medication Instructions Recorded Confirmed Last Taken Type albuterol sulfate 90 mcg/actuation 2 puff inhalation Q6H PRN 11/19/23 05/05/24 Unknown Rx aerosol inhaler (Ventolin HFA) shortness of breath or wheezing #8.5 grams bupropion HCl 150 mg 24 hr tablet, 150 mg PO QAM 02/25/24 05/05/24 02/23/24 History extended release lisinopril 20 mg tablet 20 mg PO DAILY PRN DIRECTED 02/25/24 05/05/24 Unknown History Allergies Allergy/AdvReac Type Severity Reaction Status Date / Time hydromorphone [From Dilaudid] Allergy Unknown Verified 05/05/24 05:30 codeine AdvReac Severe NAUSEA Verified 05/05/24 05:30 PFS NPU PFSH: Medical History Type 2 diabetes mellitus Pancreatitis Palpitations Leg swelling Bicuspid aortic valve Benign essential HTN Herpes Surgical History History of cholecystectomy February 2024 S/P hysterectomy Hx of breast reduction, elective Family History Mother Cancer THYROID Diabetes CAD (coronary artery disease) Stroke Brother CAD (coronary artery disease) Diabetes Denies family history of Clotting disorder Dementia Chronic kidney disease (CKD) Suicide Anesthesia complication Bleeding disorder Lung disease Social History Smoking and tobacco/nicotine status: never used tobacco/nicotine Second hand smoke exposure: No Alcohol intake: current Alcohol intake frequency: holidays/special occasions only Substance/Drug Use: never Household members: spouse Marital status: Mental Status Exam MSE Comments: Casually dressed female with fair hygiene who was lying in bed and appeared in mild to moderate distress. Her gait was not tested. Her pupils were 2 and respiration was 12. Her speech was decreased in volume and slightly decreased in productivity. There was significant psychomotor retardation noted as she was tearful during the interview as well. Her mood was described as depressed. Her affect was restricted in range and mood congruent. She had acknowledged having overdosed with suicidal intent but reported feeling relieved that she was currently alive. She had endorsed a sense of hopelessness. She did not appear to be responding internal stimuli. There was no clear evidence of delusional thinking. Her attention span appeared fair. Her recent remote memory were grossly intact. Her insight was poor. Her judgment is poor. Her impulse control appeared limited at this time. She was alert and oriented to person place time and situation. Vitals/I&O/Wt Last Vital Signs Temp 97.4 F L 05/05/24 09:41 Pulse 73 05/05/24 09:41 Resp 16 05/05/24 09:41 BP 126/82 05/05/24 09:41 Pulse Ox 96 05/05/24 09:41 O2 Del Method Room Air 05/05/24 05:38 05/04/24 05/05/24 05/05/24 22:59 06:59 14:59 Intake Total 1000 / 1000 Balance 1000 / 1000 Weight last 48 hrs Weight 58.967 kg Data NPU 05/05/24 05:30 05/05/24 05:30 A&P Assessment and plan (1) Anxiety disorder, unspecified: (2) Major depressive disorder, recurrent: (3) Suicide attempt by multiple drug overdose: Plan 53-year-old female who reports a history of depression and anxiety for several years admitted after an overdose on morphine and lisinopril with suicidal intent with recent stressors including separation with . #1.? Engage patient in individual milieu and group therapy. #2?? Recommend sober living treatment at the highest level of care to which the patient is willing to commit #3???Monitor for effects of overdose/may require transfer to CSU due to concerns of bradycardia, hyperkalemia from lisinopril. Will restart medications with increase in wellbutrin xl likely. #4?? TO-15 minute checks #5?? Will attempt to gather collateral information Attestations NPU Medical Necessity Statement*: Inpatient hospitalization is medically necessary and deemed to ?be ?the clinically appropriate intervention ?at this time.? We will monitor/initiate medications and make changes as indicated.? The patient will be in the hospital for over 2 midnights.? The patient?s likely length of stay 5-7days. Coding Level of Care Code Acute Code for [facility] Fwd Diagnoses Anxiety disorder, unspecified F41.9 Major depressive disorder, recurrent F33.9 Suicide attempt by multiple drug overdose T50.912A
--- NOTE | 2024-05-05 12:45 | PC.NURSE ---
Patient reportedly overdosed on 9 tablets of morphine and a handful of lisinopril. She had stated she doesn't want to be here anymore. Patient says she was at a friend's house when she had taken the pills. She also endorses drinking 2 beers. She was tearful during assessment and says she and her of 20 years recently . Patient stated, I needed a break and I guess it broke him. She denies si/hi and avh currently. Denies any history of suicide attempts, outpatient psych tx, or previous stays in psych facilities. Denies any alcohol or drug abuse.
--- NOTE | 2024-05-05 13:39 | PM.CONSULT ---
Providers/Reason For Consult Consulting Physician/Specialty*: Internal medicine Reason for Consult*: Medical management of drug overdose Attending Physician: Sebastien Dixon MD Primary Care Provider: MARIANNA Jaquez History of Present Illness History of Present Illness Yesenia Patel is a 53 year old female with a past medical history significant for type 2 diabetes mellitus, herpes simplex, and hypertension who is currently admitted to the NPU for intentional drug overdose. She initially presented emergency department this morning with lisinopril and morphine overdose. She was treated with Narcan. She was admitted to the NPU. Internal medicine consulted for medical management of lisinopril and morphine overdose. She is noted to have changes in her vitals throughout the course in the morning including bradypnea and bradycardia concerning for possible need for medical intervention. Upon assessment, patient is awake but slightly lethargic. She endorses significant nausea. Reports she received some Zofran prior to evaluation. We discussed need to monitor on the medical floor given possible respiratory depression as Narcan is wearing off as well as repeating blood work to evaluate for hyperkalemia and renal injury tomorrow. Patient is agreeable to transfer. Patient discussed with current attending Dr. Dixon. Review of Systems Narrative: A complete review of systems was obtained and is negative except as stated in HPI. Medications/Allergies Home Medications Medication Instructions Recorded Confirmed Last Taken Type albuterol sulfate 90 mcg/actuation 2 puff inhalation Q6H PRN 11/19/23 05/05/24 Unknown Rx aerosol inhaler (Ventolin HFA) shortness of breath or wheezing #8.5 grams bupropion HCl 150 mg 24 hr tablet, 150 mg PO QAM 02/25/24 05/05/24 02/23/24 History extended release lisinopril 20 mg tablet 20 mg PO DAILY PRN DIRECTED 02/25/24 05/05/24 Unknown History Allergies Allergy/AdvReac Type Severity Reaction Status Date / Time hydromorphone [From Dilaudid] Allergy Unknown Verified 05/05/24 05:30 codeine AdvReac Severe NAUSEA Verified 05/05/24 05:30 Current Medications Generic Name Dose Route Start Last Admin Trade Name Freq PRN Reason Stop Dose Admin Ondansetron HCl 4 mg 05/05/24 09:37 05/05/24 11:45 Ondansetron 4 Mg Tablet PO 4 mg Q6H PRN Administration NAUSEA AND VOMITING PFSH Acute PFSH: Medical History (Updated 05/05/24 @ 13:45 by Francisco Saini MD) Colon cancer screening declined PVC (premature ventricular contraction) Rotator cuff impingement syndrome of left shoulder Palpitations Vertigo Fatigue Weight gain Type 2 diabetes mellitus Pancreatitis Palpitations Leg swelling Bicuspid aortic valve Benign essential HTN Herpes Surgical History (Updated 05/05/24 @ 13:45 by Francisco Saini MD) History of cholecystectomy February 2024 S/P hysterectomy Hx of breast reduction, elective Family History Mother Cancer THYROID Diabetes CAD (coronary artery disease) Stroke Brother CAD (coronary artery disease) Diabetes Denies family history of Clotting disorder Dementia Chronic kidney disease (CKD) Suicide Anesthesia complication Bleeding disorder Lung disease Social History Smoking and tobacco/nicotine status: never used tobacco/nicotine Second hand smoke exposure: No Alcohol intake: current Alcohol intake frequency: holidays/special occasions only Substance/Drug Use: never Household members: spouse Marital status: Female Reproductive History: Date of last menstrual period: 05/05/14 Vitals/I&O/Wt Last Vital Signs Temp 97.9 F 05/05/24 13:11 Pulse 61 05/05/24 13:11 Resp 14 05/05/24 13:11 BP 136/74 05/05/24 13:11 Pulse Ox 99 05/05/24 13:11 O2 Del Method Room Air 05/05/24 13:11 05/04/24 05/05/24 05/05/24 22:59 06:59 14:59 Intake Total 1000 / 1000 Balance 1000 / 1000 Weight last 48 hrs Weight 58.967 kg Physical Exam Narrative: General: Patient is awake. Slightly lethargic. Very pleasant. Interactive. Head: Normocephalic. Atraumatic. EOM intact. Neck: No JVD. Cardiovascular: RRR. No gallops. No murmurs. Lungs: Clear to auscultation, no use of accessory muscles, no crackles or wheezes. Skin: No jaundice. No rashes. Abdomen: Normal bowel sounds, abdomen soft and nontender. Genito Urinary: Genital exam not performed since complaints not related. Rectal: Rectal exam not performed since no symptoms indicated blood loss. Extremities: No cyanosis or clubbing. Musculoskeletal: No o swollen or erythematous joints. Neurological: Moves all 4 extremities. No myoclonus. Data 05/05/24 05:30 05/05/24 05:30 A&P Assessment and plan (1) Morphine overdose: Patient received Narcan which is likely worn off now Morphine half-life is longer than Narcan, she may need repeat dosing Transfer to CSU for continuous cardiopulmonary monitoring If respiratory rate reaches 10 or less, proceed with repeat Narcan dose (2) Intentional overdose of angiotensin converting enzyme inhibitor (MIGUE-I): At risk for electrolyte imbalance and renal failure Continuous telemetry monitoring Check potassium level and renal function in a.m. Strict I's and O's (3) Suicide attempt by multiple drug overdose: Intentional drug of dose secondary to morphine and lisinopril Management for H medication as above Suicide precautions Psychiatry following, will transfer back to NPU when medically cleared (4) Anxiety disorder, unspecified: Per psychiatry (5) Major depressive disorder, recurrent: Per psychiatry (6) Type 2 diabetes mellitus: Diet controlled, last A1c 5.2 (January 2024) Continue with diet control Qualifiers: Diabetes mellitus detention insulin use: without terminal supervisor use Diabetes mellitus complication status: with hyperglycemia Qualified Code(s): E11.65 - Type 2 diabetes mellitus with hyperglycemia Plan DVT ppx: Low risk. Code: Full Code. Consult Attestations Medical Necessity Statement: Thank for this consultation. Patient was transferred over to the cardiac stepdown unit for continuous cardiopulmonary monitoring. Coding Level of Care Code Acute Code for [facility] Diagnoses Morphine overdose T40.2X1A Intentional overdose of angiotensin converting enzyme inhibitor (MIGUE-I) T45.0X2A Suicide attempt by multiple drug overdose T50.912A Anxiety disorder, unspecified F41.9 Major depressive disorder, recurrent F33.9 Type 2 diabetes mellitus with hyperglycemia, without long-term current use of insulin E11.65 Diabetes mellitus terminal supervisor insulin use: without terminal supervisor use Diabetes mellitus complication status: with hyperglycemia
--- NOTE | 2024-05-05 14:19 | PC.NURSE ---
received in to room 107 from npu at 1315.report received.1:1 sitter instituted.extraneous supplies in room were removed.pt is calm and cooperative.alert and oriented x 4.hr sr-sb 40's-50's.bp 136/74.pt denies pain at present.pt stated that she regrets terribly,taking the meds this morning.also stated that she was in the hospital about a month ago..and was told her hr dropped into the 30's when she was asleep.there was no follow-up for this.oriented to room environment.instructed to notify staff for any pain,dizziness..or for any concerns at all.pt verb understanding of instructions
[2024-05-05] MEDS: acetaminophen 325 mg Tablet 650 MG PO (16:10)
--- NOTE | 2024-05-05 17:55 | PC.NURSE ---
transfer to room [facility]-1 via w/c.report given to roro smith.
--- NOTE | 2024-05-05 21:20 | PC.NURSE ---
At time of assessment patient was found lying in bed in the left lateral position, respirations normal and even, and eyes closed. She aroused to verbal stimulation, and was able to answer all questions appropriately. She was cooperative and pleasant during the assessment. She reported no immediate thoughts of suicidal ideation or feelings of anxiety, but did report that earlier in the day she did feel some mild anxiety and that her heart skipped a few beats. This nurse provided education about the pvc monitor, techniques to help with feelings of anxiety, and available PRN medications as well as safety precautions. The patient was agreeable to all information provided and stated she would let staff know if she needed anything.
[2024-05-06] VITALS (15 sets, daily range): BP systolic 97–156; BP diastolic 59–81; PULSE 45–66; RESP 8–18; TEMP 36.6–37.1; O2SAT 95–98
[2024-05-06] MEDS: acetaminophen 325 mg Tablet 650 MG PO ×2 (02:23→13:38)
[2024-05-06] MEDS: naloxone 0.4 mg/ml SDV 0.1 MG IVP (02:29)
--- NOTE | 2024-05-06 04:35 | PC.NURSE ---
At 0140 this nurse relieved the 1:1 sitter for a short break. During this time respirations were counted for 60 seconds x2, the first resulted in a respiratory rate of 8 and the second resulted in a respiratory rate of 10. The sitter came back after several minutes and this nurse notified Carisa Cruz railway shunter, and Carisa Cruz RN attended the room at 0154 with this nurse to assess the patient and verify respiratory rate. Carisa Cruz RN counted respirations for 60 seconds, the respiratory rate was 9. Vitals at this time were HR 49, BP 133/69, SpO2 98% on room air, and temperature of 98.0F. This nurse notified Dr. Stallworth via phone call at 0[address] and [address] orders to [address] the patient on a continuous pulse oximetry order and administer narcan 0.1mg IVP Q2M PRN for respiratory rate less than 10. The patient had not had an IV placed since being transferred to the [facility] room, so after two attempts by this nurse Carisa Cruz placed a 20g IV in the patient's right wrist. Narcan was administered as ordered at 0229. This nurse then stayed in the room for 15 minutes. The patient's respiratory rate at 0243 was 12, she was resting comfortably in bed with her eyes closed, and the 1:1 sitter was present. Respiratory rate was then reassessed at 0343 by Nona Danielle RN. He counted 10 respirations over 60 seconds. This nurse then returned to the room at 0410 to reassess respiratory rate, at this time it was 12, her heart was 62, and she was saturating 97% on room air.
[2024-05-06 06:18] LABS: Albumin Level 3.4 g/dL (3.5-5.2); Anion Gap 15.2 (5-19); Blood Urea Nitrogen 12 mg/dL (6-20); Calcium 8.9 mg/dL (8.5-10.5); Carbon Dioxide 25 mmol/L (22-29); Chloride 104 mmol/L (98-107); Creatinine Clr Calc Pharmacy 98.7772; Glomerular Filtration Rate 105.4 mL/min (90-130); Glucose 124 mg/dL (65-115); Phosphorus 3.4 mg/dL (2.5-4.5); Potassium 4.2 mmol/L (3.5-5.1); Sodium 140 mmol/L (136-145)
--- NOTE | 2024-05-06 08:57 | PC.OT ---
OT EVALUATION ORDERS RECEIVED FOR NPU GROUPS. PATIENT NOT ON NPU AT THIS TIME. WILL AWAIT TRANSFER TO COMPLETE EVALUATION.
--- NOTE | 2024-05-06 12:18 | P.PN_ITS ---
Subjective 2 Subjective: Patient reports she is feeling much better. Nausea has resolved. She is awake and alert. I discussed possible transitioning to NPU today once medically cleared. She is agreeable to plan. Addendum: Case reviewed with psychiatrist Dr. Dixon. Patient did receive additional Narcan dose early a.m. Will continue to monitor closely on the medical unit this morning. She may be able to transition to NPU still later today pending clinical course. Medications: Reviewed: Yes Vitals/I&O/Wt Last Vital Signs Temp 98.1 F 05/06/24 12:00 Pulse 61 05/06/24 12:00 Resp 14 05/06/24 12:00 BP 111/62 05/06/24 12:00 Pulse Ox 95 05/06/24 12:00 O2 Del Method Room Air 05/06/24 04:45 05/05/24 05/06/24 05/06/24 22:59 06:59 14:59 Intake Total 360 / 1360 240 / 240 Balance 360 / 1360 240 / 240 Weight last 48 hrs Weight 58.967 kg Physical Exam 2 Narrative: General: Patient is awake. Alert. Very pleasant. Conversational. Head: Normocephalic. Atraumatic. EOM intact. Neck: No JVD. Cardiovascular: RRR. No gallops. No murmurs. Lungs: Clear to auscultation, no use of accessory muscles, no crackles or wheezes. Skin: No jaundice. No rashes. Abdomen: Normal bowel sounds, abdomen soft and nontender. Extremities: No cyanosis or clubbing. Musculoskeletal: No o swollen or erythematous joints. Neurological: Moves all 4 extremities. No myoclonus. Data 05/05/24 05:30 05/06/24 05:03 A&P Assessment and plan (1) Morphine overdose: Patient is currently asymptomatic, however she did receive a Narcan dose early a.m. Continue to monitor vitals closely (2) Intentional overdose of angiotensin converting enzyme inhibitor (MIGUE-I): Potassium and renal function remain normal (3) Suicide attempt by multiple drug overdose: Intentional drug of dose secondary to morphine and lisinopril Suicide precautions Psychiatry following, will transfer back to NPU when medically cleared, likely this afternoon (4) Anxiety disorder, unspecified: Per psychiatry (5) Major depressive disorder, recurrent: Per psychiatry (6) Type 2 diabetes mellitus: Diet controlled, last A1c 5.2 (January 2024) Continue with diet control Qualifiers: Diabetes mellitus construction project administrator insulin use: without construction project administrator use Diabetes mellitus complication status: with hyperglycemia Qualified Code(s): E11.65 - Type 2 diabetes mellitus with hyperglycemia Plan DVT ppx: Low risk. Code: Full Code. Attestations 2 Medical Necessity Statement*: Patient requires ongoing hospitalization for monitoring of recurrence of respiratory suppression in the setting of known morphine overdose, psychiatric care in the setting of intentional drug overdose. Coding Level of Care Code Acute Code for [facility] Fwd Diagnoses Morphine overdose T40.2X1A Intentional overdose of angiotensin converting enzyme inhibitor (MIGUE-I) T45.0X2A Suicide attempt by multiple drug overdose T50.912A Anxiety disorder, unspecified F41.9 Major depressive disorder, recurrent F33.9 Type 2 diabetes mellitus with hyperglycemia, without long-term current use of insulin E11.65 Diabetes mellitus longterm insulin use: without longterm use Diabetes mellitus complication status: with hyperglycemia
--- NOTE | 2024-05-06 16:38 | PC.NURSE ---
This nurse called report to Larisa in NPU at 1637. This nurse explained that pt will eat dinner up here and shower and then I will call security to help transport pt to NPU.
--- NOTE | 2024-05-06 17:48 | P.NPUPN_ITS ---
Subjective NPU 2 Subjective: 53-year-old female admitted with suicide attempt after overdosing on morphine sulfate and 10 tablets of lisinopril 20 mg. Patient was seen on the medical floor with concerns after the patient had received additional Narcan with reports of decreased respiration earlier this morning at approximately 3 AM. The patient had reported that she was feeling better. She had continued to endorse depression and had minimized having suicidal thoughts. She had reported interest in psychotherapy and reported that she wanted her medication adjusted for managing her depression and anxiety. She had reported compliance with her Wellbutrin for years. She had reported some increase stressors from her recent separation from her . Mental Status Exam 2 MSE Comments: Casually dressed female with fair hygiene who was lying in bed and appeared in mild distress. Her gait was not tested. Her speech was normal in productivity and volume. There was mild psychomotor retardation noted. Her mood was described as depressed. Her affect was restricted in range and mood congruent. She had acknowledged having overdosed with suicidal intent but no suicidal ideation today. She had endorsed feeling more hopeful. She did not appear to be responding internal stimuli. There was no clear evidence of delusional thinking. Her attention span appeared fair. Her recent remote memory were grossly intact. Her insight was poor. Her judgment is poor. Her impulse control appeared limited at this time. She was alert and oriented to person place time and situation. Vitals/I&O/Wt Last Vital Signs Temp 98.2 F 05/06/24 16:00 Pulse 62 05/06/24 16:00 Resp 14 05/06/24 16:00 BP 133/81 05/06/24 16:00 Pulse Ox 97 05/06/24 16:00 O2 Del Method Room Air 05/06/24 04:45 05/06/24 05/06/24 05/06/24 06:59 14:59 22:59 Intake Total 480 / 480 Balance 480 / 480 Weight last 48 hrs Weight 58.967 kg Data NPU 05/05/24 05:30 05/06/24 05:03 A&P Assessment and plan (1) Anxiety disorder, unspecified: (2) Major depressive disorder, recurrent: (3) Suicide attempt by multiple drug overdose: Plan 53-year-old female who reports a history of depression and anxiety for several years admitted after an overdose on morphine and lisinopril with suicidal intent with recent stressors including separation with . #1.? Engage patient in individual milieu and group therapy. #2?? Recommend sober living treatment at the highest level of care to which the patient is willing to commit #3???Monitor for effects of overdose/may require transfer to CSU due to concerns of bradycardia, hyperkalemia from lisinopril. Will restart medications with increase in wellbutrin xl likely. #4?? TO-15 minute checks #5?? Will attempt to gather collateral information, awaiting transfer back to NPU. Involuntary Hold Information 2 96 Hour Hold: 96 Hour Involuntary Admission: Yes 96 Hour Hold Ending Date: 05/11/24 96 Hour Hold Ending Time: 05:30 Attestations NPU 2 Medical Necessity Statement*: Inpatient hospitalization is medically necessary and deemed to ?be ?the clinically appropriate intervention ?at this time.? We will monitor/initiate medications and make changes as indicated.? ? The patient?s likely length of stay 5-7days. Coding Level of Care Code Acute Code for [facility] Fwd Diagnoses Anxiety disorder, unspecified F41.9 Major depressive disorder, recurrent F33.9 Suicide attempt by multiple drug overdose T50.912A
[2024-05-06] MEDS: trazodone 50 mg Tablet PO (20:58)
[2024-05-07 06:00] VITALS: BP 114/73; PULSE 60; RESP 16; TEMP 36.9; O2SAT 97
[2024-05-07] MEDS: buPROPion XL (24 HR) 150 mg Tablet PO ×2 (08:07→15:06)
[2024-05-07] MEDS: acetaminophen 325 mg Tablet 650 MG PO (12:04)
[2024-05-07 14:00] VITALS: BP 129/82; PULSE 62; RESP 16; TEMP 36.6; O2SAT 97
--- NOTE | 2024-05-07 16:06 | P.NPUPN_ITS ---
Subjective NPU 2 Subjective: 53-year-old female admitted with suicide attempt after overdosing on morphine sulfate and 10 tablets of lisinopril 20 mg. The patient had endorsed feeling much better today. She reported no side effects from the medication. She had endorsed having a history of some social phobia in the past but states that she had been doing better with this problem. She had stated that she had not had her Wellbutrin changed in several years. She had endorsed some depression but reported no suicidal thoughts at this time. She had stated that she was considering going to couples counseling to help her manage her marriage. She reported no feelings of hopelessness at this time. Staff notes patient was less isolative and appropriately engaged in groups. She had requested that she received some outpatient psychotherapy or counseling to help her best manage her anxiety and depression as well as medication. Mental Status Exam 2 MSE Comments: Casually dressed female with fair hygiene who was lying in bed and appeared in mild distress. Her gait was normal. Her speech was normal in productivity and volume. There was mild psychomotor retardation noted. Her mood was described as better. Her affect was less restricted today. She denied suicidal or homicidal ideation. She had endorsed feeling more hopeful. She did not appear to be responding internal stimuli. There was no clear evidence of delusional thinking. Her attention span appeared fair. Her recent remote memory were grossly intact. Her insight was improving. Her judgment is poor. Her impulse control appeared better. She was alert and oriented to person, place, time, and situation. Vitals/I&O/Wt Last Vital Signs Temp 98.4 F 05/07/24 06:00 Pulse 60 05/07/24 06:00 Resp 16 05/07/24 06:00 BP 114/73 05/07/24 06:00 Pulse Ox 97 05/07/24 06:00 O2 Del Method Room Air 05/07/24 06:00 Data NPU 05/05/24 05:30 05/06/24 05:03 A&P Assessment and plan (1) Anxiety disorder, unspecified: (2) Major depressive disorder, recurrent: (3) Suicide attempt by multiple drug overdose: Plan 53-year-old female who reports a history of depression and anxiety for several years admitted after an overdose on morphine and lisinopril with suicidal intent with recent stressors including separation with . #1.? Engage patient in individual milieu and group therapy. #2?? Recommend sober living treatment at the highest level of care to which the patient is willing to commit #3???Increase Wellbutrin xl 300mg in am. #4?? TO-15 minute checks #5?? Discussed Mindfullness to help with MDD/CABRERA/Social anxiety, Referral for CBT may be helpful. Involuntary Hold Information 2 96 Hour Hold: 96 Hour Involuntary Admission: Yes 96 Hour Hold Ending Date: 05/11/24 96 Hour Hold Ending Time: 05:30 Attestations NPU 2 Medical Necessity Statement*: Inpatient hospitalization is medically necessary and deemed to ?be ?the clinically appropriate intervention ?at this time.? We will monitor/initiate medications and make changes as indicated.? ? The patient?s likely length of stay 1-2 days. Coding Level of Care Code Acute Code for [facility] Fwd Diagnoses Anxiety disorder, unspecified F41.9 Major depressive disorder, recurrent F33.9 Suicide attempt by multiple drug overdose T50.912A
[2024-05-07 20:46] VITALS: BP 119/80; PULSE 78; RESP 16; O2SAT 96
[2024-05-07] MEDS: trazodone 50 mg Tablet PO (20:51)
[2024-05-08 04:56] VITALS: BP 113/71; PULSE 76; RESP 16; TEMP 36.6; O2SAT 96
[2024-05-08] MEDS: ibuprofen 600 mg Tablet PO (08:46)
[2024-05-08] MEDS: buPROPion XL (24 HR) 150 mg Tablet 300 MG PO (08:47)
--- NOTE | 2024-05-08 13:27 | W.PM.NPUDCS ---
Diagnoses at Discharge Discharge Diagnosis (1) Anxiety disorder, unspecified: Status: Acute (2) Major depressive disorder, recurrent: Status: Acute (3) Suicide attempt by multiple drug overdose: Status: Acute Reason for Visit Reason for Visit: OD Brief History: History of Present Illness Yesenia Patel is a 53 year old female with no previous history of inpatient hospitalizations psychiatrically who presented to the emergency department with patient stating that she had taken approximately 5 to 10 pills of 20 mg lisinopril and 9 tablets of MS IR morphine with intention to harm herself. Patient stated that she may have taken these pills approximately 1 hour prior to arriving at the emergency department at 5:30 AM on 05/05/2024. The patient had been given 1 mg of Narcan prior to the arrival in the emergency department. The patient was admitted to the neuropsychiatric unit after being cleared in the emergency department for further evaluation and treatment. The patient on admission had clarified having taken anywhere from 5 to 10 tablets of lisinopril along with her 9 tablets of MS IR 15 mg with suicidal intent. She had reported that she immediately regretted taking these medications. She had reported that she had been feeling more depressed over the past few weeks. She had reported that she had recently from her of 18 years just 2 days ago. She had been at a friend's house relaying her problems and this was a new place that she was residing at for the past 2 days. She reports that she has been struggling with not feeling rested when awakening. She reports low energy and feeling tired constantly. She reports having frequent awakenings at night. She does report feeling more tearful and sad and reported having suicidal thoughts for several days. She had reported prep past episodes of depression but stated that they had been less intense or severe. She had reported finding decreased pleasure in completing previously enjoyable activities. She denied any history of sandra nor did she endorse any psychosis. She denied any significant history of alcohol or illicit drug use. She does report having increased problems with concentration. She had endorsed feeling more hopeless recently. She had reported that she had had more significant medical problems over the past year with 2 separate episodes of acute pancreatitis that were associated with Mounjaro and Ozempic separately. She had reported having a history of anxiety and stated that she had been taking Wellbutrin for years to manage her depression and anxiety. She reported having problems with feeling anxious in particular social situations but did not endorse a history of panic symptoms nor did she endorse any symptoms suggestive of obsessive-compulsive disorder. Inpatient psychiatric history: None Outpatient psychiatric history: She reported at least 3 previous trials on SSRI medications that she could not recall but stated that she had been on Wellbutrin for several years. She had received previous outpatient follow-up with her primary care physician only and has no history of psychotherapy. Substance abuse history: None reported with occasional use of alcohol only. Medical history: Bicuspid aortic valve, type 2 diabetes mellitus, history of medication induced pancreatitis x 2, hypertension, Surgical history: Cholecystectomy, breast reduction Current medications: Wellbutrin XL 150 mg daily, lisinopril 20 mg daily history: None Legal history: None Family psychiatric history: Depression Sister and mother. Social history: Patient was raised in [facility] and is the youngest of 3 siblings. She had reported no problems in school with no history of learning disabilities. She had reported no history of trauma during her childhood or adulthood. She stated that she has been 3 previous times and is currently from her third . She has 3 adult aged children. She had been working for the [employer] for many years. She had been recently residing with her until 2 days ago at which time she moved in with a friend. Hospital Course Hospital Course The patient when admitted initially onto the neuropsychiatric unit had periods of declining respiration rate and patient was moved to the medical unit for further evaluation for a little more than 24 hours. She had required additional Narcan to help with managing her overdose on morphine. She appeared to respond well on the milieu and was agreeable to psychotherapy and an increase in Wellbutrin to 300mg at the time of discharge. During the hospitalization, the patient had routine laboratory studies which were within normal limits except for a few outliers.? Additionally, there was a general medical evaluation which was also within normal limits and revealed no new acute processes.? At the time of discharge, lethality was denied and psychosis was resolving.? Mood and anxiety were well managed.? The patient endorsed a plan to avoid all drugs of abuse and follow up with the aftercare recommendations of the treatment team.? The patient was evaluated and deemed to be absent credible lethality and had achieved the maximum benefit from an inpatient hospitalization, and so was discharged. ? Involuntary Hold Information 96 Hour Hold: 96 Hour Involuntary Admission: Yes 96 Hour Hold Ending Date: 05/11/24 96 Hour Hold Ending Time: 05:30 Mental Status Exam MSE Comments: Casually dressed female with fair hygiene who was lying in bed and appeared in mild distress. Her gait was normal. Her speech was normal in productivity and volume. There was mild psychomotor retardation noted. Her mood was described as pretty good. Her affect was brighter on discharge. She denied suicidal or homicidal ideation. She had endorsed feeling more hopeful. She did not appear to be responding internal stimuli. There was no clear evidence of delusional thinking. Her attention span appeared fair. Her recent, remote, memory were grossly intact. Her insight was improving. Her judgment is poor. Her impulse control appeared better. She was alert and oriented to person, place, time, and situation. Discharge Data Studies Completed and Pending: Completed Studies During Hospitalization Category Date Time Status XR chest 1V keri ble [id number] Stat Exams 05/05/24 05:26 Completed Radiology Impressions Chest X-Ray 05/05/24 05:26 IMPRESSION: No acute findings. Laboratory Results WBC 8.42 10^3/uL (3.2 9-11.43) 05/05/24 05:30 RBC 4.50 10^6/uL (3.8 5-5.65) 05/05/24 05:30 Hgb 13.10 g/dL (11.27 -16.99) 05/05/24 05:30 Hct 40.3 % (36-47) 05/05/24 05:30 MCV 89.6 fl (85-98) 05/05/24 05:30 MCH 29.1 pg (27-33) 05/05/24 05:30 MCHC 32.5 g/dL (30-55) 05/05/24 05:30 RDW 13.0 % (12.1-15.1 ) 05/05/24 05:30 Plt Count 220 10^3/cmm (157 -399) 05/05/24 05:30 MPV 10.0 fL (7.4-10.4 ) 05/05/24 05:30 Neut % (Auto) 89.6 % 05/05/24 05:30 Lymph % (Auto) 7.5 % 05/05/24 05:30 Ballard % (Auto) 2.6 % 05/05/24 05:30 Eos % (Auto) 0.0 % 05/05/24 05:30 Baso % (Auto) 0.1 % 05/05/24 05:30 Neut # (Auto) 7.54 10^3/uL (1.8 -7.7) 05/05/24 05:30 Lymph # (Auto) 0.6 10^3/uL (0.8- 4.8) L 05/05/24 05:30 Ballard # (Auto) 0.2 10^3/uL (0.2- 0.9) 05/05/24 05:30 Eos # (Auto) 0.0 10^3/uL (0.0- 0.8) 05/05/24 05:30 Baso # (Auto) 0.0 10^3/uL (0.0- 0.1) 05/05/24 05:30 Nucleated RBC % (a uto) 0 % 05/05/24 05:30 Nucleated RBCs # 0.0 /100WBC 05/05/24 05:30 PT 12.40 SECONDS (12 .1-14.9) 05/05/24 05:30 INR 0.89 (0.8-1.2) 05/05/24 05:30 Specimen Type Arterial 05/05/24 05:42 Sample Site Radial, right 05/05/24 05:42 ABG pH 7.39 (7.35-7.45) 05/05/24 05:42 ABG pCO2 41.6 mmHg (35-45) 05/05/24 05:42 ABG pO2 73.4 mmHg (80.0-1 00.0) L 05/05/24 05:42 ABG HCO3 25.2 mmol/L (22-2 6) 05/05/24 05:42 ABG O2 Saturation 95.6 05/05/24 05:42 ABG Base Excess 0.2 mmol/L (-2.0- 2.0) 05/05/24 05:42 Drake Test Pos 05/05/24 05:42 A-a O2 Gradient 3.1 mmHg (5-10) L 05/05/24 05:42 Hematocrit 39.9 % (37-47) 05/05/24 05:42 Hgb O2 Saturation 93.6 % (95-100) L 05/05/24 05:42 Carboxyhemoglobin 0.8 %THgb (0.4-20 .1) 05/05/24 05:42 Methemoglobin 1.2 % (0.4-1.5) 05/05/24 05:42 Total Hemoglobin 13.0 g/dL (12-16) 05/05/24 05:42 Sodium 140.0 mmol/L (131 -143) 05/05/24 05:42 Potassium 3.7 mmol/L (3.5-5 .0) 05/05/24 05:42 Glucose 172.0 mg/dL (70-1 15) H 05/05/24 05:42 Ionized Calcium 1.2 mmol/L (1.1-1 .4) 05/05/24 05:42 O2 Delivery Device Nc 05/05/24 05:42 O2 Liters/Min 2.0 % 05/05/24 05:42 Activities Director Scouting ID Cl 05/05/24 05:42 Sodium 140 mmol/L (136-1 45) 05/06/24 05:03 Potassium 4.2 mmol/L (3.5-5 .1) 05/06/24 05:03 Chloride 104 mmol/L (98-10 7) 05/06/24 05:03 Carbon Dioxide 25 mmol/L (22-29) 05/06/24 05:03 Anion Gap 15.2 (5-19) 05/06/24 05:03 BUN 12 mg/dL (6-20) 05/06/24 05:03 Creatinine 0.6 mg/dL (0.5-0. 9) 05/06/24 05:03 GFR Calculation 105.4 mL/min (90- 130) 05/06/24 05:03 Glucose 124 mg/dL (65-115 ) H 05/06/24 05:03 Calculated Osmolal ity 289 mOsm/kg (285- 295) 05/05/24 05:30 Calcium 8.9 mg/dL (8.5-10 .5) 05/06/24 05:03 Phosphorus 3.4 mg/dL (2.5-4. 5) 05/06/24 05:03 Magnesium 2.0 mg/dL (1.7-2. 3) 05/05/24 05:30 Total Bilirubin 0.4 mg/dL (0.15-1 .2) 05/05/24 05:30 AST 15 U/L (0-32) 05/05/24 05:30 ALT 20 U/L (0-33) 05/05/24 05:30 Alkaline Phosphata se 137 U/L (35-105) H 05/05/24 05:30 Troponin T Baselin e < 6 ng/L (0-10) 05/05/24 05:30 Troponin T 120 Min shivani 6.00 ng/L (0-10) 05/05/24 07:32 Delta Troponin T 0.76670 ABS# (0-1 0) 05/05/24 07:32 Troponin T Hi Sens 6Hr 6.00 ng/L (0-10) 05/05/24 11:36 Troponin T Hi Sens 6Hr Delta 0.78037 ng/L (0-1 2) 05/05/24 11:36 Total Protein 6.8 g/dL (6.6-8.7 ) 05/05/24 05:30 Albumin 3.4 g/dL (3.5-5.2 ) L 05/06/24 05:03 Globulin 2.5 g/dL (1.3-4.6 ) 05/05/24 05:30 TSH 0.76 uIU/mL (0.27 -4.20) 05/05/24 05:30 Urine Color Yellow (Yellow) 05/05/24 07:10 Urine Appearance Clear (CLEAR) 05/05/24 07:10 Urine pH 6.0 (5-7) 05/05/24 07:10 Ur Specific Gravit y 1.017 (1.005-1.0 30) 05/05/24 07:10 Urine Protein Negative (Negati ve) 05/05/24 07:10 Urine Glucose (UA) Trace (Normal) H 05/05/24 07:10 Urine Ketones 1+ (Negative) H 05/05/24 07:10 Urine Blood Negative (Negati ve) 05/05/24 07:10 Urine Nitrate Negative (Negati ve) 05/05/24 07:10 Urine Bilirubin Negative (Negati ve) 05/05/24 07:10 Urine Urobilinogen 1.0 mg/dL (Negati ve) 05/05/24 07:10 Ur Leukocyte Kaylan ase Negative (Negati ve) 05/05/24 07:10 Urine RBC 0-2 /hpf (0-2) 05/05/24 07:10 Urine WBC 0-5 /hpf (0-5) 05/05/24 07:10 Ur Squamous Epith Cells 0-5 /hpf (0-5) 05/05/24 07:10 Amorphous Sediment Not Reportable 05/05/24 07:10 Urine Bacteria None seen /hpf (N ONE) 05/05/24 07:10 Hyaline Casts 2.46 /lpf 05/05/24 07:10 Salicylates < 0.3 mg/dL (3-10 ) L 05/05/24 05:30 Urine Opiates Scre en Positive ng/mL (N egative) H 05/05/24 07:10 Acetaminophen < 5.0 ug/mL (10-3 0) L 05/05/24 05:30 Ur Barbiturates Sc reen Negative ng/mL (N egative) 05/05/24 07:10 Ur Phencyclidine S crn Negative ng/mL (N egative) 05/05/24 07:10 Ur Amphetamines Sc reen Negative ng/mL (N egative) 05/05/24 07:10 U Benzodiazepines Scrn Positive ng/mL (N egative) H 05/05/24 07:10 Urine Cocaine Scre en Negative ng/mL (N egative) 05/05/24 07:10 U Marijuana (THC) Screen Negative ng/mL (N egative) 05/05/24 07:10 Ethyl Alcohol < 10 mg/dL (0-10) 05/05/24 05:30 Vitals: Last Vital Signs Temp 97.8 F 05/08/24 04:56 Pulse 76 05/08/24 04:56 Resp 16 05/08/24 04:56 BP 113/71 05/08/24 04:56 Pulse Ox 96 05/08/24 04:56 O2 Del Method Room Air 05/08/24 04:56 Discharge Plan Discharge Patient Disposition: Home Condition: Stable Prescriptions: New bupropion HCl 150 mg Tablet Extended Release 24 Hr 300 mg PO DAILY 30 Days Qty: 30 1RF Continued albuterol sulfate [Ventolin HFA] 90 mcg/actuation HFA aerosol inhaler 2 puff inhalation Q6H PRN (Reason: shortness of breath or wheezing) Qty: 8.5 2RF lisinopril 20 mg tablet 20 mg PO DAILY PRN (Reason: DIRECTED) Discontinued bupropion HCl 150 mg tablet extended release 24 hr 150 mg PO QAM Discharge Orders: Discharge Order (Routine); Ordered 05/08/24 Ordered By: Sebastien Dixon Referrals: Capri Ramires FNP [Primary Care Provider] - 05/14/24 10:20 am Discharge Diet: Usual diet Discharge Activity: Resume usual activity Patient Instructions: Depression, Bupropion (By mouth), Opioid Safety Discharge Attestations NPU Time Spent in Discharge Care*: less than 30 min Specific Discharge Activities: Specific discharge activities: educating patient, discussing with immigration case manager/social workers/dc planners and documenting/other paperwork Coding Level of Care Code Acute Code for [facility] Fwd Diagnoses Anxiety disorder, unspecified F41.9 Major depressive disorder, recurrent F33.9 Suicide attempt by multiple drug overdose T50.917F
[2024-05-08 13:34] VITALS: BP 113/71; PULSE 76; RESP 16; TEMP 36.6; O2SAT 96
== END 2024-05-08 13:46 | disposition home or self-care (01) | DRG 918 ==
LOC: ER 08:14 → NP 08:29 → CSU 13:09 → MEDSURG 18:04 → NP 05-06 19:15
PROVIDERS: Emergency Medicine; Internal Medicine; Admitting Provider Psychiatry & Neurology Psychiatry; Emergency Provider Family Medicine; PCP Nurse Practitioner Family; Visit Provider Psychiatry & Neurology Psychiatry
DX: T46.4X2A Poisoning by angiotensin-converting-enzyme inhibitors, intentional self-harm, initial encounter (principal); F33.9 Major depressive disorder, recurrent, unspecified; T40.2X2A Poisoning by other opioids, intentional self-harm, initial encounter; R00.1 Bradycardia, unspecified; F41.9 Anxiety disorder, unspecified; Z63.0 Problems in relationship with spouse or partner; E11.65 Type 2 diabetes mellitus with hyperglycemia; I10 Essential (primary) hypertension; Z81.8 Family history of other mental and behavioral disorders
CPT/HCPCS: 36415; 36600; 71045; 80051; 80053; 80069; 80306; 80307; 81001; 82330; 82805; 83735; 84100; 84443; 84484; 85025; 85610; 93005; 97150; 97165; 99285; J2310; J7030; Q0162

== ENCOUNTER 2024-06-08 09:21 | Day surgery (SDC) | payer OTHER, SELFPAY ==
[2024-06-08 09:31] VITALS: BMI 23.5
[2024-06-08 09:36] VITALS: BP 143/92; PULSE 87; RESP 16; TEMP 36.4; O2SAT 97
[2024-06-08] MEDS: sodium chloride 0.9% 1,000 ML 30 ML IV (09:39)
[2024-06-08 10:00] LABS: Glucose Point of Care 127 mg/dL (70-110)
--- NOTE | 2024-06-08 10:21 | ANES.PREANE2 ---
Pre-Anesthetic Assessment Height/Weight: Height 1.63 m Weight 62.142 kg Temp Pulse Resp BP Pulse Ox O2 Del Method 97.6 F 87 16 143/92 97 Room Air 06/08/24 09:36 06/08/24 09:36 06/08/24 09:36 06/08/24 09:36 06/08/24 09:36 06/08/24 09:36 Preop Diagnosis: screening Operation Date: 06/08/24 10:30 Proposed Procedures p Colonoscopy 27013, G0121, Z12.11(Not Applicable) - Judson Landin MD Familial anesthetic complications: none Last intake: Intake Last Liquid Date 06/07/24 Last Liquid Time 19:30 Last Solid Date 06/06/24 Last Solid Time 19:30 Social No alcohol and No tobacco Exam alert, oriented x 3, clear to auscultation bilaterally and regular rate & rhythm Airway Submandibular: within normal limits Cervical ROM: within normal limits Mallampati: Class II Dentition: full Pulmonary Asthma CV/HEM Hypertension and Palpitations bicuspid aortic valve- just monitoring. None reported Hepatic None reported Metabolic Diabetes [place]non[place]insulin dependent[place] [facility] [place] None reported Neuropsych Anxiety and Depression Anesthetic Plan ASA status: 2 Anesthesia: MAC Medications/Allergies Home Medications Medication Instructions Recorded Confirmed Last Taken Type albuterol sulfate 90 mcg/actuation 2 puff inhalation Q6H PRN 11/19/23 06/04/24 06/07/24 Rx aerosol inhaler (Ventolin HFA) shortness of breath or wheezing #8.5 grams lisinopril 20 mg tablet 20 mg PO DAILY PRN DIRECTED 02/25/24 06/04/24 06/06/24 History bupropion HCl 150 mg 24 hr tablet, 150 mg PO BID 05/14/24 06/04/24 06/07/24 History extended release (Wellbutrin XL) alcohol swabs 1 pad topical DIRECTED #200 ea 05/20/24 06/04/24 06/04/24 Rx blood sugar diagnostic (Blood #200 ea 05/20/24 06/02/24 Unknown Rx Glucose Test strips) blood-glucose meter #1 ea 05/20/24 06/02/24 Unknown Rx lancets #200 ea 05/20/24 06/02/24 Unknown Rx metformin 500 mg tablet 500 mg PO BIDWMEAL #60 tabs 05/20/24 06/04/24 06/06/24 Rx acyclovir 400 mg tablet 400 mg PO TID PRN fever blister 5 06/02/24 06/04/24 Unknown Rx days #30 tabs Allergies Allergy/AdvReac Type Severity Reaction Status Date / Time hydromorphone [From Dilaudid] Allergy Unknown Verified 06/02/24 10:01 codeine AdvReac Severe NAUSEA Verified 06/02/24 10:01 Current Medications Generic Name Dose Route Start Last Admin Trade Name Freq PRN Reason Stop Dose Admin Sodium Chloride 1,000 mls @ 30 mls/hr 06/08/24 09:30 06/08/24 09:39 Sodium Chloride 0.9% IV 30 mls/hr .Q24H JESSI Administration PFSH Anesthesia Medical History Colon cancer screening declined PVC (premature ventricular contraction) Rotator cuff impingement syndrome of left shoulder Palpitations Vertigo Fatigue Weight gain Type 2 diabetes mellitus Pancreatitis Palpitations Leg swelling Bicuspid aortic valve Benign essential HTN Herpes Surgical History History of cholecystectomy February 2024 S/P hysterectomy Hx of breast reduction, elective Family History Mother Cancer THYROID Diabetes CAD (coronary artery disease) Stroke Brother CAD (coronary artery disease) Diabetes Denies family history of Clotting disorder Dementia Chronic kidney disease (CKD) Suicide Anesthesia complication Bleeding disorder Lung disease Social History Smoking and tobacco/nicotine status: never used tobacco/nicotine Second hand smoke exposure: No Alcohol intake: current Alcohol intake frequency: holidays/special occasions only Substance/Drug Use: never Household members: spouse Marital status: Data Anesthesia Cardiac Studies: Echocardiogram 11/30/22 Echocardiogram Ultrasound 06/03/20 Cardiac Event Monitor 05/08/22
--- NOTE | 2024-06-08 10:59 | W.PM.OPSUD ---
Surgery/Procedure H&P Update DATE OF PROCEDURE: June 08, 2024 DATE H&P PERFORMED: 06/02/24 H&P UPDATE INFORMATION: I have reviewed H&P completed within last 30 days, I have examined patient prior to procedure and No changes to prior documentation PREOP DIAGNOSIS: screening PLANNED PROCEDURE: Operation Date: 06/08/24 10:30 Proposed Procedures p Colonoscopy 84939, G0121, Z12.11(Not Applicable) - Judson Landin MD
[2024-06-08 11:22] VITALS: BP 126/71; PULSE 60; RESP 14; TEMP 36.1; O2SAT 100
[2024-06-08 11:43] VITALS: BP 138/71; PULSE 64; RESP 17; O2SAT 100
--- NOTE | 2024-06-08 12:00 | ANE.PACU2 ---
Inpatient post-anesthesia follow up: Airway intact: Yes Vital signs: Temperature 97.0 F Pulse Rate 64 Respiratory Rate 17 Blood Pressure 138/71 Pulse Oximetry 100 Oxygen Delivery Me thod Room Air Oxygen Flow Rate 3 Fraction of Inspir ed Oxygen Hydration adequate: Yes Nausea and vomiting: No Pain level: 1 Mental status: Baseline
== END 2024-06-08 12:00 | disposition home or self-care (01) ==
PROVIDERS: PCP Nurse Practitioner Family; Visit Provider Student in an Organized Health Care Education/Training Program
PROC: 0DJD8ZZ Inspection of Lower Intestinal Tract, Via Natural or Artificial Opening Endoscopic (ICD-10-PCS; CPT 45378; principal; 2024-06-08 10:30)
DX: Z12.11 Encounter for screening for malignant neoplasm of colon (principal); J45.909 Unspecified asthma, uncomplicated; I10 Essential (primary) hypertension; E11.9 Type 2 diabetes mellitus without complications; Z79.84 Long term (current) use of oral hypoglycemic drugs
CPT/HCPCS: 36416; 45378; 45380; 82962; J2704; J7030

== ENCOUNTER → 2024-11-04 11:31 | Outpatient (BNVA) | payer OTHER, SELFPAY | PROVIDERS: PCP Nurse Practitioner Family; Visit Provider Nurse Practitioner Family | DX: E11.65 Type 2 diabetes mellitus with hyperglycemia (principal); N32.81 Overactive bladder | CPT/HCPCS: 80053; 80061; 81000; 81003; 82607; 83036; 83735; 84443; 85025 ==

== ENCOUNTER → 2025-02-26 12:25 | Outpatient (BNVA) | payer OTHER, SELFPAY | PROVIDERS: PCP Nurse Practitioner Family; Visit Provider Nurse Practitioner Family | DX: E11.65 Type 2 diabetes mellitus with hyperglycemia (principal) | CPT/HCPCS: 80053; 80061; 83036; 83735; 84443; 85025 ==